=== PATIENT | female | born 1980 | race Caucasian/White ===

== ENCOUNTER 2021-03-25 12:25 | Outpatient (REF) | payer MEDICARE, MEDICAID, SELFPAY ==
--- NOTE | ~2021-03-25 | XR_ITS ---
EXAMINATION: BILATERAL KNEE X-RAY CLINICAL INFORMATION: Arthritis COMPARISON: None TECHNIQUE: 2 views of each knee FINDINGS: Bone alignment is normal. No fracture or dislocation is seen. Joint spaces are normal. There is no joint effusion. There is a small soft tissue calcification superficial to the right patellar tendon. XR/XR knee LT 2V IMPRESSION: No evidence of arthritis.
--- NOTE | ~2021-03-25 | XR_ITS ---
EXAMINATION: BILATERAL KNEE X-RAY CLINICAL INFORMATION: Arthritis COMPARISON: None TECHNIQUE: 2 views of each knee FINDINGS: Bone alignment is normal. No fracture or dislocation is seen. Joint spaces are normal. There is no joint effusion. There is a small soft tissue calcification superficial to the right patellar tendon. XR/XR knee RT 2V IMPRESSION: No evidence of arthritis.
== END 2021-03-25 12:26 | disposition home or self-care (01) ==
LOC: HO.XRAY 12:25
PROVIDERS: PCP Internal Medicine; Visit Provider Psychiatry & Neurology Neurology
DX: M19.90 Unspecified osteoarthritis, unspecified site (principal)
CPT/HCPCS: 73560

== ENCOUNTER 2021-05-07 12:37 | Outpatient (REF) | payer MEDICARE, MEDICAID, SELFPAY ==
[2021-05-07 13:33] LABS: MANUAL DIFF FLAG NO
[2021-05-07 13:50] LABS: Basophils Percent Auto 0.2 % (0-2); Eosinophils Absolute Auto 0.1 X10*3/uL (0.0-0.4); Eosinophils Percent Auto 0.5 % (0-4); Hematocrit 45.4 % (37-47); Hemoglobin 14.8 g/dl (12.0-16.0); Imm Gran Abs Auto 0.05 X10*3/uL (0.00-0.03); Imm Gran Pct Auto 0.5 % (0.0-0.4); Lymphocytes Absolute Auto 2.4 X10*3/uL (1.2-4.9); Lymphocytes Percent Auto 21.5 % (20-40); Mean Corpuscular HGB Conc 32.6 g/dl (31.0-35.0); Mean Corpuscular Hemoglobin 27.2 pg (27.0-33.0); Mean Corpuscular Volume 83.3 fL (80-98); Mean Platelet Volume 10.7 fL (9.4-12.3); Monocytes Absolute Auto 0.9 X10*3/uL (0.1-1.2); Monocytes Percent Auto 8.2 % (2-11); Neutrophils Absolute Auto 7.5 X10*3/uL (2.0-8.3); Neutrophils Percent Auto 69.1 % (45-73); Platelet Count 347 X10*3/uL (160-400); Red Blood Count 5.45 X10*6/uL (4.20-5.50); Red Cell Distribution Width 13.9 % (11.0-16.0); White Blood Count 10.9 X10*3/uL (4.8-10.8)
[2021-05-07 14:04] LABS: Anion Gap 13 (12-20); Blood Urea Nitrogen 9 mg/dL (9-16); Calcium 10.5 mg/dL (8.4-10.2); Carbon Dioxide 27 mmol/L (22-29); Chloride 105 mmol/L (96-108); Estimated Glomerular Filt Rate > 60; Glucose Random 115 mg/dL (60-115); Potassium 4.3 mmol/L (3.3-5.1); Sodium 141 mmol/L (135-145)
[2021-05-07 14:13] LABS: Thyroid Stimulating Hormone 1.12 uIU/mL (0.32-4.0)
[2021-05-07 14:42] LABS: Erythrocyte Sedimentation Rate 23 MM/HR (0-20)
[2021-05-08 13:06] LABS: Lyme Abs Screen <0.90 index
== END 2021-05-07 12:38 | disposition home or self-care (01) ==
LOC: HO.LAB 12:37
PROVIDERS: PCP Internal Medicine; Visit Provider Psychiatry & Neurology Neurology
DX: G25.81 Restless legs syndrome (principal)
CPT/HCPCS: 36415; 80048; 82550; 84443; 85025; 85652; 86617; 86618

== ENCOUNTER → 2021-05-13 11:16 | Outpatient (BNVA) | payer MEDICARE, MEDICAID, SELFPAY | PROVIDERS: PCP Internal Medicine; Referring Provider Internal Medicine; Visit Provider Surgery | DX: K59.09 Other constipation (principal); K21.9 Gastro-esophageal reflux disease without esophagitis | CPT/HCPCS: 46600; 99212 ==

== ENCOUNTER 2021-06-18 09:25 | Emergency (ER) | payer MEDICARE, MEDICAID, SELFPAY ==
--- NOTE | ~2021-06-18 | CT_ITS ---
EXAMINATION: CT ABDOMEN AND PELVIS WITHOUT CONTRAST CLINICAL INFORMATION: No bowel movements for 5 days. Abdominal pain. COMPARISON: None TECHNIQUE: Multidetector volumetric imaging was performed from the superior aspect of the liver through the pubic symphysis. Sagittal and coronal reformatted images were obtained on the technologist's workstation. This CT examination was performed using dose optimization techniques as appropriate, variously including the following: *Automated exposure control *Adjustment of mA and/or kV according to patient size (this includes techniques or standardized protocols for targeted exams where dose is matched to indication/reason for exam; i.e. extremities or head) *Use of iterative reconstruction technique DLP: 1034 mGy-cm FINDINGS: LUNG BASES: The lung bases are clear. There is minimal left lateral pleural thickening. LIVER, GALLBLADDER, AND BILIARY TREE: The liver is normal in size, shape, and diffuse hypoattenuation attenuation. No focal hepatic lesion or biliary ductal dilatation is present. The gallbladder is unremarkable with no evidence of radiopaque gallstones, gallbladder wall thickening, or obvious pericholecystic inflammatory changes. PANCREAS: Unremarkable. SPLEEN: Unremarkable. ADRENAL GLANDS: Unremarkable. KIDNEYS AND URETERS: The kidneys are normal in size, shape, and attenuation. No hydronephrosis, hydroureter, or calculi seen. No perinephric stranding. BLADDER: Unremarkable. GASTROINTESTINAL TRACT: There is scattered stool and diverticuli in colon most prominent in the sigmoid region without distention. The small bowel loops are normal caliber. Appendix normal caliber. ABDOMINAL WALL: There is small lumbar canal hernia containing fat. LYMPH NODES: Normal. VASCULAR: Unremarkable. PELVIC VISCERA: Unremarkable. OSSEOUS STRUCTURES: Unremarkable. CT/CT abdomen pelvis wo con IMPRESSION: Mild constipation with mild scattered colonic diverticulosis without diverticulitis. Mild hepatic steatosis without focal lesion.
[2021-06-18 10:03] VITALS: BP 152/116; PULSE 108; RESP 18; TEMP 37.1; O2SAT 96; BMI 45.1
--- NOTE | 2021-06-18 10:18 | ED_ITS ---
HPI - Abdominal Pain General Chief Complaint: Abdominal Pain Stated Complaint: abd pain Time Seen by Provider: 06/18/21 10:09 Source: patient Mode of arrival: ambulatory Limitations: no limitations History of Present Illness HPI narrative: 40-year-old female came in for evaluation of abdominal pain and constipation. This is a 40-year-old female with chronic constipation issue, patient sees GI for chronic gastric issue, no bowel movement for the past week, patient feels hard stool in the vault, patient also known history of hemorrhoid. Patient had some rectal bleeding. Only past abdominal surgical history was laparoscopic fallopian tube removal wall and endometriosis. Related Data Home Medications Medication Instructions Recorded Confirmed alprazolam 0.5 mg tablet 0.5 - 1 mg PO DAILY 05/13/21 05/13/21 carvedilol 25 mg tablet 25 mg PO BID 05/13/21 05/13/21 chlorthalidone 25 mg tablet 25 mg PO DAILY 05/13/21 05/13/21 codeine 10 mg-guaifenesin 100 mg/5 5 ml PO Q4-6H PRN 05/13/21 05/13/21 mL oral liquid fluticasone propionate 44 2 puff PO BID 05/13/21 05/13/21 mcg/actuation HFA aerosol inhaler (Flovent HFA) tramadol 50 mg tablet 50 mg PO TID PRN 05/13/21 05/13/21 valsartan 160 mg tablet 160 mg PO BID 05/13/21 05/13/21 Previous Rx's Medication Instructions Recorded docusate sodium 100 mg capsule 100 mg PO BID #60 cap 05/13/21 (Colace) Allergies Allergy/AdvReac Type Severity Reaction Status Date / Time bee pollen [BEE STINGS] Allergy Severe ANAPHYLAXIS Unverified 05/10/20 14:50 acetaminophen [From TYLENOL] Allergy Intermediate HIVES Unverified 05/10/20 14:50 divalproex sodium [Depakote] Allergy Unknown unsure Verified 03/26/20 00:00 bee stings Allergy Unknown Uncoded 03/26/20 00:00 Review of Systems Review of Systems All other systems are reviewed and are negative Constitutional: Reports as per HPI and Reports no additional constitutional complaints Eyes: Reports as per HPI and Reports no additional eye complaints Reports system reviewed and no additional complaints, except as documented Cardiovascular: Reports as per HPI and Reports no additional cardiovascular complaints Respiratory: Reports as per HPI and Reports no additional respiratory complaints Gastrointestinal: Reports as per HPI and Reports no additional gastrointestinal complaints Genitourinary: Reports no additional female genitourinary complaints Musculoskeletal: Reports no additional musculoskeletal complaints Skin/Breast: Reports system reviewed and no additional complaints, except as docu Psychiatric: Reports no additional psychiatric complaints Endocrine: Reports no additional endocrine complaints Hematologic/Lymphatic: Reports no additional hematologic/lymphatic complaints Allergic/Immunologic: Reports no additional allergic/immunologic complaints Reports system reviewed and no additional complaints, except as documented and Reports Abnormal speech present Physical Exam Vital Signs: Vital Signs: Last Vital Signs Temp 98.7 F 06/18/21 10:03 Pulse 91 06/18/21 15:52 Resp 16 06/18/21 15:52 BP 170/114 H 06/18/21 15:52 Pulse Ox 97 06/18/21 15:52 Body Mass Index 45.1 Vital signs have been reviewed as appeared to be correct. Blood pressure elevated. Heart rate elevated. Respiration rate normal. Temperature normal. Oxygen saturation normal. Appearance: Alert. Oriented X3. No acute distress. Head: Normal external exam. Normocephalic. Atraumatic. No Horton signs noted. No raccoon eyes noted Eyes: PERRLA. EOMI. Conjunctiva and sclera normal. Eyelids normal. ENT: TM's Normal. Pharynx normal. Uvula midline. Moist mucous membranes. No trismus noted. No drooling noted. No muffled voice noted. Neck: Normal inspection. Neck supple. FROM. No adenopathy. Thyroid Normal. No meningeal signs. No neck mass noted. CVS: Normal heart rate and rhythm. Heart sound normal. No murmurs noted. Pulses normal throughout. Respiratory: No respiratory distress. Painless inspiration. Breath sounds normal. No wheezes/rales/rhonchi noted. Chest nontender. No accessory muscle u danielle noted or decreased air movement noted. Abdomen: Soft and nontender. Bowel sounds normal in all 4 quadrants. No distention noted. No organomegaly noted. No visible injury noted. Rectal exam: Good rectal tone, internal hemorrhoid at 09:00 o'clock, no thrombosis, no active bleeding, hard stool in the vault. Back: No CVA tenderness. Full range of motion noted. Skin: Skin warm and dry. Normal skin color. Normal skin turgor. No rashes/lesions/lacerations noted. Extremities: No lower extremity edema. Extremities exhibit normal range of motion. Extremities nontender. Neuro: Oriented X 3. Cranial nerve exam: II-XII are grossly intact No motor deficit. No sensory deficit. Reflexes normal. Course Course Course Narrative: Assessment and plan. 40-year-old female with chronic constipation, been evaluated at surgery office in the past, physical exam, labs, CT of the abdomen pelvis are consistent with constipation, patient received enemas and milk of magnesia in the ED. Patient is refusing manual disimpaction because the pain. Patient will follow- up with GI next week patient was instructed to drink plenty of fluids and eat more fiber diet. Reevaluation(s) Reevaluation #1: Patient initially came in with abdominal pain, physical exam is consistent with constipation with hard stool in the vault, patient refuse manual disimpaction due to severe pain, patient was given enema and milk of magnesia, patient in room appears comfortable with no acute distress using her phone while she is in the emergency room, patient is requesting more testing. 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 I felt that the workup was done in the emergency room for a simple diagnosis of constipation is sufficient, Patient claimed that the workup was done in the emergency room was suboptimal patient stated that she will file complains that she did not get enough management of her condition. Time: 16:16 [place] - Abdominal Pain Medical Records Attestation: I reviewed the patient's medical records. Lab Data Attestation: I reviewed the patient's lab results. Result diagrams: 06/18/21 12:07 06/18/21 12:07 Labs: Lab Results 06/18/21 06/18/21 06/18/21 Range/Units 12:07 12:07 13:38 WBC 9.1 (4.8-10.8) X10*3/uL RBC 5.03 (4.20-5.50) X10*6/uL Hgb 13.7 (12.0-16.0) g/dl Hct 41.9 (37-47) % MCV 83.3 (80-98) fL MCH 27.2 (27.0-33.0) pg MCHC 32.7 (31.0-35.0) g/dl RDW 13.7 (11.0-16.0) % Plt Count 313 (160-400) X10*3/uL MPV 10.4 (9.4-12.3) fL Immature Gran % (Auto) 0.4 (0.0-0.4) % Neut % (Auto) 56.5 (45-73) % Lymph % (Auto) 32.5 (20-40) % [place] % (Auto) 9.1 (2-11) % Eos % (Auto) 1.2 (0-4) % Baso % (Auto) 0.3 (0-2) % Lymph # (Auto) 3.0 (1.2-4.9) X10*3/uL [place] # (Auto) 0.8 (0.1-1.2) X10*3/uL Eos # (Auto) 0.1 (0.0-0.4) X10*3/uL Baso # (Auto) 0.0 (0.0-0.2) X10*3/uL Abs Immat Gran (auto) 0.04 H (0.00-0.03) X10*3/uL Absolute Neuts (auto) 5.2 (2.0-8.3) X10*3/uL Absolute Nucleated RBC 0.000 (0.0-0.012) X10*3/uL Nucleated RBC % (auto) 0.0 (0.0-0.2) /100WBC Sodium 140 (135-145) mmol/L Potassium 3.8 (3.3-5.1) mmol/L Chloride 103 (96-108) mmol/L Carbon Dioxide 30 H (22-29) mmol/L Anion Gap 11 L (12-20) BUN 12 (9-16) mg/dL Creatinine 0.74 (0.5-1.4) mg/dL Estim Creat Clear Calc 129.7 Estimated GFR > 60 Random Glucose 100 (60-115) mg/dL Calcium 9.4 D (8.4-10.2) mg/dL Total Bilirubin 0.5 (0.0-1.0) mg/dL Direct Bilirubin 0.2 (0.0-0.5) mg/dL AST 18 (5-31) U/L ALT 22 (0-31) U/L Alkaline Phosphatase 58 (39-117) U/L Total Protein 6.6 (6.5-8.0) g/dL Albumin 3.9 (3.5-5.0) g/dL Lipase 17 (8-78) U/L Urine Color RED Urine Appearance CLOUDY Urine pH 7.0 (5.0-8.0) Ur Specific [place] 1.020 (1.005-1.025) Urine Protein 3+ H (NEG-TRACE) MG/DL Urine Glucose (UA) NEG (NEG) MG/DL Urine Ketones 5 (NEG) MG/DL Urine Blood 3+ H (NEG) Urine Nitrite SEE NOTE (NEG) Ur Leukocyte Esterase TRACE H (NEG) Urine RBC TNTC H (0) /HPF Urine WBC 1-4 (0-4) /HPF Ur Squamous Epith Cells 1+ /LPF Urine Bacteria TRACE /LPF Urine Mucus 1+ /LPF Urine Test (NEGATIVE) 06/18/21 Range/Units 13:38 WBC (4.8-10.8) X10*3/uL RBC (4.20-5.50) X10*6/uL Hgb (12.0-16.0) g/dl Hct (37-47) % MCV (80-98) fL MCH (27.0-33.0) pg MCHC (31.0-35.0) g/dl RDW (11.0-16.0) % Plt Count (160-400) X10*3/uL MPV (9.4-12.3) fL Immature Gran % (Auto) (0.0-0.4) % Neut % (Auto) (45-73) % Lymph % (Auto) (20-40) % [place] % (Auto) (2-11) % Eos % (Auto) (0-4) % Baso % (Auto) (0-2) % Lymph # (Auto) (1.2-4.9) X10*3/uL [place] # (Auto) (0.1-1.2) X10*3/uL Eos # (Auto) (0.0-0.4) X10*3/uL Baso # (Auto) (0.0-0.2) X10*3/uL Abs Immat Gran (auto) (0.00-0.03) X10*3/uL Absolute Neuts (auto) (2.0-8.3) X10*3/uL Absolute Nucleated RBC (0.0-0.012) X10*3/uL Nucleated RBC % (auto) (0.0-0.2) /100WBC Sodium (135-145) mmol/L Potassium (3.3-5.1) mmol/L Chloride (96-108) mmol/L Carbon Dioxide (22-29) mmol/L Anion Gap (12-20) BUN (9-16) mg/dL Creatinine (0.5-1.4) mg/dL Estim Creat Clear Calc Estimated GFR Random Glucose (60-115) mg/dL Calcium (8.4-10.2) mg/dL Total Bilirubin (0.0-1.0) mg/dL Direct Bilirubin (0.0-0.5) mg/dL AST (5-31) U/L ALT (0-31) U/L Alkaline Phosphatase (39-117) U/L Total Protein (6.5-8.0) g/dL Albumin (3.5-5.0) g/dL Lipase (8-78) U/L Urine Color Urine Appearance Urine pH (5.0-8.0) Ur Specific [place] (1.005-1.025) Urine Protein (NEG-TRACE) MG/DL Urine Glucose (UA) (NEG) MG/DL Urine Ketones (NEG) MG/DL Urine Blood (NEG) Urine Nitrite (NEG) Ur Leukocyte Esterase (NEG) Urine RBC (0) /HPF Urine WBC (0-4) /HPF Ur Squamous Epith Cells /LPF Urine Bacteria /LPF Urine Mucus /LPF Urine Test NEGATIVE (NEGATIVE) Imaging Data CT scan - abdomen: Radiologist's impression: Mild constipation with mild scattered colonic diverticulosis without diverticulitis. ? Mild hepatic steatosis without focal lesion.? Discharge Plan Discharge Clinical Impression: Chronic constipation, Abdominal pain Patient Disposition: Home, Self-Care Instructions: Constipation (ED), High Fiber Diet (ED) Prescriptions: No Action codeine-guaifenesin 10-100 mg/5 mL liquid 5 ml PO Q4-6H PRNRF: 0 Flovent HFA 44 mcg/actuation HFA aerosol inhaler 2 puff PO BID RF: 0 valsartan 160 mg tablet 160 mg PO BID RF: 0 carvedilol 25 mg tablet 25 mg PO BID RF: 0 chlorthalidone 25 mg tablet 25 mg PO DAILY RF: 0 tramadol 50 mg tablet 50 mg PO TID PRNRF: 0 alprazolam 0.5 mg tablet 0.5 - 1 mg PO DAILY RF: 0 docusate sodium [Colace] 100 mg capsule 100 mg PO BID Qty: 60 RF: 0 Referrals: Fernando William DO [Primary Care Provider] - 2 days PMF Past Medical History Medical History Chronic constipation GERD (gastroesophageal reflux disease) Social History Social History Alcohol intake: unknown Patient Tobacco Use Status: Tobacco use Unknown Use of substances other than those prescribed or required for medical reasons: Unknown Advance Directives: No
[2021-06-18] MEDS: Mineral OiL enema 133 ML ENEMA PR (10:21)
[2021-06-18] MEDS: Milk of Magnesia 30 ML ORAL.SUSP PO (10:21)
[2021-06-18 12:14] LABS: MANUAL DIFF FLAG NO
[2021-06-18 12:18] LABS: Basophils Percent Auto 0.3 % (0-2); Eosinophils Absolute Auto 0.1 X10*3/uL (0.0-0.4); Eosinophils Percent Auto 1.2 % (0-4); Hematocrit 41.9 % (37-47); Hemoglobin 13.7 g/dl (12.0-16.0); Imm Gran Abs Auto 0.04 X10*3/uL (0.00-0.03); Imm Gran Pct Auto 0.4 % (0.0-0.4); Lymphocytes Percent Auto 32.5 % (20-40); Mean Corpuscular HGB Conc 32.7 g/dl (31.0-35.0); Mean Corpuscular Hemoglobin 27.2 pg (27.0-33.0); Mean Corpuscular Volume 83.3 fL (80-98); Mean Platelet Volume 10.4 fL (9.4-12.3); Monocytes Absolute Auto 0.8 X10*3/uL (0.1-1.2); Monocytes Percent Auto 9.1 % (2-11); Neutrophils Absolute Auto 5.2 X10*3/uL (2.0-8.3); Neutrophils Percent Auto 56.5 % (45-73); Platelet Count 313 X10*3/uL (160-400); Red Blood Count 5.03 X10*6/uL (4.20-5.50); Red Cell Distribution Width 13.7 % (11.0-16.0); White Blood Count 9.1 X10*3/uL (4.8-10.8)
[2021-06-18 12:44] LABS: Alanine Aminotransferase 22 U/L (0-31); Albumin Level 3.9 g/dL (3.5-5.0); Alkaline Phosphatase 58 U/L (39-117); Anion Gap 11 (12-20); Aspartate Amino Transferase 18 U/L (5-31); Bilirubin Direct 0.2 mg/dL (0.0-0.5); Bilirubin Total 0.5 mg/dL (0.0-1.0); Blood Urea Nitrogen 12 mg/dL (9-16); Calcium 9.4 mg/dL (8.4-10.2); Carbon Dioxide 30 mmol/L (22-29); Chloride 103 mmol/L (96-108); Creatinine Clr Calc Pharmacy 129.7; Estimated Glomerular Filt Rate > 60; Glucose Random 100 mg/dL (60-115); Lipase 17 U/L (8-78); Potassium 3.8 mmol/L (3.3-5.1); Sodium 140 mmol/L (135-145); Total Protein 6.6 g/dL (6.5-8.0)
[2021-06-18] MEDS: Ibuprofen 600 MG TABLET PO (13:13)
[2021-06-18 13:33] VITALS: BP 155/113; PULSE 112; O2SAT 96
[2021-06-18] MEDS: 0.9 % Sodium Chloride 1,000 ML 999 ML IVCONT (13:45)
[2021-06-18 13:53] LABS: UPreg QC Valid YES; Urine Pregnancy NEGATIVE (NEGATIVE)
[2021-06-18 13:54] LABS: Appearance Urine CLOUDY; Color Urine RED; Glucose Urine UA NEG (NEG); Leukocyte Esterase Urine TRACE (NEG); UACC Culture Trigger YES; Urine Blood 3+ (NEG); Urine Ketones 5 MG/DL (NEG); Urine Protein 3+ MG/DL (NEG-TRACE)
[2021-06-18 14:05] LABS: Bacteria Urine TRACE /LPF; Mucus Urine 1+ /LPF; RBC Urine TNTC /HPF (0); Squamous Epithelial Cell Urine 1+ /LPF
[2021-06-18 15:52] VITALS: BP 170/114; PULSE 91; RESP 16; O2SAT 97
== END 2021-06-18 16:47 | disposition home or self-care (01) ==
PROVIDERS: Emergency Provider Emergency Medicine; PCP Internal Medicine
DX: K59.09 Other constipation (principal); R10.9 Unspecified abdominal pain; I10 Essential (primary) hypertension; E78.5 Hyperlipidemia, unspecified; F17.200 Nicotine dependence, unspecified, uncomplicated
CPT/HCPCS: 36415; 74176; 80048; 80076; 81001; 81003; 81025; 83690; 85025; 87086; 96360; 99285

== ENCOUNTER 2021-06-20 11:44 | Outpatient (REF) | payer MEDICARE, MEDICAID, SELFPAY ==
[2021-06-21 10:10] LABS: H Pylori Breath Test Negative (Negative)
== END 2021-06-20 11:45 | disposition home or self-care (01) ==
LOC: HO.LNP 11:44
PROVIDERS: PCP Internal Medicine; Referring Provider Internal Medicine; Visit Provider Nurse Practitioner
DX: R10.13 Epigastric pain (principal); K21.9 Gastro-esophageal reflux disease without esophagitis; K59.09 Other constipation
CPT/HCPCS: 83013; 99202

== ENCOUNTER → 2021-07-04 15:53 | Outpatient (BNVA) | payer MEDICARE, MEDICAID, SELFPAY | PROVIDERS: PCP Internal Medicine; Referring Provider Internal Medicine; Visit Provider Nurse Practitioner | DX: K64.9 Unspecified hemorrhoids (principal); K59.09 Other constipation; K21.9 Gastro-esophageal reflux disease without esophagitis | CPT/HCPCS: 99212 ==

== ENCOUNTER → 2021-09-24 13:50 | Outpatient (BNVA) | payer MEDICARE, MEDICAID, SELFPAY | PROVIDERS: PCP Internal Medicine; Referring Provider Internal Medicine; Visit Provider Psychiatry & Neurology Neurology | DX: R06.83 Snoring (principal); R06.81 Apnea, not elsewhere classified; G47.00 Insomnia, unspecified; G47.10 Hypersomnia, unspecified | CPT/HCPCS: 99202 ==

== ENCOUNTER → 2021-10-25 20:30 | Outpatient (REF) | payer MEDICARE, MEDICAID, SELFPAY | LOC: HO.SL 20:30 | PROVIDERS: Visit Provider Psychiatry & Neurology Neurology | DX: Z13.89 Encounter for screening for other disorder (principal) ==

== ENCOUNTER → 2022-04-09 08:29 | Outpatient (BNVA) | payer MEDICARE, MEDICAID, SELFPAY | PROVIDERS: PCP Internal Medicine; Visit Provider Nurse Practitioner | DX: K59.09 Other constipation (principal); K21.9 Gastro-esophageal reflux disease without esophagitis; K64.9 Unspecified hemorrhoids; K62.5 Hemorrhage of anus and rectum; R10.13 Epigastric pain; E03.9 Hypothyroidism, unspecified; E66.01 Morbid (severe) obesity due to excess calories; Z68.42 Body mass index [BMI] 45.0-49.9, adult; G47.33 Obstructive sleep apnea (adult) (pediatric) | CPT/HCPCS: 99212 ==

== ENCOUNTER 2022-04-17 12:48 | Outpatient (REF) | payer MEDICARE, MEDICAID, SELFPAY ==
[2022-04-17 13:07] LABS: MANUAL DIFF FLAG NO
[2022-04-17 14:05] LABS: Basophils Absolute Auto 0.1 X10*3/uL (0.0-0.2); Basophils Percent Auto 0.7 % (0-2); Eosinophils Absolute Auto 0.1 X10*3/uL (0.0-0.4); Eosinophils Percent Auto 1.5 % (0-4); Hematocrit 42.5 % (37.0-47.0); Hemoglobin 14.1 g/dl (12.0-16.0); Imm Gran Abs Auto 0.04 X10*3/uL (0.00-0.03); Imm Gran Pct Auto 0.4 % (0.0-0.4); Lymphocytes Absolute Auto 3.5 X10*3/uL (1.2-4.9); Mean Corpuscular HGB Conc 33.2 g/dl (31.0-35.0); Mean Corpuscular Hemoglobin 27.8 pg (27.0-33.0); Mean Corpuscular Volume 83.8 fL (80.0-98.0); Mean Platelet Volume 10.8 fL (9.4-12.3); Monocytes Percent Auto 10.7 % (2-11); Neutrophils Absolute Auto 4.5 x10*3/uL (2.0-8.3); Neutrophils Percent Auto 48.7 % (45-73); Platelet Count 317 X10*3/uL (160-400); Red Blood Count 5.07 X10*6/uL (4.20-5.50); White Blood Count 9.2 X10*3/uL (4.8-10.8)
[2022-04-17 14:48] LABS: Alanine Aminotransferase 15 U/L (0-31); Alkaline Phosphatase 78 U/L (39-117); Anion Gap 15 (12-20); Aspartate Amino Transferase 16 U/L (5-31); Bilirubin Total 0.3 mg/dL (0.0-1.0); Blood Urea Nitrogen 14 mg/dL (9-16); Calcium 9.1 mg/dL (8.4-10.2); Carbon Dioxide 25 mmol/L (22-29); Chloride 103 mmol/L (96-108); Estimated Glomerular Filt Rate > 60; Glucose Random 93 mg/dL (60-115); Potassium 4.2 mmol/L (3.3-5.1); Sodium 139 mmol/L (135-145); Total Protein 7.1 g/dL (6.5-8.0)
[2022-04-17 15:03] LABS: TSH reflex Free T4 43.73 uIU/mL (0.32-4.0)
[2022-04-17 15:35] LABS: Free T4 (Free Thyroxine) 0.58 ng/dL (0.71-1.85)
== END 2022-04-17 12:49 | disposition home or self-care (01) ==
LOC: HO.LAB 12:48
PROVIDERS: PCP Internal Medicine; Visit Provider Nurse Practitioner
DX: R10.13 Epigastric pain (principal); E03.9 Hypothyroidism, unspecified; K62.5 Hemorrhage of anus and rectum
CPT/HCPCS: 36415; 80053; 84439; 84443; 85025; 86003

== ENCOUNTER → 2022-05-28 13:26 | Outpatient (BNVA) | payer MEDICARE, MEDICAID, SELFPAY | PROVIDERS: PCP Internal Medicine; Visit Provider Nurse Practitioner | DX: K59.09 Other constipation (principal); K21.9 Gastro-esophageal reflux disease without esophagitis; E03.9 Hypothyroidism, unspecified; E66.01 Morbid (severe) obesity due to excess calories; Z68.42 Body mass index [BMI] 45.0-49.9, adult | CPT/HCPCS: 99212 ==

== ENCOUNTER 2022-09-15 08:02 | Day surgery (SDC) | payer MEDICARE, MEDICAID, SELFPAY ==
[2022-09-15 09:02] LABS: UPreg QC Valid YES; Urine Pregnancy NEGATIVE (NEGATIVE)
--- NOTE | 2022-09-15 09:32 | MHC.SHP ---
Pre-Procedural Eval Section A Date of Service: 09/15/22 The patient is an INPATIENT: No The History & Physical has been completed within 30 days and I have reviewed it.: No Section B Chief Complaint: Abd pain,hemorr,rectal bleeding,constipation Details of Present Illness: GERD, dyspepsia, constipation, rectal bleeding Relevant Family History (Specify if Yes): No Relevant Social History: Tobacco Use (former smoker) Present Medications: see Short Stay Collaborative assessment Medical History: Significant History (Bipolar 1 disorder Borderline personality disorder Chronic constipation Endometriosis Epigastric pain Fibromyalgia GERD (gastroesophageal reflux disease)) History of Previous Operations: Relevant previous surgery/procedure and date(s) (History of tonsillectomy, history of hemorrhoidectomy) Allergies: Allergies Allergy/AdvReac Type Severity Reaction Status Date / Time bee pollen [BEE STINGS] Allergy Severe ANAPHYLAXIS Verified 09/10/22 12:24 acetaminophen [From TYLENOL] Allergy Intermediate HIVES Verified 09/10/22 12:24 divalproex sodium [Depakote] Allergy Unknown unsure Verified 09/10/22 12:24 Review of Systems Sugical H&P ROS: Negative: Constitution, Cardiovascular and Respiratory and Yes, Specify: Gastrointestinal (GERD, constipation) Exam Surgical H&P Exam: Normal: Heart, Normal: Lungs, Normal: Extremities and Normal: Abdomen Plan Diagnosis/Plan: Unchanged I have reviewed the history and physical and performed a pertinent physical examination on my patient. No changes have occurred unless specified. Time Spent With Patient Time: Total time managing care of this patient today ____ minutes.
--- NOTE | 2022-09-15 11:45 | P.OP_ITS ---
Operative Note Operative Note Date of Service: 09/15/22 Narrative: Pre-op diagnosis: GERD, dyspepsia, constipation, rectal bleeding Post-op diagnosis:?other (Colon polyps, diverticulosis, hemorrhoids) Surgeon: Medardo Dunham MD Anesthesia:?MAC FLEXIBLE TRANSORAL UPPER GASTROINTESTINAL ENDOSCOPY - DISCONTINUED AND COLONOSCOPY TILL CECUM WITH SNARE POLYPECTOMY UPPER ENDOSCOPY Consent: Indications for the procedure and potential complications of bleeding, perforation, reaction to medications and missed diagnosis were discussed with the patient and informed consent was obtained. Instrument: Olympus GIF H 190 mid size upper endoscope Monitoring: Vital signs and clinical assessment, continuous EKG monitoring, Pulse oximetry, Carbon Dioxide monitoring and blood pressure monitoring were done throughout the procedure. Procedure: The patient was placed in the left lateral decubitis position and pre-procedure medications were administered and a bite block was placed. The endoscope was inserted into the mouth and advanced under direct vision to the esophagus. Upper endoscope was removed since patient desaturated. Procedure was aborted due to suspected sleep apnea. Findings: EGD was aborted after patient de-saturated and had a brief period of asystole Intervention: Procedure was aborted COLONOSCOPY PROCEDURE NOTE Consent: Indications for the procedure and potential complications of bleeding, perforation, reaction to medications and missed diagnosis were discussed with the patient and informed consent was obtained. Instrument: Olympus PCF H 190 L variable stiffness pediatric colonoscope Monitoring: Vital signs and clinical assessment, intermittent blood pressure monitoring, continuous EKG monitoring, Pulse oximetry and Carbon Dioxide monitoring were done throughout the procedure. Colon withdrawl time was 24 minutes. Procedure: The patient was placed in the left lateral decubitis position and pre-procedure medications were administered. After a digital rectal examination of the ano-rectum, the video colonoscope was inserted into the rectum and advanced through the colon to the cecum. The colonoscope was slowly withdrawn in a retrograde panoramic fashion and the colon mucosa was carefully examined including a retroflexed view of the rectum. Findings and interventions are described below. Procedure Difficulty: : Without difficulty Findings: Terminal Ileum: Not evaluated Cecum: A 10-12 mm sessile polyp removed by a hot snare Ascending Colon: Normal Transverse Colon: Normal Descending Colon: Moderate diverticulosis Sigmoid Colon: A 10-12 mm sessile polyp removed with a hot snare. A 2 to 2.5 cms sessile polyp at 40 cms. Polyp was removed with hot snare and polypectomy site was marked by Cece ink. Moderate diverticulosis Rectum: Normal Ano-rectum: Moderate internal hemorrhoids Colon preparation: Good Impression and Post Procedure Diagnosis: Endoscopy Findings: EGD was aborted after patient de-saturated and had a brief period of asystole Colonoscopy Findings: Two medium sized and one large polyp removed Moderate diverticulosis seen in the left colon Moderate hemorrhoids on retroflexed exam. Plan: Await pathology results Patient has an appointment on 10/09/22 in the GI Clinic with Medardo Dunham M.D. Anesthesia advised to schedule Colonoscopy with GA - possibly at [facility] [place], [place]. Repeat Colonoscopy interval based on path results - in 2 years if polyps are adenomatous and 10 years if polyps are hyperplastic. Colon polyps and diverticulosis handouts were given in the discharge area
--- NOTE | 2022-09-15 11:45 | PM.OP ---
Brief Operative Note Date of Service: 09/15/22 Pre-op diagnosis: GERD, dyspepsia, constipation, rectal bleeding Post-op diagnosis: other (Colon polyps, diverticulosis, hemorrhoids) Procedure: EGD - PROCEDURE DISCONTINUED DUE TO DESATURATION WITH ASYSTOLE. COLONOSCOPY TO CECUM WITH SNARE POLYPECTOMY Surgeon: Medardo Dunham MD Anesthesia: MAC Was an Machine Specialist used for this Procedure?: No Machine Specialist: Katie Huerta Estimated blood loss (mL): 0 Pathology: other (A. cecal polyp B. sigmoid colon polyp C. sigmoid colon polyp @ 40 cms) Condition: stable Disposition: PACU
[2022-09-15 12:47] VITALS: BP 129/76; PULSE 83; RESP 14; TEMP 36.4; O2SAT 97
[2022-09-15] MEDS: Lactated Ringers 1,000 ML 100 ML IVCONT (12:55)
--- NOTE | 2022-09-15 13:56 | P.CONAN_ITS ---
HPI - Anesthesia Eval Consult details Narrative: 42 F for EGD and colonoscopy recurrent pneumonias , last 2 months ago , Marijuana smoker . [facility] Active Problems Active Problems: All Active Problems (Updated 09/10/22 @ 12:23 by Mayra June RN) High cholesterol (Acute) HTN (hypertension), benign (Acute) COPD mixed type (Acute) Smoker (Acute) Major depressive disorder (Acute) Panic attacks (Acute) Bipolar disorder (Acute) PTSD (post-traumatic stress disorder) (Acute) Chronic pain syndrome (Acute) Fibromyalgia (Acute) Low back pain (Acute) Migraines (Acute) Hemorrhoids (Acute) Snoring (Acute) Witnessed apneic spells (Acute) Insomnia (Acute) Hypersomnia (Acute) Rectal bleeding (Acute) Epigastric pain (Acute) Hypothyroid (Acute) Morbid obesity (Acute) RA (obstructive sleep apnea) (Acute) Fibromyalgia (Acute) Bipolar 1 disorder (Acute) Endometriosis (Acute) Borderline personality disorder (Acute) GERD (gastroesophageal reflux disease) (Acute) Chronic constipation (Acute) Past Medical History Medical History (Updated 09/10/22 @ 12:23 by Mayra June RN) Anxiety Arthritis Asthma Bipolar 1 disorder Borderline personality disorder Chronic constipation Endometriosis Epigastric pain Fibromyalgia GERD (gastroesophageal reflux disease) HTN (hypertension) Sleep apnea Family History Family history of problems with anesthesia: Unobtainable Surgical History Surgical History (Updated 09/10/22 @ 12:22 by Mayra June RN) History of myringotomy History of tonsillectomy Hx of hemorrhoidectomy History of Problems with Anesthesia: No Social History Social History Alcohol intake: unknown Patient Tobacco Use Status: Tobacco use Unknown Meds Allergies Allergy/AdvReac Type Severity Reaction Status Date / Time bee pollen [BEE STINGS] Allergy Severe ANAPHYLAXIS Verified 09/10/22 12:24 acetaminophen [From TYLENOL] Allergy Intermediate HIVES Verified 09/10/22 12:24 divalproex sodium [Depakote] Allergy Unknown unsure Verified 09/10/22 12:24 Home Medications Medication Instructions Recorded Confirmed Last Taken Type alprazolam 0.5 mg tablet 0.5 - 1 mg PO DAILY 05/13/21 09/10/22 Unknown History carvedilol 25 mg tablet 25 mg PO BID 05/13/21 09/10/22 Unknown History chlorthalidone 25 mg tablet 25 mg PO DAILY 05/13/21 09/10/22 Unknown History tramadol 50 mg tablet 50 mg PO TID PRN Pain 05/13/21 09/10/22 Unknown History valsartan 160 mg tablet 160 mg PO BID 05/13/21 09/10/22 Unknown History albuterol sulfate 90 mcg/actuation 0 mcg inhalation 09/24/21 Unknown History aerosol inhaler ibuprofen 800 mg tablet 800 mg PO TID 09/24/21 09/10/22 Unknown History fluticasone propionate 50 spray intranasal 04/09/22 Unknown History mcg/actuation nasal spray,suspension cetirizine 10 mg tablet 10 mg PO DAILY 05/28/22 09/10/22 Unknown History levothyroxine 125 mcg tablet 125 mcg PO DAILY 05/28/22 09/10/22 Unknown History Exam Exam Date and Time: September 15, 2022 1356 Height,Weight and Vital Signs: Last Vital Signs Temp 97.6 F 09/15/22 12:47 Pulse 83 09/15/22 12:47 Resp 14 09/15/22 12:47 BP 129/76 09/15/22 12:47 Pulse Ox 97 09/15/22 12:47 O2 Del Method 09/15/22 12:47 Pertinent Lab Results Pertinent Lab Results: Laboratory Tests 09/15/22 08:10 Urine Test NEGATIVE Airway Mallampati Class: IV TM Dist: >3cm Loose/Missing/Broken Teeth: Yes (multiple Chipped teeth , poor dentition overall ) Heart: S1,S2 Lungs: b/l breath sounds Assessment and Plan Assessment Anesthesia Assessment: Anesthesia Plan Discussed and Chart Reviewed Final Anesthetic Review Family History of Problems with Anesthesia: Unobtainable History of Problems with Anesthesia: No NPO: Yes ASA Class: III Final Preanesthetic Review: Meds/Allgs Chart Reviewed, Consent Obtained/Reviewed and Anes Risks/Benef Reviewed Patient Risk: High Procedure Risk: Intermediate Anesthetic Plan Anesthetic Plan: MAC: Disposition: Standard PACU
[2022-09-15 14:12] VITALS: BMI 51.6
[2022-09-15 15:27] VITALS: BP 142/86; PULSE 95; RESP 20; TEMP 37.2; O2SAT 93
[2022-09-15 15:40] VITALS: BP 115/65; PULSE 93; RESP 16; TEMP 36.6; O2SAT 95
[2022-09-15 16:08] VITALS: RESP 16
[2022-09-15 16:18] VITALS: RESP 16
== END 2022-09-15 16:22 | disposition home or self-care (01) ==
PROVIDERS: Anesthesiology; PCP Internal Medicine; Visit Provider Internal Medicine Gastroenterology
PROC: (CPT 45385; principal; 2022-09-15 09:20)
DX: K62.5 Hemorrhage of anus and rectum (principal); K59.09 Other constipation; D12.0 Benign neoplasm of cecum; K63.5 Polyp of colon; K57.30 Diverticulosis of large intestine without perforation or abscess without bleeding; K64.8 Other hemorrhoids; R10.9 Unspecified abdominal pain; R10.13 Epigastric pain; Z53.09 Procedure and treatment not carried out because of other contraindication; R09.89 Other specified symptoms and signs involving the circulatory and respiratory systems; Y83.8 Other surgical procedures as the cause of abnormal reaction of the patient, or of later complication, without mention of misadventure at the time of the procedure; Y73.0 Diagnostic and monitoring gastroenterology and urology devices associated with adverse incidents; Y92.234 Operating room of hospital as the place of occurrence of the external cause; K21.9 Gastro-esophageal reflux disease without esophagitis; G47.33 Obstructive sleep apnea (adult) (pediatric)
CPT/HCPCS: 45385; 43235; 81025; 88305; J2250; J3010

== ENCOUNTER → 2022-11-20 12:46 | Outpatient (BNVA) | payer MEDICARE, MEDICAID, SELFPAY | PROVIDERS: PCP Internal Medicine; Visit Provider Nurse Practitioner | DX: K21.9 Gastro-esophageal reflux disease without esophagitis (principal); K59.09 Other constipation; E03.9 Hypothyroidism, unspecified; D12.6 Benign neoplasm of colon, unspecified; R10.13 Epigastric pain; E66.01 Morbid (severe) obesity due to excess calories; F60.3 Borderline personality disorder; F31.9 Bipolar disorder, unspecified; Z68.43 Body mass index [BMI] 50.0-59.9, adult | CPT/HCPCS: 99212 ==

== ENCOUNTER 2023-03-09 06:15 | Outpatient (REF) | payer MEDICARE, MEDICAID, SELFPAY ==
[2023-03-09 05:43] LABS: MANUAL DIFF FLAG NO
[2023-03-09 05:53] LABS: Basophils Absolute Auto 0.1 X10*3/uL (0.0-0.2); Basophils Percent Auto 0.5 % (0-2); Eosinophils Absolute Auto 0.3 X10*3/uL (0.0-0.4); Eosinophils Percent Auto 3.1 % (0-4); Hematocrit 37.7 % (37.0-47.0); Hemoglobin 10.9 g/dl (12.0-16.0); Imm Gran Abs Auto 0.07 X10*3/uL (0.00-0.03); Imm Gran Pct Auto 0.7 % (0.0-0.4); Lymphocytes Absolute Auto 3.3 X10*3/uL (1.2-4.9); Lymphocytes Percent Auto 32.6 % (20-40); Mean Corpuscular HGB Conc 28.9 g/dl (31.0-35.0); Mean Corpuscular Hemoglobin 22.3 pg (27.0-33.0); Mean Corpuscular Volume 77.1 fL (80.0-98.0); Mean Platelet Volume 11.4 fL (9.4-12.3); Monocytes Percent Auto 9.6 % (2-11); Neutrophils Absolute Auto 5.5 x10*3/uL (2.0-8.3); Neutrophils Percent Auto 53.5 % (45-73); Platelet Count 299 X10*3/uL (160-400); Red Blood Count 4.89 X10*6/uL (4.20-5.50); White Blood Count 10.2 X10*3/uL (4.8-10.8)
[2023-03-09 06:17] LABS: Anion Gap 13 (12-20); Blood Urea Nitrogen 22 mg/dL (9-16); Calcium 9.6 mg/dL (8.4-10.2); Carbon Dioxide 29 mmol/L (22-29); Chloride 101 mmol/L (96-108); Estimated Glomerular Filt Rate 58; Glucose Random 232 mg/dL (60-115); Potassium 3.4 mmol/L (3.3-5.1); Sodium 140 mmol/L (135-145)
== END 2023-03-09 06:16 | disposition home or self-care (01) ==
LOC: HO.MMNH2L 06:15
PROVIDERS: Visit Provider Family Medicine
DX: I10 Essential (primary) hypertension (principal)
CPT/HCPCS: 36415; 80048; 85025

== ENCOUNTER 2023-05-20 10:04 | Outpatient (AMB) | payer MEDICARE, MEDICAID, SELFPAY ==
[2023-05-20 10:10] VITALS: BP 122/68; PULSE 116; O2SAT 97; BMI 52.7
--- NOTE | 2023-05-20 10:10 | MHC.OFFVIS ---
Intake Vital Signs 05/20/23 10:10 Height 5 ft 4 in Weight 307 lb BMI 52.7 BP 122/68 Blood Pressure Location Lt radial Position Sitting Pulse 116 H Pulse Source Pulse Oximeter Pulse Oximetry (%) 97 Oxygen Delivery Method Room Air Intake Visit Reasons: sleep apnea Intake Note: pt is here for follow up and states she has a lot going on, pt is back at home, Clinical Systems Analyst Required: No Allergies bee pollen [BEE STINGS] Allergy (Severe, Verified 05/20/23 13:34) ANAPHYLAXIS acetaminophen [From TYLENOL] Allergy (Intermediate, Verified 05/20/23 13:34) HIVES divalproex sodium [Depakote] Allergy (Unknown, Verified 05/20/23 13:34) unsure Medication List - Last Reconciled 05/20/23 by Yannick Gomez MD albuterol sulfate 90 mcg/actuation 0 mcg inhalation alprazolam 0.5 - 1 mg PO DAILY blood sugar diagnostic (FreeStyle Lite Strips) As directed budesonide-formoterol 160-4.5 mcg/actuation (Symbicort) 2 puffs inhalation BID carvedilol 25 mg PO BID cetirizine 10 mg PO DAILY chlorthalidone 25 mg PO DAILY cyclobenzaprine 10 mg PO TID famotidine 20 mg PO BEDTIME fluticasone propionate 50 mcg/actuation sprays intranasal hydrocortisone 2.5% (Proctosol HC) 1 appl [place] BID 30 days ibuprofen 800 mg PO TID levothyroxine 250 mcg PO DAILY linaclotide (Linzess) 290 mcg PO QAM 30 days rabeprazole (AcipHex) 20 mg PO BID 30 days tramadol 50 mg PO TID PRN valsartan 160 mg PO BID Do you need a note to return to daycare/school/sports/work: No HPI sleep apnea HPI Details This 42 years old female with morbid obesity, has history of obstructive sleep apnea. She has been non compliant to the use of CPAP. This has been due to her placement in a rehab facility for several weeks after the fall and broken tibia. Now she is back home. Cannot use her previous CPAP because of lack of supplies. Supplies were. Because of her noncompliance. She remains symptomatic and wakes several times during the night with gasping. She remains tired and sleepy during the daytime. Has not been able to lose weight because of her placement in the rehab facility. Patient is interested in having a full polysomnogram study and then go back on CPAP. This patient is also known case of bronchial asthma. She is on Budesonide-albuterol 160-4.52 puffs b.i.d. and uses albuterol p.r.n. Claims that her symptoms are not fully controlled. She has frequent cough and some wheezing at nighttime. Also has mild intermittent nasal congestion controlled with Flonase. [facility] Medical History (Updated 05/20/23 @ 17:02 by Yannick Gomez MD) Non-compliance with treatment Asthma Restrictive lung disease secondary to obesity Sleep apnea Arthritis Anxiety Asthma HTN (hypertension) Fibromyalgia Bipolar 1 disorder Endometriosis Borderline personality disorder Epigastric pain GERD (gastroesophageal reflux disease) Chronic constipation Surgical History Hx of hemorrhoidectomy History of tonsillectomy History of myringotomy Social History Alcohol intake: unknown Patient Tobacco Use Status: Tobacco use Unknown Review of Systems Const All systems reviewed & are unremarkable except as noted in HPI and below Eyes Reports no additional complaints ENT Reports nasal congestion (off and on ), Reports nasal discharge and Reports nasal obstruction Card Denies chest pain, Denies irregular heart rhythm and Denies leg edema Resp Reports as per HPI GI Reports no additional complaints Reports no additional complaints Musc Reports no additional complaints Skin/Breast Reports system reviewed and no additional complaints, except as documented Neuro Reports no additional complaints Psych Reports no additional complaints Endo Reports no additional complaints Ze/Lymph Reports no additional complaints Aller/Immun Reports no additional complaints Physical Exam Vital Signs: Last Vital Signs Pulse 116 H 05/20/23 10:10 BP 122/68 05/20/23 10:10 Pulse Ox 97 05/20/23 10:10 Oxygen Delivery Method Room Air 05/20/23 10:10 BMI result Body Mass Index 52.7 Const Other: This patient is morbidly obese, Does not seem to be in distress. She has a very large and round face , neck is quite obese and short. Oropharynx is narrow and crowded. General: healthy appearing, comfortable, no acute distress, alert and awake Orientation/consciousness: patient oriented x3 HEENT Head: Yes normal to inspection General nose exam: No nasal polyps present and No nasal discharge present Face and sinus: Yes sinuses nontender Mouth: oropharynx normal Throat: Yes posterior oropharynx normal Eyes General: appearance normal, both eyes and all related structures Neck Other: Very obese and short Neck: Yes normal visual inspection, Yes no lymphadenopathy, Yes trachea midline and Yes no JVD Thyroid: Thyroid normal Chest Chest palpation & inspection: normal inspection of the chest, normal palpation of entire chest wall and no tenderness Resp Other: Percussion note is not perceptible due to extreme obesity. Breath sounds are distant, especially over the basilar areas. No wheezes or crepitations are heard Cardio Palpation: normal PMI Rate: regular rate Rhythm: regular rhythm Heart sounds: Gallop heart sound present and Murmur heart sound present Peripheral pulses: Peripheral pulses 2+ throughout GI Palpation (GI): Soft to palpation, Tenderness to palpation present (GI), No hepatosplenomegaly present and Palpable mass present Auscultation: normal bowel sounds Back/Spine/Pelvis Other: Could not be examined Thoracic/Lumbar Spine: thoracic and lumbar spine normal to inspection Skin General skin exam: no rashes or lesions noted Neuro General: patient oriented x3 and no focal motor deficits Cranial nerves: Yes CN's II-XII intact bilaterally Extrem Other: Right leg is in a fiberglass boot. Left leg is very bulky. But no pitting edema General: Yes normal to inspection, Yes no clubbing, cyanosis or edema and Yes no calf tenderness Psych Appearance: grossly normal and well kempt Speech and movement: Normal speech and movement present Assessment & Plan Assessment & Plan (1) Morbid obesity: Comment: This patient is obviously morbidly obese. She would need a long-term weight reduction program, after she graduates from the rehab program. Code(s): E66.01 - Morbid (severe) obesity due to excess calories (2) RA (obstructive sleep apnea): Comment: This patient has moderately severe obstructive sleep apnea as was diagnosed by sleep study in 2019 She did have CPAP device at home with pressure setting of 6-20 cm. She claims that she has nasal pillows or nasal mask. Anyway she has been totally non compliant. When I explained to her that she may lose her machine because of non usage, she states that she will try to use. Even after discharge from the rehab, she is not using her CPAP. Her claim is that she could not use the CPAP because she is not getting supplies. ACCORDING TO , DME SUPPLIER , THE ONLY WAY SHE CAN KEEP HER CPAP IS BY DOING A POLYSOMNOGRAM STUDY IN THE SLEEP LAB AND CONFIRMING THAT SHE HAS SLEEP APNEA. SO I A.M. REQUESTING A SLEEP STUDY IN THE SLEEP LAB, SHE MAY ALSO HAVE CPAP TITRATION TO DETERMINE THE OPTIMAL PRESSURE, AND ALSO TO MAKE SURE THAT HYPOXEMIA IS CORRECTED. Code(s): G47.33 - Obstructive sleep apnea (adult) (pediatric) (3) Bipolar 1 disorder: Comment: PATIENT IS A CASE OF BIPOLAR DISORDER AND THIS MAKES HER PRONE TO BEING NONCOMPLIANT. Code(s): F31.9 - Bipolar disorder, unspecified (4) Asthma: Comment: She gives history of bronchial asthma throughout her adult life. It seems that she has used the short-acting BD inhaler off and own. It presents mainly in the form of bouts of cough and some wheezing. I recommend that she can start using ProAir with a spacing device, 2 puffs Q 4-6 hours p.r.n. if she has any bouts of wheezing. SHE DOES NEED AN UP TO DATE PULMONARY FUNCTION TESTING TO DETERMINE THE EXACT DIAGNOSIS, SO THAT HER MEDICAL REGIMEN CAN BE UPGRADED. Code(s): J45.909 - Unspecified asthma, uncomplicated (5) Restrictive lung disease secondary to obesity: Comment: Because of morbid obesity this patient does have significant restrictive lung disorder, as expected. She would benefit from deep breathing exercises. I suggest that she should start using incentive spirometry device and do deep breathing exercises every 2 hours while awake. Code(s): J98.4 - Other disorders of lung; E66.9 - Obesity, unspecified Orders: Orders PFT pulmonary function test Today E66.9 - Obesity, unspecified, J45.909 - Unspecified asthma, uncomplicated, J98.4 - Other disorders of lung RT PSG in-lab sleep study Today E66.01 - Morbid (severe) obesity due to excess calories, G47.33 - Obstructive sleep apnea (adult) (pediatric), Z91.199 - Patient's noncompliance with other medical treatment and regimen due to unspecified reason Coding Level of Care Code Est Pt Level 4 (30055) Diagnoses Morbid obesity E66.01 RA (obstructive sleep apnea) G47.33 Bipolar 1 disorder F31.9 Asthma J45.909 Restrictive lung disease secondary to obesity J98.4; E66.9
== END 2023-05-20 10:37 | disposition home or self-care (01) ==
PROVIDERS: PCP Internal Medicine; Visit Provider Internal Medicine
DX: E66.01 Morbid (severe) obesity due to excess calories (principal); G47.33 Obstructive sleep apnea (adult) (pediatric); F31.9 Bipolar disorder, unspecified; J45.909 Unspecified asthma, uncomplicated; J98.4 Other disorders of lung; E66.9 Obesity, unspecified
CPT/HCPCS: 99214

== ENCOUNTER → 2023-05-20 10:04 | Outpatient (BNVA) | payer MEDICARE, MEDICAID, SELFPAY | PROVIDERS: PCP Internal Medicine; Visit Provider Internal Medicine | DX: G47.33 Obstructive sleep apnea (adult) (pediatric) (principal); F31.9 Bipolar disorder, unspecified; J45.909 Unspecified asthma, uncomplicated; J98.4 Other disorders of lung; E66.01 Morbid (severe) obesity due to excess calories; Z68.43 Body mass index [BMI] 50.0-59.9, adult | CPT/HCPCS: 99212 ==

== ENCOUNTER 2023-07-03 14:08 | Outpatient (REF) | payer MEDICARE, MEDICAID, SELFPAY ==
--- NOTE | 2023-07-03 14:51 | PFT_ITS ---
Forced vital capacity 83%, FEV1 82%, FEV1/FVC ratio is 81. [id number] 86% and MVV 89%. Post bronchodilator therapy, there is no change. Total lung capacity 78%. Residual volume 80%. Diffusion capacity 110%. CONCLUSION: There is a very mild or borderline degree of restrictive disorder. No obstructive airway disorder. No response to bronchodilator therapy. Clinical correlation recommended. MD TAMIKO Osman/MODL / [id number]
== END 2023-07-03 14:09 | disposition home or self-care (01) ==
LOC: HO.RESP 14:08
PROVIDERS: PCP Internal Medicine; Visit Provider Internal Medicine
DX: J45.909 Unspecified asthma, uncomplicated (principal); J98.4 Other disorders of lung; E66.9 Obesity, unspecified
CPT/HCPCS: 94010; 94727; 94729

== ENCOUNTER → 2023-07-03 14:51 | Outpatient (BNV) | payer MEDICARE, MEDICAID, SELFPAY | PROVIDERS: PCP Internal Medicine; Visit Provider Internal Medicine | DX: J45.909 Unspecified asthma, uncomplicated (principal); J98.4 Other disorders of lung | CPT/HCPCS: 94060; 94727; 94729 ==

== ENCOUNTER 2023-07-27 11:07 | Outpatient (AMB) | payer MEDICARE, MEDICAID, SELFPAY ==
--- NOTE | 2023-07-27 11:19 | MHC.OFFVIS ---
Intake Vital Signs 07/27/23 11:20 Height 5 ft 4 in Weight 307 lb 8.717 oz BMI 52.8 BP 132/74 Blood Pressure Location Lt radial Position Sitting Pulse 117 H Pulse Source Pulse Oximeter Pulse Oximetry (%) 97 Oxygen Delivery Method Room Air Intake Visit Reasons: sleep apnea Intake Note: pt is here for follow up and states she had pft and feels like she cannot get a deep breath in, and sleep study is scheduled for 07/29 Radiological Technician Required: No Allergies bee pollen [BEE STINGS] Allergy (Severe, Verified 07/27/23 11:29) ANAPHYLAXIS acetaminophen [From TYLENOL] Allergy (Intermediate, Verified 07/27/23 11:29) HIVES divalproex sodium [Depakote] Allergy (Unknown, Verified 07/27/23 11:29) unsure Medication List - Last Reconciled 07/27/23 by Yannick Gomez MD albuterol sulfate 90 mcg/actuation 0 mcg inhalation alprazolam 0.5 - 1 mg PO DAILY blood sugar diagnostic (FreeStyle Lite Strips) As directed budesonide-formoterol 160-4.5 mcg/actuation (Symbicort) 2 puffs inhalation BID carvedilol 25 mg PO BID cetirizine 10 mg PO DAILY chlorthalidone 25 mg PO DAILY cyclobenzaprine 10 mg PO TID famotidine 20 mg PO BEDTIME fluticasone propionate 50 mcg/actuation sprays intranasal hydrocortisone 2.5% (Proctosol HC) 1 appl [place] BID 30 days ibuprofen 800 mg PO TID levothyroxine 250 mcg PO DAILY linaclotide (Linzess) 290 mcg PO QAM 30 days rabeprazole (AcipHex) 20 mg PO BID 30 days tramadol 50 mg PO TID PRN valsartan 160 mg PO BID Do you need a note to return to daycare/school/sports/work: No HPI sleep apnea HPI Details 43 YEARS OLD FEMALE, MORBIDLY OBESE, HISTORY OF OBSTRUCTIVE SLEEP APNEA BUT COULD NOT USE THE CPAP. NOW SHE IS SCHEDULED TO HAVE POLYSOMNOGRAM STUDY IN THE SLEEP LAB, HOPEFULLY WITH CPAP TITRATION. SHE HAS LOT OF ANXIETY FIBROMYALGIA AND MULTIPLE COMORBIDITIES. SHE HAS BEEN TREATED WITH SYMBICORT 160-4.52 PUFFS B.I.D. FOR PRESUMED DIAGNOSIS OF ASTHMA/COPD. SHE QUIT SMOKING IN 2018. SHE HAS LOT OF ANXIETY, COMPLAINS THAT SHE CANNOT TAKE DEEPER BREATHS , AND THAT IS GETS SHORT OF BREATH WITH MINIMAL EFFORTS. COUNTS INCLUDE 234 BEDS AT THE [facility] Medical History Non-compliance with treatment Asthma Restrictive lung disease secondary to obesity Sleep apnea Arthritis Anxiety Asthma HTN (hypertension) Fibromyalgia Bipolar 1 disorder Endometriosis Borderline personality disorder Epigastric pain GERD (gastroesophageal reflux disease) Chronic constipation Surgical History Hx of hemorrhoidectomy History of tonsillectomy History of myringotomy Social History Alcohol intake: unknown Comment: cramping improved Patient Tobacco Use Status: Former Tobacco user Years Smoked: 2018 Review of Systems Const All systems reviewed & are unremarkable except as noted in HPI and below Eyes Reports no additional complaints ENT Reports nasal congestion (off and on ), Reports nasal discharge and Reports nasal obstruction Card Denies chest pain, Denies irregular heart rhythm and Denies leg edema Resp Reports as per HPI GI Reports no additional complaints Reports no additional complaints Musc Reports no additional complaints Skin/Breast Reports system reviewed and no additional complaints, except as documented Neuro Reports no additional complaints Psych Reports no additional complaints Endo Reports no additional complaints Ze/Lymph Reports no additional complaints Aller/Immun Reports no additional complaints Physical Exam Vital Signs: Last Vital Signs Pulse 117 H 07/27/23 11:20 BP 132/74 07/27/23 11:20 Pulse Ox 97 07/27/23 11:20 Oxygen Delivery Method Room Air 07/27/23 11:20 BMI result Body Mass Index 52.8 Const Other: This patient is morbidly obese, Does not seem to be in distress. She has a very large and round face , neck is quite obese and short. Oropharynx is narrow and crowded. General: healthy appearing, comfortable, no acute distress, alert and awake Orientation/consciousness: patient oriented x3 HEENT Head: Yes normal to inspection General nose exam: No nasal polyps present and No nasal discharge present Face and sinus: Yes sinuses nontender Mouth: oropharynx normal Throat: Yes posterior oropharynx normal Eyes General: appearance normal, both eyes and all related structures Neck Other: Very obese and short Neck: Yes normal visual inspection, Yes no lymphadenopathy, Yes trachea midline and Yes no JVD Thyroid: Thyroid normal Chest Chest palpation & inspection: normal inspection of the chest, normal palpation of entire chest wall and no tenderness Resp Other: Percussion note is not perceptible due to extreme obesity. Breath sounds are distant, especially over the basilar areas. No wheezes or crepitations are heard Cardio Palpation: normal PMI Rate: regular rate Rhythm: regular rhythm Heart sounds: Gallop heart sound present and Murmur heart sound present Peripheral pulses: Peripheral pulses 2+ throughout GI Palpation (GI): Soft to palpation, Tenderness to palpation present (GI), No hepatosplenomegaly present and Palpable mass present Auscultation: normal bowel sounds Back/Spine/Pelvis Other: Could not be examined Thoracic/Lumbar Spine: thoracic and lumbar spine normal to inspection Skin General skin exam: no rashes or lesions noted Neuro General: patient oriented x3 and no focal motor deficits Cranial nerves: Yes CN's II-XII intact bilaterally Extrem Other: Right leg is in a fiberglass boot. Left leg is very bulky. But no pitting edema General: Yes normal to inspection, Yes no clubbing, cyanosis or edema and Yes no calf tenderness Psych Appearance: grossly normal and well kempt Speech and movement: Normal speech and movement present Results Reviewed Results Reviewed: PULMONARY FUNCTION TEST ON 07/03/2023. SPIROMETRY IS NORMAL AND THERE WAS NO SIGNIFICANT RESPONSE TO BD THERAPY TLC 78,C/W MILD RESTRICTIVE LUNG DISORDER. DLCO WAS NORMAL. Assessment & Plan Assessment & Plan (1) Morbid obesity: Comment: This patient is obviously morbidly obese. She would need a long-term weight reduction program, after she graduates from the rehab program. Code(s): E66.01 - Morbid (severe) obesity due to excess calories Plan: DISCUSSED ABOUT WEIGHT REDUCTION. SHE SHOULD WORK WITH HER PRIMARY CARE PHYSICIAN/ WEIGHT MANAGEMENT PROGRAM. (2) RA (obstructive sleep apnea): Comment: This patient has moderately severe obstructive sleep apnea as was diagnosed by sleep study in 2019 She did have CPAP device at home with pressure setting of 6-20 cm. She claims that she has nasal pillows or nasal mask. Anyway she has been totally non compliant. When I explained to her that she may lose her machine because of non usage, she states that she will try to use. Even after discharge from the rehab, she is not using her CPAP. Her claim is that she could not use the CPAP because she is not getting supplies. ACCORDING TO , DME SUPPLIER , THE ONLY WAY SHE CAN KEEP HER CPAP IS BY DOING A POLYSOMNOGRAM STUDY IN THE SLEEP LAB AND CONFIRMING THAT SHE HAS SLEEP APNEA. SO I A.M. REQUESTING A SLEEP STUDY IN THE SLEEP LAB, SHE MAY ALSO HAVE CPAP TITRATION TO DETERMINE THE OPTIMAL PRESSURE, AND ALSO TO MAKE SURE THAT HYPOXEMIA IS CORRECTED. Code(s): G47.33 - Obstructive sleep apnea (adult) (pediatric) Plan: POLYSOMNOGRAM STUDY IN THE SLEEP LAB HAS BEEN REVIEWED REQUESTED, BUT NOT DONE YET. NOW SCHEDULED FOR PATIENT CLAIMS THAT SHE MAY NOT SLEEP DUE TO HER ANXIETY AND BEING IN A DIFFERENT ENVIRONMENT. I HAVE PRESCRIBED ZOLPIDEM 10 MG X2 TABS TO TAKE IF NEEDED ON THE NIGHT OF SLEEP STUDY. TAKE 1 TABLET HALF AN HOUR BEFORE THE START OF SLEEP STUDY AND IF SHE DOES NOT FALLL ASLEEP IN ABOUT HALF AN HOUR THEN MAY REPEAT THE 2ND HAPPENED. (3) Bipolar 1 disorder: Comment: PATIENT IS A CASE OF BIPOLAR DISORDER AND THIS MAKES HER PRONE TO BEING NONCOMPLIANT. Code(s): F31.9 - Bipolar disorder, unspecified Plan: AWAITING THE POLYSOMNOGRAM STUDY. (4) Restrictive lung disease secondary to obesity: Comment: Because of morbid obesity she does have mild restrictive disorder. She would benefit from deep breathing exercises. I suggest that she should start using incentive spirometry device and do deep breathing exercises every 2 hours while awake. Code(s): J98.4 - Other disorders of lung; E66.9 - Obesity, unspecified Plan: I explained the findings of pulmonary function test. Advised her to do deep breathing exercises every 2 hours regularly, while awake (5) Asthma: Comment: She gives history of bronchial asthma throughout her adult life. It seems that she has used the short-acting BD inhaler off and on. It presents mainly in the form of bouts of cough and some wheezing. I recommend that she can start using ProAir with a spacing device, 2 puffs Q 4-6 hours p.r.n. . Code(s): J45.909 - Unspecified asthma, uncomplicated Plan: She does not need to use Symbicort and I advised her to wean her off this slowly over the next few weeks Coding Level of Care Code Est Pt Level 4 (58855) Diagnoses Morbid obesity E66.01 RA (obstructive sleep apnea) G47.33 Bipolar 1 disorder F31.9 Restrictive lung disease secondary to obesity J98.4; E66.9 Asthma J45.909
[2023-07-27 11:20] VITALS: BP 132/74; PULSE 117; O2SAT 97; BMI 52.8
== END 2023-07-27 11:46 | disposition home or self-care (01) ==
PROVIDERS: PCP Internal Medicine; Visit Provider Internal Medicine
DX: E66.01 Morbid (severe) obesity due to excess calories (principal); G47.33 Obstructive sleep apnea (adult) (pediatric); F31.9 Bipolar disorder, unspecified; J98.4 Other disorders of lung; E66.9 Obesity, unspecified; J45.909 Unspecified asthma, uncomplicated
CPT/HCPCS: 99214

== ENCOUNTER → 2023-07-27 11:07 | Outpatient (BNVA) | payer MEDICARE, MEDICAID, SELFPAY | PROVIDERS: PCP Internal Medicine; Visit Provider Internal Medicine | DX: G47.33 Obstructive sleep apnea (adult) (pediatric) (principal); J45.909 Unspecified asthma, uncomplicated; J98.4 Other disorders of lung; F31.9 Bipolar disorder, unspecified; E66.9 Obesity, unspecified; E66.01 Morbid (severe) obesity due to excess calories; Z68.43 Body mass index [BMI] 50.0-59.9, adult | CPT/HCPCS: 99212 ==

== ENCOUNTER 2023-12-18 12:49 | Outpatient (AMB) | payer OTHER, SELFPAY ==
--- NOTE | 2023-12-18 12:56 | MHC.OFFVIS ---
Vital Signs 12/18/23 13:20 Height 5 ft 4 in Weight 298 lb 2 oz BMI 51.2 BP 160/100 H Blood Pressure Location Lt radial Position Sitting Respiration 18 Pulse 80 Pulse Source Pulse Oximeter Pulse Oximetry (%) 97 Oxygen Delivery Method Room Air Intake Visit Reasons: polyneuropathy Allergies bee pollen [BEE STINGS] Allergy (Severe, Verified 12/18/23 13:21) ANAPHYLAXIS acetaminophen [From TYLENOL] Allergy (Intermediate, Verified 12/18/23 13:21) HIVES divalproex sodium [Depakote] Allergy (Unknown, Verified 12/18/23 13:21) unsure HPI Comments Details: Sandy is a very pleasant 43-year-old female who presents the office today for evaluation management of her chronic all-over pain. Patient was advised that we do not have a chronic opioid program, that we will not be prescribing opioids. She responded asking ?well then why am I here?. Offered to cancel the appointment if patient did not want to proceed but she stated I am here I will finish the visit. Clarified 2 the patient will be offer here, targeted interventional management. She stated that she has undergone cortisone injections in the past and will never do that again. Requested patient to pinpoint an area that she would like to target during today's visit, she stated she has pain ?all over? but for the last 3 days she has been suffering with severe lower back and suprapubic abdominal pain with vaginal bleeding and passing clots. She attributes this to her endometriosis. She was under the care of footwear machinery instructor but states that she has been fired from their office. She has awaiting a new rolling machine operator automatic to assume care. Patient states her primary care provider used to provide her oxycodone 9 tablets every 3 months. This has been discontinued and now she is suffering. She does not know why her PCP stopped prescribing this medication. Pain today is rated as a 10/10, constant. In terms of muscle damage condition is described as aching, spasming, stabbing, sharp, tingling, shooting, tiring, exhausting, shocking, cramping, squeezing, numb and throbbing. Pain is negatively impacting patient's enjoyment of life, general activity, mood, normal work, recreational activities, relationships with people, sleep and walking [facility] Medical History Non-compliance with treatment Asthma Restrictive lung disease secondary to obesity Sleep apnea Arthritis Anxiety Asthma HTN (hypertension) Fibromyalgia Bipolar 1 disorder Endometriosis Borderline personality disorder Epigastric pain GERD (gastroesophageal reflux disease) Chronic constipation Surgical History Hx of hemorrhoidectomy History of tonsillectomy History of myringotomy Social History Alcohol intake: unknown Comment: cramping improved Patient Tobacco Use Status: Former Tobacco user Years Smoked: 2018 Review of Systems Const All systems reviewed & are unremarkable except as noted in HPI and below Physical Exam Vital Signs: Last Vital Signs Pulse 80 12/18/23 13:20 Resp 18 12/18/23 13:20 BP 160/100 H 12/18/23 13:20 Pulse Ox 97 12/18/23 13:20 Oxygen Delivery Method Room Air 12/18/23 13:20 BMI result Body Mass Index 51.2 General: awake, alert, oriented. Answers questions appropriately. Fully engaged in examination. Crying during exam. Skin: warm, dry, intact HEENT: Normocephalic. Hearing intact. Cardiac: External chest normal in appearance. Respiratory: No cough, audible wheezing or stridor. Abdomen: without gross distension. MS: No obvious swelling or deformities. Able to stand on bilateral tiptoes and bilateral heels.? Able to transition from sit to stand unassisted. Ambulates with bilaterally normal heel strike and toe off Neurological: Oriented to person, place, time and situation. Thought process intact. No gait abnormalities appreciated. Psychiatric: Appropriate mood and affect. Good judgment and insight. Assessment & Plan Assessment & Plan (1) Chronic pain syndrome: Code(s): G89.4 - Chronic pain syndrome Category: Medical Plan Patient presented to the office today for evaluation and management of her chronic pain syndrome. Her main complaint today and where she requested to focus was on her endometriosis pain and vaginal bleeding. Patient was advised that she should follow-up with her footwear machinery instructor; if she feels that this warrants emergent evaluation and management she should go to the emergency room. She was advised that we do not have a chronic opioid program at this time, she is inquiring about continuing on oxycodone. She was referred to primary care doctor to further discuss this. Discussed options for interventional management, patient adamantly refuses to proceed with any injections. All questions and concerns were answered, patient referred to the emergency room for evaluation of her 10/10 abdominal pain with vaginal bleeding. Follow-up in the office when she would like to further discuss interventional management options for targeted treatment. Coding Level of Care Code New Pt Level 4 (10895) Diagnoses Chronic pain syndrome G89.4
[2023-12-18 13:20] VITALS: BP 160/100; PULSE 80; RESP 18; O2SAT 97; BMI 51.2
== END 2023-12-18 13:25 | disposition home or self-care (01) ==
PROVIDERS: PCP Internal Medicine; Visit Provider Registered Nurse Emergency
DX: G89.4 Chronic pain syndrome (principal)
CPT/HCPCS: 99203

== ENCOUNTER → 2023-12-18 12:49 | Outpatient (BNVA) | payer OTHER, SELFPAY | PROVIDERS: PCP Internal Medicine; Visit Provider Registered Nurse Emergency | DX: G89.4 Chronic pain syndrome (principal) | CPT/HCPCS: 99202 ==

== ENCOUNTER 2024-05-12 09:54 | Outpatient (AMB) | payer OTHER, SELFPAY ==
[2024-05-12 10:03] VITALS: BP 135/68; PULSE 70; BMI 43.5
--- NOTE | 2024-05-12 10:03 | A.OFFVIS_ITS ---
Vital Signs 05/12/24 10:03 Height 5 ft 4 in Weight 253 lb 8.505 oz BMI 43.5 BP 135/68 Blood Pressure Location Lt brachial Position Sitting Pulse 70 Intake Visit Reasons: Follow up constipation/pt request Intake Note: Patient in office today in follow up of constipation. CC: Patient states yudith she has been very constipated. Per patient she has been taking the Viberzi but it has not been working for her. She also states that she feels very full even when she drinks a little bit of water. Packing Shed Supervisor Required: No Accompanied by: Self / Same As Patient Allergies bee pollen [BEE STINGS] Allergy (Severe, Verified 12/18/23 13:21) ANAPHYLAXIS acetaminophen [From TYLENOL] Allergy (Intermediate, Verified 12/18/23 13:21) HIVES divalproex sodium [Depakote] Allergy (Unknown, Verified 12/18/23 13:21) unsure HPI HPI Follow up constipation/pt request: Details: Assessment & Plan (1) GERD (gastroesophageal reflux disease): Code(s): K21.9 - Gastro-esophageal reflux disease without esophagitis Plan: They did not do the EGD r/t RA and breathing-this is probably related to her morbid obesity. She seems very fearful about this saying that now she is afraid to have a spinal that Neurology is planning to address her migraines. I try to educate her that this is more about how long we want to keep her under sedation safely and it does not mean she cannot undergo another procedure if she needs it. She continues to have bad GERD, we will stop lansoprazole and try to get aciphex and continues qhs famotidine. Because of the above information and the patient's general psychiatric status that seems to include some severe anxiety were going to hold off on reschedule an upper endoscopy and see if we can address her situation medically. The procedure needs to be repeated in 5 years r/t the TA. The colonoscopy was well tolerated; she has obstructive sleep apnea morbid obesity that prevented performing an EGD in the same appointment. The results were explained and the patient is agreeable to the follow-up interval as stated. The bowel pattern has returned to normal. Education was provided to tell any 1st degree relatives about their findings to be sure that they are screened by age 45. Educated that they will be put on a recall list when it is time for their repeat scope but should they move out of state or away from the hospital they will need to remember along with their primary to repeat the procedure in a timely fashion to avoid any adverse complications. She is concerned re:wt gain and wants Ozempic - told her she would need to speak with wt mgmt. In general she seems quite manic today standing pacing and rapid firing questions and statements at me about many of her general medical conditions most of which are not relevant to her GI treatment. ROV 8 weeks to evaluate the changing PPI. (2) Chronic constipation: Code(s): K59.09 - Other constipation (3) Borderline personality disorder: Code(s): F60.3 - Borderline personality disorder (4) Tubular adenoma of colon: Comment: 2022=1 TA repeat in 5 years Code(s): D12.6 - Benign neoplasm of colon, unspecified (5) Bipolar 1 disorder: Code(s): F31.9 - Bipolar disorder, unspecified (6) RA (obstructive sleep apnea): Code(s): G47.33 - Obstructive sleep apnea (adult) (pediatric) (7) Morbid obesity: Code(s): E66.01 - Morbid (severe) obesity due to excess calories (8) Epigastric pain: Code(s): R10.13 - Epigastric pain Medications: New rabeprazole (AcipHex) 20 mg PO BID 30 days 60 tabs 6RF K21.9 - Gastro- esophageal reflux disease without esophagitis Refilled famotidine take one tablet on empty stomach at bedtime 20 mg PO BEDTIME 30 tabs 6RF linaclotide (Linzess) 290 mcg PO QAM 30 days 30 caps 6RF K59.09 - Other constipation Discontinued lansoprazole take first thing in AM a half hour before eating on empty stomach Discontinued Reason: Doctor's Order 30 mg PO DAILY 30 caps 6RF GERD CORRESPONDENCE On 05/11/24 @ 07:30 Krystal Sinha Wrote To Montero yes but it may take 30 days. Unfortunately once PA is submitted, denied and goes into the appeals process it can take up to 30 days. On 05/10/24 @ 15:12 WinstonNovember Wrote To Krystal Sinha SO....are we trying to get LInzess 290 approved now? On 05/03/24 @ 12:15 Gerber Little Wrote To WinstonNovember Spoke to pt. Pt has not had a bowel movement for the last 4 days. Pt reports that, when she was having bowel movements, they were only small and hard pieces. Pt has been making multiple lifestyle changes that have helped with BMs in the past and they have not helped to this point. Advised pt, if they have any older records that indicate trial and failure of trulance or amitiza, to have them sent to the office so we can use this in the appeal process. Pt believes she may have tried one or both of the medications previously. On 05/03/24 @ 10:59 Ibeth Montero Wrote To WinstonNovember (2) OKAY, TRULANCE SENT PLEASE CALL patient and advised her that this is an in surance driven situation and she needs to try and fail it. On 05/02/24 @ 16:07 Gerber Little Wrote To Winston PA denied despite being listed as continuation of therapy. PA denied because trulance and / or amitiza has not been tried and failed. Please advise. On 05/02/24 @ 14:49 Gerber Little Wrote To Krystal Sinha PA requested, submitted via [facility]. TODAY'S VISIT She has been working hard to lose 50 lbs. She goes to swim therapy and is now on Ozempic. She is NOT MOVING HER BOWELS AT ALL!! 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 THis i causing her a great deal of anxiety, and when she tried to self advocate they sent psych to her doors. Her [facility] nurse is also not advocating for her so this is frustrating. The insurance is giving our office a hard time and they are saying they will take 30 days to process our appeal. We are pushing hard for her and this is very harmful to her entire therapeutic situation putting her at risk for SBO and/or mental health setbacks. FOr now she will continue Trulance and we will add both bisacodyl tablets qhs and bisacodyl supps. I will get a abd xr to eval stool burden. ROV 2 weeks. PFSH Medical History Non-compliance with treatment Asthma Restrictive lung disease secondary to obesity Sleep apnea Arthritis Anxiety Asthma HTN (hypertension) Fibromyalgia Bipolar 1 disorder Endometriosis Borderline personality disorder Epigastric pain GERD (gastroesophageal reflux disease) Chronic constipation Surgical History Hx of hemorrhoidectomy History of tonsillectomy History of myringotomy Social History Alcohol intake: unknown Comment: cramping improved Patient Tobacco Use Status: Former Tobacco user Years Smoked: 2018 Review of Systems Const Denies fatigue, Denies fever(s), Denies night sweats, Denies poor appetite and Reports weight loss Eyes Details: glasses Reports requires corrective lenses ENT Reports Normal hearing present, Denies dental pain, Denies dysphagia, Denies hearing loss, Denies mouth pain, Denies odynophagia, Denies throat swelling, Denies tongue swelling and Reports other (Dentition adequate) Card Reports no additional complaints Resp Reports no additional complaints GI Details: Reports abdominal pain, Denies melena, Reports bloating, Denies hematochezia, Reports constipation, Denies GI cramping, Denies dysphagia, Denies excessive flatus, Denies early satiety, Reports heartburn, Denies diarrhea, Reports nausea, Denies odynophagia, Denies vomiting and Denies hematemesis Skin/Breast Denies pruritus, Denies lesions, Denies rash and Denies jaundice Neuro Reports Normal hearing present and Denies Abnormal speech present Psych Reports anxiety, Reports irritability and Reports panic attacks Endo Denies fatigue Aller/Immun Denies throat swelling and Denies tongue swelling Physical Exam Vital Signs: Last Vital Signs Pulse 70 05/12/24 10:03 BP 135/68 05/12/24 10:03 BMI result Body Mass Index 43.5 Const General: cooperative, no acute distress, well developed and well groomed Nutritional Appearance: well nourished and obese Orientation/consciousness: oriented to person, oriented to place and oriented to time Limitations: No language barrier HEENT Head: Yes normocephalic and Yes atraumatic Eyes General: appearance normal, both eyes and all related structures Pupils: Equal, round and reactive pupils present Neck Neck: Yes normal visual inspection and Yes no lymphadenopathy Thyroid: Thyroid normal Resp Effort & Inspection: normal respiratory effort and able to speak in complete sentences Auscultation: clear to auscultation bilaterally Cardio Rate: regular rate Rhythm: regular rhythm Heart sounds: Normal, physiologic split S2 sound present Peripheral pulses: radial pulses present and posterior tibial pulses present GI Inspection: No distended, Yes Abdominal panniculus present and Yes obesity Palpation (GI): Soft to palpation, Tenderness to palpation present (GI) periumbilically, no guarding, not rigid and No hepatosplenomegaly present Percussion: Yes normal to percussion Auscultation: Hypoactive bowel sounds present Rectal Exam - Female: deferred Skin General skin exam: no rashes or lesions noted, turgor normal, skin not dry, no jaundice, No spider nevi and no striae Rashes: no rashes Nails: normal Neuro General: oriented to person, oriented to place and oriented to time Cranial nerves: Yes Equal, round and reactive pupils present and Yes Normal hear ing present Speech: No Abnormal speech present Extrem General: Yes normal to inspection, No clubbing, No cyanosis and No edema Psych Appearance: grossly normal and well kempt Mental Status: mental status grossly normal Speech and movement: Normal speech and movement present Affect: normal affect Attitude: cooperative Thought process: Normal thought process present and not confabulating Thought content: Normal thought content present Insight: Fair insight present (Psych) Judgement: Fair judgement present (Psych) Assessment & Plan Assessment & Plan (1) Chronic constipation: Code(s): K59.09 - Other constipation Category: Medical (2) GERD (gastroesophageal reflux disease): Code(s): K21.9 - Gastro-esophageal reflux disease without esophagitis Category: Medical Plan She has been working hard to lose 50 lbs. She goes to swim therapy and is now on Ozempic. She is NOT MOVING HER BOWELS AT ALL!! 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 This is causing her a great deal of anxiety, and when she tried to self advocate they sent psych to her doors. Her [facility] nurse is also not advocating for her so this is frustrating. The insurance is giving our office a hard time and they are saying they will take 30 days to process our appeal. We are pushing hard for her and this is very harmful to her entire therapeutic situation putting her at risk for SBO and/or mental health setbacks. FOr now she will continue Trulance and we will add both bisacodyl tablets qhs and bisacodyl supps. I will get a abd xr to eval stool burden. ROV 2 weeks. Medications: New bisacodyl (Dulcolax (bisacodyl)) 10 mg (2 x 5 mg) PO BEDTIME 60 tabs 3RF 30 days K59.09 - Other constipation bisacodyl 10 mg WA DAILY PRN 30 ea 3RF constipation K59.09 - Other constipation Coding Level of Care Code Est Pt Level 3 (68270) Diagnoses Chronic constipation K59.09 GERD (gastroesophageal reflux disease) K21.9
== END 2024-05-12 11:17 | disposition home or self-care (01) ==
PROVIDERS: PCP Internal Medicine; Visit Provider Nurse Practitioner
DX: K59.09 Other constipation (principal); K21.9 Gastro-esophageal reflux disease without esophagitis
CPT/HCPCS: 99213

== ENCOUNTER → 2024-05-12 09:54 | Outpatient (BNVA) | payer OTHER, SELFPAY | PROVIDERS: PCP Internal Medicine; Visit Provider Nurse Practitioner | DX: K59.09 Other constipation (principal); K21.9 Gastro-esophageal reflux disease without esophagitis; D12.6 Benign neoplasm of colon, unspecified; G47.33 Obstructive sleep apnea (adult) (pediatric); E66.01 Morbid (severe) obesity due to excess calories; R10.13 Epigastric pain | CPT/HCPCS: 99212 ==

== ENCOUNTER 2024-05-26 08:50 | Outpatient (REF) | payer OTHER, SELFPAY | END 2024-05-26 08:51 | disposition home or self-care (01) | LOC: HO.XRAY 08:50 | PROVIDERS: PCP Internal Medicine; Visit Provider Internal Medicine Gastroenterology | DX: Z13.89 Encounter for screening for other disorder (principal) ==

== ENCOUNTER 2024-06-25 10:48 | Outpatient (REF) | payer OTHER, SELFPAY ==
--- NOTE | ~2024-06-25 | XR_ITS ---
EXAMINATION: XR ABDOMEN KUB CLINICAL INDICATION: Constipation. COMPARISON: CT abdomen/pelvis dated 06/18/2021. TECHNIQUE: AP views of the abdomen. FINDINGS: Mild stool burden, similar when compared to the prior CT. Nonobstructive bowel gas pattern. No abnormal soft tissue calcification. No acute osseous abnormality. XR/XR KUB IMPRESSION: Mild stool burden, similar when compared to the prior CT. Electronically signed by: Raudel Garcia MD 07/19/2024 12:28 PM [facility]
== END 2024-06-25 10:49 | disposition home or self-care (01) ==
LOC: HO.XRAY 10:48
PROVIDERS: PCP Internal Medicine; Visit Provider Internal Medicine Gastroenterology
DX: K59.09 Other constipation (principal)
CPT/HCPCS: 74018

== ENCOUNTER 2024-07-19 09:53 | Emergency (ER) | payer OTHER, SELFPAY ==
--- NOTE | 2024-07-19 | ECG_ITS ---
Test Reason : VOMITING Blood Pressure : / mmHG Vent. Rate : 065 BPM Atrial Rate : 065 BPM P-R Int : 118 ms QRS Dur : 086 ms QT Int : 414 ms P-R-T Axes : -15 047 016 degrees QTc Int : 430 ms Normal sinus rhythm Normal ECG When compared with ECG of 30-JUN-2012 09:32, Nonspecific T wave abnormality now evident in Anterior leads Referred By: Generic ED Physician Electronically Signed By:KARLA DARNELL
--- NOTE | ~2024-07-19 | XR_ITS ---
EXAMINATION: XR ABDOMEN KUB CLINICAL INDICATION: Constipation. COMPARISON: Most recent abdominal radiograph dated 06/25/2024. TECHNIQUE: AP views of the abdomen. FINDINGS: Moderate stool burden, slightly more prominent when compared to the radiographs dated 06/25/2024. Nonobstructive bowel gas pattern. No abnormal soft tissue calcification. No acute osseous abnormality. XR/XR KUB IMPRESSION: Moderate stool burden, slightly more prominent when compared to the radiographs dated 06/25/2024. Electronically signed by: Raudel Garcia MD 07/19/2024 12:26 PM [facility]
[2024-07-19 10:15] VITALS: BP 154/91; PULSE 87; RESP 18; TEMP 37; O2SAT 100; BMI 41.7
--- OUTSIDE RECORDS SUMMARY | 2024-07-19 10:43 | XMS_ITS | Continuity of Care Document ---
Author Organization [facility] Address [address] [place] [id number]- Care Team Providers Care Theatrical Dresser Name Role Phone Nataliia CARLSONFernando Primary Care Physician Encounter [facility] Date(s): 04/05/24 - 05/05/[address] [address]- Attending Physician: Freida Phan Admitting Physician: Freida Phan Referring Physician: Freida Phan Referring Physician: Venice Solano Allergies, Adverse Reactions, Alerts Substance Reaction Severity Status morphine Active Tylenol 1 Hives Severe Active Bee Stings Active 1per patient, she is NOT supposed to have any APAP products Medications Margareth 0.35 mg oral tablet 1 tablet = 0.35 mg, By Mouth, Daily, take 2 tablets twice per day until bleeding stops, then 1 tablet twice per day, # 168 tablet, 2 Refills, Maintenance, 04/13/24 21:54:00 EDT, Tablet, [facility]/pharmacy #[id number], Partial fill upon patient request if the pres... Start Date: 04/13/24 Stop Date: 08/30/25 Status: Ordered carvedilol 25 mg oral tablet 25 mg, 1, tablet, By Mouth, 2 times a day, TAKE 1 TABLET BY MOUTH TWICE A DAY WITH FOOD Start Date: 07/04/19 Status: Ordered chlorthalidone 25 mg oral tablet 25 mg, 1, tablet, By Mouth, Daily, Refills 0, Maintenance, 07/04/19 12:29:25 EST Start Date: 07/04/19 Status: Ordered Freestyle Lite Glucometer Freestyle Lite Glucometer, See Instructions, # 1 each, Refills 0, Tot. Refills 0, Maintenance, Usedto test blood glucose 3x/day. E11.9, 01/29/24 18:57:00 EDT, Supply, 163, cm, 12/28/23 12:54:00 EDT,Height, 143, kg, 12/06/22 23:04:00 EDT, Dry Weight Start Date: 01/29/24 Status: Ordered gabapentin 100 mg oral capsule 100 mg, 1, capsule, By Mouth, 3 times a day, # 90 capsule, Refills 5, Maintenance, 07/04/21 13:02:00 EST, Partial fill upon patient request if the prescription is for a schedule II opioid drug. Start Date: 07/04/21 Status: Ordered ibuprofen 800 mg oral tablet 1, tablet, By Mouth, 3 times a day, # 90 tablet, Refills 1, Tot. Refills 0, Acute, 12/12/19 13:53:00 EDT, Route to Pharmacy Electronically, [id number], 164, cm, 11/03/19 13:54:00 EDT, Height, 122.4, kg, 07/03/19 23:45:00 EST, Dry Weight Start Date: 12/12/19 Status: Ordered levothyroxine 0.2 mg oral tablet 1 tablet, By Mouth, Daily, # 90 tablet, 0 Refills, Maintenance, 11/25/23 1:26:00 EDT, [id number], 163, cm, 07/10/23 13:16:00 EST, Height, 143, kg, 12/06/22 23:04:00 EDT, Dry Weight Start Date: 11/25/23 Status: Ordered losartan 50 mg oral tablet 50 mg, 1, tablet, By Mouth, Daily, # 30 tablet, Refills 0, Maintenance, 07/04/19 15:53:51 EST Start Date: 07/04/19 Status: Ordered MetFORMIN (Eqv-Glucophage XR) 500 mg oral tablet, extended release 1 tablet = 500 mg, By Mouth, Daily, Needs appt for further refills, # 30 tablet, 1 Refills, Maintenance, 10/19/23 13:05:00 EST, [facility]pharmacy #[id number], Partial fill upon patient request if the prescription is for a schedule II opioid drug., 163, cm, 07/10... Start Date: 10/19/23 Status: Ordered norethindrone 5 mg oral tablet 10 mg, 2, tablet, By Mouth, Daily, # 60 tablet, Refills 0, Tot. Refills 0, Maintenance, 07/21/22 13:01:00 EST, Route to Pharmacy Electronically, [facility]/pharmacy #[id number], Partial fill upon patient request if the prescription is for a schedule II opioid drug... Start Date: 07/21/22 Status: Ordered norethindrone 5 mg oral tablet 5 mg, 1, tablet, By Mouth, Daily, # 90 tablet, Refills 4, Tot. Refills 4, Maintenance, 04/05/24 17:02:00 EDT, [id number] Partial fill upon patient request if the prescription is for a schedule II opioid drug.... Start Date: 04/05/24 Status: Ordered Ozempic (1 mg dose) 4 mg/3 mL subcutaneous solution INJECT 1 MG BELOW THE SKIN WEEKLY Start Date: 02/23/24 Status: Ordered traMADol 50 mg oral tablet 1 tablet = 50 mg, By Mouth, Every 4 hours, PRN for pain, # 60 tablet, 0 Refills, Maintenance, 01/08/21 14:46:00 EDT, Tablet, Partial fill upon patient request if the prescription is for a schedule IIopioid drug. Start Date: 01/08/21 Status: Ordered valsartan 160 mg oral tablet TAKE 1 TABLET BY MOUTH TWICE A DAY Start Date: 02/23/24 Status: Ordered Xanax 2 mg oral tablet 1 tablet = 2 mg, By Mouth, 3 times a day, 0 Refills, Maintenance, 08/05/19 11:20:04 EST Start Date: 08/05/19 Status: Ordered Problem List Condition Confirmation Course Effective Dates Status H ealth Status Informant Asthma Confirmed Active Chronic bipolar disorder Confirmed Active Endometriosis Confirmed Active Hypertension Confirmed Active Migraines Confirmed Active Anxiety and depression Confirmed Active Myalgia Confirmed Active Panic attacks Confirmed Active Screen for STD (sexually transmitted disease) Confirmed Active PTSD (post-traumatic stress disorder) Confirmed Active Severe obesity Confirmed Active Hernia, umbilical Confirmed Active Social History Social History Type Response Tobacco Use: 4 or less cigar ettes(less than 1/4 pack)/day in last 30 days. Sex Patient Care team information Care Team Personnel Name: Swathi Steinberg RN Position: [facility] RN Member Role: Primary Care Nurse Name: Joanne Wright RN Position: [facility] SN RN Member Role: Primary Care Nurse Name: Fernando William DO Position: [facility] Physician (General Medicine) Member Role: PCP Address: Address: [address] [place] [id number] Name: Marie Jimenez RN, I Position: [facility] RN Member Role: Primary Care Nurse Care Team Related Persons Name: ROBERTO SUE Address: [address] [address] Name: KATIANA KNOX Address: [place] [address] Name: PREETI COONEY Name: BHARGAV OSBORNE Address: home [address] [place] [id number]
--- OUTSIDE RECORDS SUMMARY | 2024-07-19 10:43 | XMS_ITS | Continuity of Care Document ---
Author Organization [facility] ter Address [address] [place] [address]- Care Team Providers Care Pressure Vessel Inspector Name Role Phone Nataliia Fernando ACRLSON Primary Care Physician [place] [facility] [place] - 01/29/[address] [address] Attending Physician: Freida Phan Admitting Physician: AdmtrFreida Referring Physician: Admtr, ArHéctor Allergies, Adverse Reactions, Alerts Substance Reaction Severity Status morphine Active Tylenol 1 Hives Severe Active Bee Stings Active 1per patient, she is NOT supposed to have any APAP products Medications carvedilol 25 mg oral tablet 25 mg, [...] 12/12/19 13:53:00 EDT, Route to Pharmacy Electronically, [facility] STORE 80415, 164, cm, 11/03/19 13:54:00 EDT, Height, 122.4, kg, 07/03/19 23:45:00 EST, Dry Weight Start Date: 12/12/19 Status: Ordered levothyroxine 0.2 mg oral tablet 1 tablet, By Mouth, Daily, # 90 tablet, 0 Refills, Maintenance, 11/25/23 1:26:00 EDT, [facility] STORE 71103, 163, cm, 07/10/23 13:16:00 EST, Height, 143, [...] tablet, 1 Refills, Maintenance, 10/19/23 13:05:00 EST, [facility]/pharmacy #[id number], Partial fill upon patient request if the prescription is for a schedule II opioid drug., 163, cm, 07/10... Start Date: 10/19/23 Status: Ordered norethindrone 5 mg oral tablet 10 mg, 2, tablet, By Mouth, Daily, # 60 tablet, Refills 0, Tot. Refills 0, Maintenance, 07/21/22 13:01:00 EST, Route to Pharmacy Electronically, [facility]/pharmacy #[id number], Partial fill upon patient request if the prescription is for a schedule II opioid drug... Start Date: 07/21/22 Status: Ordered traMADol 50 mg oral tablet 1 tablet = 50 mg, By Mouth, Every 4 hours, PRN for pain, # 60 tablet, 0 Refills, Maintenance, 01/08/21 14:46:00 EDT, Tablet, Partial fill upon patient request if the prescription is for a schedule IIopioid drug. Start Date: 01/08/21 Status: Ordered Xanax 2 mg oral tablet 1 tablet = 2 mg, By Mouth, 3 times a day, 0 Refills, Maintenance, 08/05/19 11:20:04 EST Start Date: 08/05/19 Status: Ordered Problem List Condition Confirmation Course Effective Dates Status Health St atus Informant Asthma Confirmed Active Chronic bipolar disorder Confirmed Active Hypertension Confirmed Active Migraines Confirmed Active Anxiety and depression Confirmed Active Myalgia Confirmed Active Panic attacks Confirmed Active Screen for STD (sexually transmitted disease) Confirmed Active PTSD (post-traumatic stress disorder) Confirmed Active Severe obesity Confirmed Active Social History Social History Type Response Tobacco Use: 4 or less cigar ettes(less than 1/4 pack)/day in last 30 days. Sex Patient Care team information Care Team Personnel Name: Swathi Steinberg RN Position: [facility] RN Member Role: Primary Care Nurse Name: Joanne Wright RN Position: [facility] SN RN Member Role: Primary Care Nurse Name: Fernando William DO Position: [facility] Physician (General Medicine) Member Role: PCP Address: Address: [address] [place] [address]- Name: Marie Jimenez RN, I Position: [facility] RN Member Role: Primary Care Nurse Care Team Related Persons Name: ROBERTO SUE Address: [address] [address] Name: CORINE BERUMEN Address: [place], [place] Name: KATIANA KNOX Address: [place] [address] Name: PREETI COONEY Name: BHARGAV OSBORNE Address: home [address] [place] [address]
--- OUTSIDE RECORDS SUMMARY | 2024-07-19 10:43 | XMS_ITS | Continuity of Care Document ---
Author Organization [facility] Address [address] [place] [address]- Care Team Providers Care Making Department Preparer Name Role Phone Fernando William DO Primary Care Phys[id number]30/[facility] - 07/10/[address] [address] Attending Physician: Irina Mitchell MD Admitting Physician: Irina Mitchell MD Encounter Type: Pre-OutPatient One Time Allergies, Adverse Reactions, Alerts Substance Criticality Severity Reaction Reaction Severity Status morphine Active Tylenol 1 High criticality Severe Hives Act isela Bee Stings Active 1per patient, she is NOT supposed to have any APAP products Medications Margareth 0.35 mg oral tablet 1 tablet = 0.35 mg, By Mouth, Daily, take 2 tablets twice per day until bleeding stops, then 1 tablet twice per day, # 168 tablet, 2 Refills, Maintenance, 04/13/24 9:54:00 PM EDT, Tablet, [id number], Partial fill upon patient request if the prescription is for a schedule II opioid drug., 163, cm, 04/13/24 19:25:00 EDT, Height, 119.7, kg, 04/13/24 19:16:00 EDT, Dry Weight Start Date: 04/13/24 Stop Date: 08/30/25 Status: Ordered Quantity: 168.0 Unit: tablet Repeat number: 3 carvedilol 25 mg oral tablet 25 mg, 1, tablet, By Mouth, 2 times a day, TAKE 1 TABLET BY MOUTH TWICE A DAY WITH FOOD Start Date: 07/04/19 Status: Ordered Repeat number: 1 chlorthalidone 25 mg oral tablet 25 mg, 1, tablet, By Mouth, Daily, Refills 0, Maintenance, 07/04/19 12:29:25 PM EST Start Date: 07/04/19 Status: Ordered Repeat number: 1 Freestyle Lite Glucometer Freestyle Lite Glucometer, See Instructions, # 1 each, Refills 0, Tot. Refills 0, Maintenance, Usedto test blood glucose 3x/day. E11.9, 01/29/24 6:57:00 PM EDT, Supply, 163, cm, 12/28/23 12:54:00 EDT,Height, 143, kg, 12/06/22 23:04:00 EDT, Dry Weight Start Date: 01/29/24 Status: Ordered Quantity: 1.0 Unit: each Repeat number: 1 Indication: Type 2 diabetes mellitus without complications gabapentin 100 mg oral capsule 100 mg, 1, capsule, By Mouth, 3 times a day, # 90 capsule, Refills 5, Maintenance, 07/04/21 1:02:00PM EST, Partial fill upon patient request if the prescription is for a schedule II opioid drug. Start Date: 07/04/21 Status: Ordered Quantity: 90.0 Unit: capsule Repeat number: 1 ibuprofen 800 mg oral tablet 1, tablet, By Mouth, 3 times a day, # 90 tablet, Refills 1, Tot. Refills 0, Acute, 12/12/19 1:53:00 PM EDT, Route to Pharmacy Electronically, [facility] ST[facility] 65020, 164, cm, 11/03/19 13:54:00 EDT, Height, 122.4, kg, 07/03/19 23:45:00 EST, Dry Weight Start Date: 12/12/19 Status: Ordered Quantity: 90.0 Unit: tablet Repeat number: 1 levothyroxine 0.2 mg oral tablet 1 tablet, By Mouth, Daily, # 90 tablet, 0 Refills, Maintenance, 11/25/23 1:26:00 AM EDT, [facility] STORE 33206, 163, cm, 07/10/23 13:16:00 EST, Height, 143, kg, 12/06/22 23:04:00 EDT, Dry Weight Start Date: 11/25/23 Status: Ordered Quantity: 90.0 Unit: tablet Repeat number: 1 losartan 50 mg oral tablet 50 mg, 1, tablet, By Mouth, Daily, # 30 tablet, Refills 0, Maintenance, 07/04/19 3:53:51 PM EST Start Date: 07/04/19 Status: Ordered Quantity: 30.0 Unit: tablet Repeat number: 1 MetFORMIN (Eqv-Glucophage XR) 500 mg oral tablet, extended release 1 tablet = 500 mg, By Mouth, Daily, Needs appt for further refills, # 30 tablet, 1 Refills, Maintenance, 10/19/23 1:05:00 PM EST, [facility]/pharmacy #[id number], Partial fill upon patient request if the prescription is for a schedule II opioid drug., 163, cm, 07/10/23 13:16:00 EST, Height, 143, kg, 12/06/22 23:04:00 EDT, Dry Weight Start Date: 10/19/23 Status: Ordered Quantity: 30.0 Unit: tablet Repeat number: 2 norethindrone 5 mg oral tablet 10 mg, 2, tablet, By Mouth, Daily, # 60 tablet, Refills 0, Tot. Refills 0, Maintenance, 07/21/22 1:01:00 PM EST, Route to Pharmacy Electronically, [facility]/pharmacy #[id number], Partial fill upon patient request if the prescription is for a schedule II opioid drug., 163, cm, 07/21/22 9:05:00 EST, Height, 115.1, kg, 01/26/22 14:33:00 EDT, Dry Weight Start Date: 07/21/22 Status: Ordered Quantity: 60.0 Unit: tablet Repeat number: 1 norethindrone 5 mg oral tablet 5 mg, 1, tablet, By Mouth, Daily, # 90 tablet, Refills 4, Tot. Refills 4, Maintenance, 04/05/24 5:02:00 PM EDT, Route to Pharmacy Electronically, [facility]/pharmacy #[id number], Partial fill upon patient request if the prescription is for a schedule II opioid drug., 163, cm, 04/05/24 15:56:00 EDT, Height, 143, kg, 12/06/22 23:04:00 EDT, Dry Weight Start Date: 04/05/24 Status: Ordered Quantity: 90.0 Unit: tablet Repeat number: 5 Ozempic (1 mg dose) 4 mg/3 mL subcutaneous solution INJECT 1 MG BELOW THE SKIN WEEKLY Start Date: 02/23/24 Status: Ordered Repeat number: 1 traMADol 50 mg oral tablet 1 tablet = 50 mg, By Mouth, Every 4 hours, PRN for pain, # 60 tablet, 0 Refills, Maintenance, 01/08/21 2:46:00 PM EDT, Tablet, Partial fill upon patient request if the prescription is for a schedule II opioid drug. Start Date: 01/08/21 Status: Ordered Quantity: 60.0 Unit: tablet Repeat number: 1 valsartan 160 mg oral tablet TAKE 1 TABLET BY MOUTH TWICE A DAY Start Date: 02/23/24 Status: Ordered Repeat number: 1 Xanax 2 mg oral tablet 1 tablet = 2 mg, By Mouth, 3 times a day, 0 Refills, Maintenance, 08/05/19 11:20:04 AM EST Start Date: 08/05/19 Status: Ordered Repeat number: 1 Problem List Condition Confirmation Course Effective Dates [...] 1/4 pack)/day in last 30 days. Sex Sex Representation Female (finding) Patient Care team information Care Team Personnel Name: Swathi Steinberg RN Position: S RN Member Role: Primary Care Nurse Name: Joanne Wright RN Position: [facility] RN Member Role: Primary Care Nurse Name: Fernando William DO Position: S Physician (General Medicine) Member Role: PCP Address: [address] [place], [place] [address] Telecom: Name: Marie Jimenez RN, I Position: S RN Member Role: Primary Care Nurse Care Team Related Persons Name: ROBERTO SUE Name: KATIANA KNOX Name: PREETI COONEY Name: BHARGAV OSBORNE Insurance Providers Guarantor name: [facility] Information #: 1 Payer: [facility] [employer]/ONE CARE Member Number: [id number] Policy Number: NA Group Number: [facility] Plan Information #: 2 Payer: [facility] [employer]/[employer] C[employer] Member Number: [id number] Policy Number: NA Group Number: NA
--- OUTSIDE RECORDS SUMMARY | 2024-07-19 10:43 | XMS_ITS | Continuity of Care Document ---
Author Organization [facility] Address [address] [place] [address]- Care Team Providers Care Barrel Rifler Broach Name Role Phone Nataliia CARLSONFernando Dolores Primary Care Physician [place] [facility] [place]24 - 05/26/24 [facility] [address] [place] [address]- Attending Physician: Nicole Galvin MD Admitting Physician: Glenis VACA, Nicole Referring Physician: Rashaun Pacheco MD Allergies, Adverse Reactions, Alerts Substance Reaction Severity [...] 2 Refills, Maintenance, 04/13/24 21:54:00 EDT, Tablet, [id number], Partial fill upon patient request if the [...] 12/12/19 13:53:00 EDT, Route to Pharmacy Electronically, [facility] STORE 63252, 164, cm, 11/03/19 13:54:00 EDT, Height, 122.4, kg, 07/03/19 23:45:00 EST, Dry Weight Start Date: 12/12/19 Status: Ordered levothyroxine 0.2 mg oral tablet 1 tablet, By Mouth, Daily, # 90 tablet, 0 Refills, Maintenance, 11/25/23 1:26:00 EDT, [facility], 163, cm, 07/10/23 13:16:00 EST, Height, 143, [...] tablet, 1 Refills, Maintenance, 10/19/23 13:05:00 EST, [facility]/pharmacy #[id number], Partial fill upon patient request if the prescription is for a schedule II opioid drug., 163, cm, 07/10... Start Date: 10/19/23 Status: Ordered norethindrone 5 mg oral tablet 10 mg, 2, tablet, By Mouth, Daily, # 60 tablet, Refills 0, Tot. Refills 0, Maintenance, 07/21/22 13:01:00 EST, Route to Pharmacy Electronically, [facility]/pharmacy #[id number], Partial fill upon patient request if the prescription is for a schedule II opioid drug... Start Date: 07/21/22 Status: Ordered norethindrone 5 mg oral tablet 5 mg, 1, tablet, By Mouth, Daily, # 90 tablet, Refills 4, Tot. Refills 4, Maintenance, 04/05/24 17:02:00 EDT, Route to Pharmacy Electronically, [facility]/pharmacy #[id number], Partial fill upon patient request [...] Condition Confirmation Course Effective Dates Status H ealt Status Informant Asthma Confirmed Active Chronic bipolar [...] Team Personnel Name: Swathi Steinberg RN Position: [facility] RN Member Role: Primary Care Nurse Name: Joanne Wright RN Position: [facility] RN Member Role: Primary Care Nurse Name: Fernando William DO Position: [facility] Physician (General Medicine) Member Role: PCP Address: Address: [address] [place] [id number] Name: Marie Jimenez RN, I Position: [facility] RN Member Role: Primary Care Nurse Care Team Related Persons Name: VIKRAM ROBERTO Address: [address] [address] Name: KATIANA KNOX Address: [place] [address] Name: PREETI COONEY Name: BHARGAV OSBORNE Address: home [address] [place] [address]
--- OUTSIDE RECORDS SUMMARY | 2024-07-19 10:43 | XMS_ITS | Continuity of Care Document ---
Author Organization [facility] Address [address] [place] [address]- Care Team Providers Care Quantitative Software Engineer Name Role Phone Nataliia CARLSONFernando Primary Care Physician Encounter [facility] [place] Date(s): 04/08/24 - 05/08/[address] [address]- Allergies, Adverse Reactions, Alerts Substance Reaction Severity [...] Refills, Maintenance, 04/13/24 21:54:00 EDT, Tablet, [id number], Partial fill upon patient request if the [...] 12/12/19 13:53:00 EDT, Route to Pharmacy Electronically, [facility] 39098, 164, cm, 11/03/19 13:54:00 EDT, Height, 122.4, kg, 07/03/19 23:45:00 EST, Dry Weight Start Date: 12/12/19 Status: Ordered levothyroxine 0.2 mg oral tablet 1 tablet, By Mouth, Daily, # 90 tablet, 0 Refills, Maintenance, 11/25/23 1:26:00 EDT, [facility], 163, cm, 07/10/23 13:16:00 EST, Height, 143, [...] tablet, 1 Refills, Maintenance, 10/19/23 13:05:00 EST, [facility]/pharmacy #[id number], Partial fill upon patient request if the prescription is for a schedule II opioid drug., 163, cm, 07/10... Start Date: 10/19/23 Status: Ordered norethindrone 5 mg oral tablet 10 mg, 2, tablet, By Mouth, Daily, # 60 tablet, Refills 0, Tot. Refills 0, Maintenance, 07/21/22 13:01:00 EST, Route to Pharmacy Electronically, [facility]/pharmacy #[id number], Partial fill upon patient request if the prescription is for a schedule II opioid drug... Start Date: 07/21/22 Status: Ordered norethindrone 5 mg oral tablet 5 mg, 1, tablet, By Mouth, Daily, # 90 tablet, Refills 4, Tot. Refills 4, Maintenance, 04/05/24 17:02:00 EDT, Route to Pharmacy Electronically, [facility]/pharmacy #[id number], Partial fill upon patient request if [...] Care Nurse Name: Joanne Wright RN Position: [facility] RN Member Role: Primary Care Nurse Name: Fernando William DO Position: [facility] Physician (General Medicine) Member Role: PCP Address: Address: [address] [place] [address] [place], [place] [address] Name: Marie Jimenez RN, I Position: [facility] RN Member Role: Primary Care Nurse Care Team Related Persons Name: ROBERTO SUE Address: [address] [address] Name: KATIANA KNOX Address: [place] [address] Name: PREETI COONEY Name: BHARGAV OSBORNE Address: home [address] [place] [address]
--- OUTSIDE RECORDS SUMMARY | 2024-07-19 10:43 | XMS_ITS | Continuity of Care Document ---
Author Organization [facility] Jenna nathen Address [address] [place] [address] [address] [place] [address]- Care Team Providers Care Transmitter Engineer In Charge Name Role Phone Nataliia Fernando CARLSON Primary Care Physician [place] [facility] [place]/23 [facility] [address] [place], [place] [address] Allergies, Adverse Reactions, Alerts Substance Reaction Severity [...] 12:29:25 EST Start Date: 07/04/19 Status: Ordered gabapentin 100 mg oral capsule [...] 12/12/19 13:53:00 EDT, Route to Pharmacy Electronically, [facility] 81026, 164, cm, 11/03/19 13:54:00 EDT, Height, 122.4, kg, 07/03/19 23:45:00 EST, Dry Weight Start Date: 12/12/19 Status: Ordered levothyroxine 0.2 mg oral tablet 1 tablet = 200 mcg, By Mouth, Daily, # 30 tablet, 11 Refills, Maintenance, 09/19/22 10:53:00 EST, Tablet, [facility]/pharmacy #[id number], Partial fill upon patient request if the prescription is for a schedule II opioid drug., 163, cm, 07/21/22 9:05:00 EST, Heigh... Start Date: 09/19/22 Status: Ordered losartan 50 mg oral tablet 50 mg, 1, tablet, By Mouth, Daily, # 30 tablet, Refills 0, Maintenance, 07/04/19 15:53:51 EST Start Date: 07/04/19 Status: Ordered norethindrone 5 mg oral tablet 10 mg, 2, tablet, By Mouth, Daily, # 60 tablet, Refills 0, Tot. Refills 0, Maintenance, 07/21/22 13:01:00 EST, Route to Pharmacy Electronically, [facility]/pharmacy #[id number], Partial fill upon patient request if [...] Team Personnel Name: Swathi Steinberg RN Position: [facility] RN Member Role: Primary Care Nurse Name: Joanne Wright RN Position: [facility] RN Member Role: Primary Care Nurse Name: Fernando William DO Position: [facility] Physician (General Medicine) Member Role: PCP Address: Address: [address] [place] [address] Name: Marie Jimenez RN, I Position: [facility] RN Member Role: Primary Care Nurse Care Team Related Persons Name: ROBERTO SUE Address: [address] [address] Name: CORINE BERUMEN Address: [place], [place] Name: KATIANA KNOX Address: [place] [address] Name: PREETI COONEY Name: BHARGAV OSBORNE Address: home [address] [place] [id number]
[2024-07-19 10:44] LABS: MANUAL DIFF FLAG NO
--- OUTSIDE RECORDS SUMMARY | 2024-07-19 10:44 | XMS_ITS | Continuity of Care Document ---
Author Organization [facility] Address [address] [place] [address]- Care Team Providers Care Clearing House Clerk Name Role Phone Leobardo William DOdomingoasad Bernal Primary Care Physician ( [phone] Encounter [facility] [place] Date(s): 03/29/23 - 04/28/23 [facility] [address] [place] [address] Allergies, Adverse Reactions, Alerts Substance Reaction [...] 12/12/19 13:53:00 EDT, Route to Pharmacy Electronically, [facility] 06364, 164, cm, 11/03/19 13:54:00 EDT, Height, 122.4, kg, 07/03/19 23:45:00 EST, Dry Weight Start Date: 4/20/20 Status: Ordered levothyroxine 0.2 mg oral tablet 1 tablet = 200 mcg, By Mouth, Daily, # 30 tablet, 11 Refills, Maintenance, 09/19/22 10:53:00 EST, Tablet, [facility]/pharmacy #[id number], Partial fill upon patient request if [...] 07/21/22 13:01:00 EST, Route to Pharmacy Electronically, [facility]/pharmacy #[id number], Partial fill upon patient request if [...] Nurse Name: Joanne Wright RN Position: [facility] RN Member Role: Primary Care Nurse Name: Fernando William DO Position: [facility] Physician (General Medicine) Member Role: PCP Address: Address: [address] [place] [id number] Name: Marie Jimenez RN, I Position: [facility] RN Member Role: Primary Care Nurse Care Team Related Persons Name: ROBERTO SUE Address: [address] [address] Name: CORINE BERUMEN Address: [place], [place] Name: KATIANA KNOX Address: [place] [address] Name: PREETI COONEY Name: BHARGAV OSBORNE Address: home [address] [place] [address]
--- OUTSIDE RECORDS SUMMARY | 2024-07-19 10:44 | XMS_ITS | Continuity of Care Document ---
Author Organization [facility] Jenna nathen Address [address] [place] [address] [address] [place] [address]- Care Team Providers Care Senior Materials Analyst Name Role Phone Nataliia CARLSONFernando Primary Care Physician Encounter [facility] [place] Date(s[place] 03/19/23 - 03/26/23 [facility] [address] [place], [place] [address] Attending Physician: Ramona Quintero Allergies, Adverse Reactions, Alerts Substance Reaction Severity [...] 12/12/19 13:53:00 EDT, Route to Pharmacy Electronically, [email or web address] ST[facility] 66182, 164, cm, 11/03/19 13:54:00 EDT, Height, 122.4, kg, 07/03/19 23:45:00 EST, Dry Weight Start Date: 12/12/19 Status: Ordered levothyroxine 0.2 mg oral tablet 1 tablet = 200 mcg, By Mouth, Daily, # 30 tablet, 11 Refills, Maintenance, 09/19/22 10:53:00 EST, Tablet, [facility]/pharmacy #[id number], Partial fill upon patient [...] 07/21/22 13:01:00 EST, Route to Pharmacy Electronically, [facility]/pharmacy [...] disorder) Confirmed Active Severe obesity Confirmed Active Vital Signs Most recent to oldest [Reference Range]: 1 Height 163 cm (03/19/23 3:04 PM) Weight 143 kg (03/19/23 3:04 PM) Body Mass Index [18.5-24.99 kg/m2] 53.82 kg/m2 *>HHI* (03/19/23 3:04 PM) Social History Social History Type Response Tobacco Use: 4 or less cigar ettes(less than 1/4 pack)/day in last 30 days. Sex Patient Care team information Care Team Personnel Name: Swathi Steinberg RN Position: S RN Member Role: Primary Care Nurse Name: oJanne Wright RN Position: S RN Member Role: Primary Care Nurse Name: Fernando William DO Position: [facility] Physician (General Medicine) Member Role: PCP Address: Address: [address] [place] [id number] Name: Marie Jimenez RN, I Position: [facility] RN Member Role: Primary Care Nurse Care Team Related Persons Name: ROBERTO SUE Address: [address] [address] Name: CORINE BERUMEN Address: [place], [place] Name: KATIANA KNOX Address: [place] [address] Name: PREETI COONEY Name: BHARGAV OSBORNE Address: home [address] [place] [address]
--- OUTSIDE RECORDS SUMMARY | 2024-07-19 10:44 | XMS_ITS | Continuity of Care Document ---
Author Organization [facility] Address [address] [place] [address]- Care Team Providers Care Logistics Supervisor Name Role Phone Nataliia Fernando CARLSON Primary Care Physician Encounter [facility] [place] Date(s): 10/20/23 - 11/19/23 [facility] [address] [place] [id number] Referring Physician: Venice Solano Allergies, Adverse Reactions, [...] 12/12/19 13:53:00 EDT, Route to Pharmacy Electronically, [facility] STORE 71226, 164, cm, 11/03/19 13:54:00 EDT, Height, 122.4, kg, 07/03/19 23:45:00 EST, Dry Weight Start Date: 12/12/19 Status: Ordered levothyroxine 0.2 mg oral tablet 1 tablet, By Mouth, Daily, # 90 tablet, 0 Refills, Maintenance, 10/19/23 14:54:00 EST, [facility], 163, cm, 07/10/23 13:16:00 EST, Height, 143, kg, 12/06/22 23:04:00 EDT, Dry Weight Start Date: 10/19/23 Status: Ordered losartan 50 mg oral tablet 50 mg, 1, tablet, By Mouth, Daily, # 30 tablet, Refills 0, Maintenance, 07/04/19 15:53:51 EST Start Date: 07/04/19 Status: Ordered MetFORMIN (Eqv-Glucophage XR) 500 mg oral tablet, extended release 1 tablet = 500 mg, By Mouth, Daily, Needs appt for further refills, # 30 tablet, 1 Refills, Maintenance, 10/19/23 13:05:00 EST, [facility]/pharmacy #[id number], Partial fill upon patient request if the prescription is for a schedule II opioid drug., 163, cm, 07/10... Start Date: 10/19/23 Status: Ordered norethindrone 5 mg oral tablet 10 mg, 2, tablet, By Mouth, Daily, # 60 tablet, Refills 0, Tot. Refills 0, Maintenance, 07/21/22 13:01:00 EST, Route to Pharmacy Electronically, [facility]/pharmacy #[id number], Partial fill upon patient request [...] Team Personnel Name: Swathi Steinberg RN Position: [facility] RN Member Role: Primary Care Nurse Name: Joanne Wright RN Position: [facility] SN RN Member Role: Primary Care Nurse Name: Fernando William DO Position: [facility] Physician (General Medicine) Member Role: PCP Address: Address: [address] [place] [id number] Name: Marie Jimenez RN, I Position: [facility] RN Member Role: Primary Care Nurse Care Team Related Persons Name: ROBERTO SUE Address: home [address] [place] [address] Name: CORINE BERUMEN Address: [place], [place] Name: KATIANA KNOX Address: [place] [address] Name: PREETI COONEY Name: BHARGAV OSBORNE Address: home [address] [place] [address]
--- OUTSIDE RECORDS SUMMARY | 2024-07-19 10:44 | XMS_ITS | Continuity of Care Document ---
Author Organization [facility] Jenna nathen Address [address] [place] [address] [address] [place] [address]- Care Team Providers Care Flatwork Catcher Name Role Phone Nataliia Fernando CARLSON Primary Care Physician Encounter [facility] [place] Date(s): 04/03/23 - 05/03/23 [facility] [address] [place] [address] Drive [address] [place], [place] [address] Attending Physician: Freida Phan Admitting Physician: AdmtrFreida Referring Physician: AdmtrFreida Allergies, Adverse Reactions, Alerts Substance Reaction Severity [...] 12/12/19 13:53:00 EDT, Route to Pharmacy Electronically, [facility] 81994, 164, cm, 11/03/19 13:54:00 EDT, Height, 122.4, kg, 07/03/19 23:45:00 EST, Dry Weight Start Date: 12/12/19 Status: Ordered levothyroxine 0.2 mg oral tablet 1 tablet = 200 mcg, By Mouth, Daily, # 30 tablet, 11 Refills, Maintenance, 09/19/22 10:53:00 EST, Tablet, [facility]/pharmacy #[id number], Partial fill upon [...] 07/21/22 13:01:00 EST, Route to Pharmacy Electronically, [facility]/pharmacy #[id number], Partial fill upon [...] Team Personnel Name: Swathi Steinberg RN Position: [facility] RN Member Role: Primary Care Nurse Name: Joanne Wright RN Position: S RN Member Role: Primary Care Nurse Name: Fernando William DO Position: [facility] Physician (General Medicine) Member Role: PCP Address: Address: [address] [place] [id number] Name: Marie Jimenez RN, I Position: [facility] RN Member Role: Primary Care Nurse Care Team Related Persons Name: ROBERTO SUE Address: home [address] [place] [address] Name: CORINE BERUMEN Address: [place], [place] Name: KATIANA KNOX Address: [place] [address] Name: PREETI COONEY Name: BHARGAV OSBORNE Address: home [address] [place] [address]
--- OUTSIDE RECORDS SUMMARY | 2024-07-19 10:44 | XMS_ITS | Continuity of Care Document ---
Author Organization [facility] Address [address] [place] [address]- Care Team Providers Care Clinical Research Director Name Role Phone Leobardo William DOdomingoasad Bernal Primary Care Physician Encounter [facility] [place] Date(s): 05/14/23 - 06/13/23 [facility] [address] [place] [id number] Referring Physician: Venice Solano Allergies, Adverse Reactions, [...] 12/12/19 13:53:00 EDT, Route to Pharmacy Electronically, [facility] STORE 77487, 164, cm, 11/03/19 13:54:00 EDT, Height, 122.4, kg, 07/03/19 23:45:00 EST, Dry Weight Start Date: 12/12/19 Status: Ordered levothyroxine 0.2 mg oral tablet 1 tablet = 200 mcg, By Mouth, Daily, # 30 tablet, 11 Refills, Maintenance, 09/19/22 10:53:00 EST, Tablet, [facility]/pharmacy #[id number], Partial fill upon patient request [...] 07/21/22 13:01:00 EST, Route to Pharmacy Electronically, [facility]/pharmacy #[id number], Partial fill upon patient request [...] Team Personnel Name: Swathi Steinberg RN Position: [facility] RN Member Role: Primary Care Nurse Name: Joanne Wright RN Position: [facility] RN Member Role: Primary Care Nurse Name: Fernando William DO Position: [facility] Physician (General Medicine) Member Role: PCP Address: Address: [address] [place] [phone] Name: Marie Jimenez RN, I Position: [facility] RN Member Role: Primary Care Nurse Care Team Related Persons Name: ROBERTO SUE Address: [address] [address] Name: CORINE BERUMEN Address: [place], [place] Name: KATIANA KNOX Address: [place] [address] Name: PREETI COONEY Name: BHARGAV OSBORNE Address: [address] [address]
--- OUTSIDE RECORDS SUMMARY | 2024-07-19 10:44 | XMS_ITS | Continuity of Care Document ---
Author Organization [facility] Address [address] [place] [address]- Care Team Providers Care Clinical Biochemical Geneticist Name Role Phone Nataliia CARLSON Fernando Dolores Primary Care Physician Encounter [facility] [place] Date(s): 05/30/24 - 06/29/[address] [address] Allergies, Adverse Reactions, Alerts Substance Reaction [...] Refills, Maintenance, 04/13/24 21:54:00 EDT, Tablet, [id number], Partial fill upon patient request if the [...] 12/12/19 13:53:00 EDT, Route to Pharmacy Electronically, [facility] STORE 58114, 164, cm, 11/03/19 13:54:00 EDT, Height, 122.4, kg, 07/03/19 23:45:00 EST, Dry Weight Start Date: 12/12/19 Status: Ordered levothyroxine 0.2 mg oral tablet 1 tablet, By Mouth, Daily, # 90 tablet, 0 Refills, Maintenance, 11/25/23 1:26:00 EDT, [facility], 163, cm, 07/10/23 13:16:00 EST, Height, 143, [...] tablet, 1 Refills, Maintenance, 10/19/23 13:05:00 EST, [facility]/pharmacy #[id number], Partial fill upon patient request if the prescription is for a schedule II opioid drug., 163, cm, 07/10... Start Date: 10/19/23 Status: Ordered norethindrone 5 mg oral tablet 10 mg, 2, tablet, By Mouth, Daily, # 60 tablet, Refills 0, Tot. Refills 0, Maintenance, 07/21/22 13:01:00 EST, Route to Pharmacy Electronically, [facility]/pharmacy #[id number], Partial fill upon patient request if the prescription is for a schedule II opioid drug... Start Date: 07/21/22 Status: Ordered norethindrone 5 mg oral tablet 5 mg, 1, tablet, By Mouth, Daily, # 90 tablet, Refills 4, Tot. Refills 4, Maintenance, 04/05/24 17:02:00 EDT, Route to Pharmacy Electronically, [facility]/pharmacy #[id number], Partial fill upon patient [...] Team Personnel Name: Swathi Steinberg RN Position: [facility] RN Member Role: Primary Care Nurse Name: Joanne Wright RN Position: [facility] RN Member Role: Primary Care Nurse Name: Fernando William DO Position: [facility] Physician (General Medicine) Member Role: PCP Address: Address: [address] [place] [id number] Name: Marie Jimenez RN, I Position: [facility] RN Member Role: Primary Care Nurse Care Team Related Persons Name: ROBERTO SUE Address: [address] [address] Name: KATIANA KNOX Address: [place] [address] Name: PREETI COONEY Name: BHARGAV OSBORNE Address: home [address] [place] [address]
--- OUTSIDE RECORDS SUMMARY | 2024-07-19 10:44 | XMS_ITS | Continuity of Care Document ---
Author Organization [facility] Address [address] [place] [address]- Care Team Providers Care Heavy Equipment Diesel Mechanic Name Role Phone Nataliia Fernando CARLSON Primary Care Physician ( [phone] Encounter [facility] [place] Date(s): 11/24/23 - 12/24/23 [facility] [address] [place] [id number] Referring Physician: Venice Solano Allergies, Adverse [...] 12/12/19 13:53:00 EDT, Route to Pharmacy Electronically, [facility] ST[facility] 69343, 164, cm, 11/03/19 13:54:00 EDT, Height, 122.4, kg, 07/03/19 23:45:00 EST, Dry Weight Start Date: 12/12/19 Status: Ordered levothyroxine 0.2 mg oral tablet 1 tablet, By Mouth, Daily, # 90 tablet, 0 Refills, Maintenance, 11/25/23 1:26:00 EDT, [facility], 163, cm, 07/10/23 13:16:00 EST, Height, 143, [...] tablet, 1 Refills, Maintenance, 10/19/23 13:05:00 EST, [facility]/pharmacy #[id number], Partial fill upon patient [...] Care Nurse Name: Fernando William DO Position: [facility] Physician (General Medicine) Member Role: PCP Address: Address: [address] [place] [id number] Name: Marie Jimenez RN, I Position: [facility] RN Member Role: Primary Care Nurse Care Team Related Persons Name: ROBERTO SUE Address: home [address] [place] [address] Name: CORINE BERUMEN Address: [place], [place] Name: KATIANA KNOX Address: [place] [address] Name: PREETI COONEY Name: BHARGAV OSBORNE Address: home [address] [place] [address]
--- OUTSIDE RECORDS SUMMARY | 2024-07-19 10:44 | XMS_ITS | Continuity of Care Document ---
Author Organization [facility] Address [address] [place] [address]- Care Team Providers Care Tractor Drill Operator Name Role Phone Fernando William DO Primary Care Physician Encounter [facility] [place] [facility] [id number] Date(s): 11/06/23 - 03/05/24 [facility] [address] [place] [address]- Attending Physician: Bala Liu MD Admitting Physician: Bala Liu MD Referring Physician: Venice Solano Allergies, Adverse Reactions, [...] 12/12/19 13:53:00 EDT, Route to Pharmacy Electronically, [facility] STORE 42970, 164, cm, 11/03/19 13:54:00 EDT, Height, 122.4, kg, 07/03/19 23:45:00 EST, Dry Weight Start Date: 12/12/19 Status: Ordered levothyroxine 0.2 mg oral tablet 1 tablet, By Mouth, Daily, # 90 tablet, 0 Refills, Maintenance, 11/25/23 1:26:00 EDT, [facility] STORE 85281, 163, cm, 07/10/23 13:16:00 EST, Height, 143, [...] tablet, 1 Refills, Maintenance, 10/19/23 13:05:00 EST, [facility]/pharmacy #[id number], Partial fill upon patient request if the prescription is for a schedule II opioid drug., 163, cm, 07/10... Start Date: 10/19/23 Status: Ordered norethindrone 5 mg oral tablet 10 mg, 2, tablet, By Mouth, Daily, # 60 tablet, Refills 0, Tot. Refills 0, Maintenance, 07/21/22 13:01:00 EST, Route to Pharmacy Electronically, [facility]/pharmacy #[id number], Partial fill upon patient request if the prescription is for a schedule II opioid drug... Start Date: 07/21/22 Status: Ordered Ozempic (1 mg dose) 4 [...] Wright RN Position: [facility] SN RN Member Role: Primary Care Nurse Name: Fernando William DO Position: [facility] Physician (General Medicine) Member Role: PCP Address: Address: [address] [place] [address] [place] [address]- Name: Marie Jimenez RN, I Position: [facility] RN Member Role: Primary Care Nurse Care Team Related Persons Name: ROBERTO SUE Address: home [address] [place] [address] Name: KATIANA KNOX Address: [place] [address] Name: PREETI COONEY Name: BHARGAV OSBORNE Address: home [address] [place] [address]
--- OUTSIDE RECORDS SUMMARY | 2024-07-19 10:44 | XMS_ITS | Continuity of Care Document ---
Author Organization [facility] ter Address [address] [place] [address]- Care Team Providers Care Customer Program Specialist Name Role Phone Nataliia CARLSONFernando Primary Care Physician Encounter [facility] [place] Date(s): 04/13/24 - 04/14/[address] [address]- Discharge Disposition: A-D/C Walkout Attending Physician: Not on Staff, Attending MD Admitting Physician: Not on Staff, Admitting MD Referring Physician: Not on Staff, Referring MD Allergies, Adverse Reactions, Alerts Substance Reaction [...] Refills, Maintenance, 04/13/24 21:54:00 EDT, Tablet, [id number], Partial fill upon patient request if the [...] 13:53:00 EDT, Route to Pharmacy Electronically, [facility] STORE 10254, 164, cm, 11/03/19 13:54:00 EDT, Height, 122.4, kg, 07/03/19 23:45:00 EST, Dry Weight Start Date: 12/12/19 Status: Ordered levothyroxine 0.2 mg oral tablet 1 tablet, By Mouth, Daily, # 90 tablet, 0 Refills, Maintenance, 11/25/23 1:26:00 EDT, [facility], 163, cm, 07/10/23 13:16:00 EST, Height, 143, [...] 1 Refills, Maintenance, 10/19/23 13:05:00 EST, [facility]/pharmacy #[id number], Partial fill upon patient request if the prescription is for a schedule II opioid drug., 163, cm, 07/10... Start Date: 10/19/23 Status: Ordered norethindrone 5 mg oral tablet 10 mg, 2, tablet, By Mouth, Daily, # 60 tablet, Refills 0, Tot. Refills 0, Maintenance, 07/21/22 13:01:00 EST, Route to Pharmacy Electronically, [facility]/pharmacy #[id number], Partial fill upon patient request if the prescription is for a schedule II opioid drug... Start Date: 07/21/22 Status: Ordered norethindrone 5 mg oral tablet 5 mg, 1, tablet, By Mouth, Daily, # 90 tablet, Refills 4, Tot. Refills 4, Maintenance, 04/05/24 17:02:00 EDT, Route to Pharmacy Electronically, [facility]/pharmacy #[id number], Partial fill upon patient [...] obesity Confirmed Active Hernia, umbilical Confirmed Active Vital Signs Most recent to oldest [Reference Range]: 1 2 Height 163 cm (04/13/24 10:57 PM) 163 cm (04/13/24 10:53 PM) Weight 122 kg (04/13/24 10:57 PM) 122 kg (04/13/24 10:53 PM) Oxygen Saturation [94-100 %] 98 % (04/13/24 10:53 PM) Pulse Rate [55-90 bpm] 76 bpm (04/13/24 10:53 PM) Body Mass Index [18.5-24.99 kg/m2] 45.92 kg/m2 *>HHI* (04/13/24 10:53 PM) Blood Pressure [90-138/55-84 mm Hg] 112/ 69mm Hg (04/13/24 10:53 PM) Respiratory Rate [16-30 br/min] 17 br/mi n (04/13/24 10:53 PM) Temperature [96.8-100.4 DegF] 98.0 DegF (04/13/24 10:53 PM) Mode of Delivery (Oxygen) Room air (04/13/24 10:53 PM) Blood pressure sites Arm, left (04/13/24 10:53 PM) Temperature Route Oral (04/13/24 10:53 PM) Dry Weight 122 kg (04/13/24 10:57 PM) 122 kg (04/13/24 10:53 PM) Weight Obtained Via Standing scale (04/13/24 10:53 PM) Dry Weight Obtained Via Standing scale (04/13/24 10:53 PM) Social History Social History Type Response Tobacco Use: 4 or less cigar ettes(less than 1/4 pack)/day in last 30 days. Sex Patient Care team information Care Team Personnel Name: Swathi Steinberg RN Position: S RN Member Role: Primary Care Nurse Name: Joanne Wright RN Position: [facility] SN RN Member Role: Primary Care Nurse Name: Fernando William DO Position: [facility] Physician (General Medicine) Member Role: PCP Address: Address: [address] [place] [id number] Name: Marie Jimenez RN, I Position: S RN Member Role: Primary Care Nurse Care Team Related Persons Name: ROBERTO SUE Address: home [address] [place] [id number] Name: AKTIANA KNOX Address: [place] [address] Name: PREETI COONEY Name: BHARGAV OSBORNE Address: home [address] [place] [address]
--- OUTSIDE RECORDS SUMMARY | 2024-07-19 10:44 | XMS_ITS | Continuity of Care Document ---
Author Organization [facility] Jenna nathen Address [address] [place] [address] [address] [place] [address]- Care Team Providers Care Rn Long Term Care Name Role Phone Nataliia CARLSON Fernando Dolores Primary Care Physician Encounter [facility] [place] Date(s): 03/19/23 - 05/03/23 [facility] [address] [place], [place] [address] Attending Physician: Johnathon Jasmine MD Allergies, Adverse Reactions, Alerts Substance Reaction [...] 12/12/19 13:53:00 EDT, Route to Pharmacy Electronically, [facility] ST[facility] 85254, 164, cm, 11/03/19 13:54:00 EDT, Height, 122.4, kg, 07/03/19 23:45:00 EST, Dry Weight Start Date: 12/12/19 Status: Ordered levothyroxine 0.2 mg oral tablet 1 tablet = 200 mcg, By Mouth, Daily, # 30 tablet, 11 Refills, Maintenance, 09/19/22 10:53:00 EST, Tablet, [facility]/pharmacy #[id number], Partial fill upon patient [...] 07/21/22 13:01:00 EST, Route to Pharmacy Electronically, [facility]/pharmacy #[id number], Partial fill upon patient [...] Team Personnel Name: Swathi Steinberg RN Position: [facility] RN Member Role: Primary Care Nurse Name: Joanne Wright RN Position: [facility] RN Member Role: Primary Care Nurse Name: Fernando William DO Position: [facility] Physician (General Medicine) Member Role: PCP Address: Address: [address] [place] [address] Name: Marie Jimenez RN, I Position: [facility] RN Member Role: Primary Care Nurse Care Team Related Persons Name: ROBERTO SUE Address: [address] [address] Name: CORINE BERUMEN Address: [place], [place] Name: KATIANA KNOX Address: [place] [address] Name: PREETI COONEY Name: BHARGAV OSBORNE Address: home [address] [place] [address]
--- OUTSIDE RECORDS SUMMARY | 2024-07-19 10:44 | XMS_ITS | Continuity of Care Document ---
Author Organization [facility] Address [address] [place] [address]- Care Team Providers Care Metal Sprayer Production Name Role Phone Nataliia CARLSONFernando Primary Care Physician ( [phone] Encounter [facility] Date(s): 04/26/24 - 05/26/24 [facility] [address] [place] [address]- Attending Physician: Freida Phan Admitting Physician: Freida Phan Referring Physician: AdmtrFreida Allergies, Adverse Reactions, Alerts [...] Refills, Maintenance, 04/13/24 21:54:00 EDT, Tablet, [id number], Partial fill upon patient request if the [...] E11.9, 01/29/24 18:57:00 EDT, Supply, 163, cm, 05/06/24 12:54:00 EDT,Height, 143, kg, 12/06/22 23:04:00 EDT, [...] 12/12/19 13:53:00 EDT, Route to Pharmacy Electronically, [facility] STORE 71768, 164, cm, 11/03/19 13:54:00 EDT, Height, 122.4, kg, 07/03/19 23:45:00 EST, Dry Weight Start Date: 12/12/19 Status: Ordered levothyroxine 0.2 mg oral tablet 1 tablet, By Mouth, Daily, # 90 tablet, 0 Refills, Maintenance, 11/25/23 1:26:00 EDT, [facility] STORE 61062, 163, cm, 07/10/23 13:16:00 EST, Height, 143, [...] tablet, 1 Refills, Maintenance, 10/19/23 13:05:00 EST, [facility]/pharmacy #[id number], Partial fill upon patient request if the prescription is for a schedule II opioid drug., 163, cm, 07/10... Start Date: 10/19/23 Status: Ordered norethindrone 5 mg oral tablet 10 mg, 2, tablet, By Mouth, Daily, # 60 tablet, Refills 0, Tot. Refills 0, Maintenance, 07/21/22 13:01:00 EST, Route to Pharmacy Electronically, [facility]/pharmacy #[id number], Partial fill upon patient request if the prescription is for a schedule II opioid drug... Start Date: 07/21/22 Status: Ordered norethindrone 5 mg oral tablet 5 mg, 1, tablet, By Mouth, Daily, # 90 tablet, Refills 4, Tot. Refills 4, Maintenance, 04/05/24 17:02:00 EDT, Route to Pharmacy Electronically, [facility]/pharmacy #[id number], Partial fill upon patient request if [...] Care Nurse Name: Joanne Wright RN Position: [facility] RN Member Role: Primary Care Nurse Name: Fernando William DO Position: [facility] Physician (General Medicine) Member Role: PCP Address: Address: [address] [place] [address] [place], [place] [address] Name: Marie Jimenez RN, I Position: [facility] RN Member Role: Primary Care Nurse Care Team Related Persons Name: ROBERTO SUE Address: [address] [address] Name: KATIANA KNOX Address: [place] [address] Name: PREETI COONEY Name: BHARGAV OSBORNE Address: home [address] [place] [address]
--- OUTSIDE RECORDS SUMMARY | 2024-07-19 10:45 | XMS_ITS | Continuity of Care Document ---
Author Organization [facility] Address [address] [place] [address]- Care Team Providers Care Dental Technician Name Role Phone Nataliia Fernando CARLSON Primary Care Physician Encounter [facility] [place] Date(s): 02/23/24 - 03/24/24 [facility] [address] [place] [address]- Attending Physician: Freida Phan Admitting Physician: Freida Phan Referring Physician: Freida Phan Allergies, Adverse Reactions, Alerts Substance Reaction Severity [...] 12/12/19 13:53:00 EDT, Route to Pharmacy Electronically, [facility] ST[facility] 86198, 164, cm, 11/03/19 13:54:00 EDT, Height, 122.4, kg, 07/03/19 23:45:00 EST, Dry Weight Start Date: 12/12/19 Status: Ordered levothyroxine 0.2 mg oral tablet 1 tablet, By Mouth, Daily, # 90 tablet, 0 Refills, Maintenance, 11/25/23 1:26:00 EDT, [facility] 77829, 163, cm, 07/10/23 13:16:00 EST, Height, 143, [...] tablet, 1 Refills, Maintenance, 10/19/23 13:05:00 EST, [facility]/pharmacy #[id number], Partial fill upon patient request if the prescription is for a schedule II opioid drug., 163, cm, 07/10... Start Date: 10/19/23 Status: Ordered norethindrone 5 mg oral tablet 10 mg, 2, tablet, By Mouth, Daily, # 60 tablet, Refills 0, Tot. Refills 0, Maintenance, 07/21/22 13:01:00 EST, Route to Pharmacy Electronically, [facility]/pharmacy #[id number], Partial fill upon patient request [...] Team Personnel Name: Swathi Steinberg RN Position: [facility] RN Member Role: Primary Care Nurse Name: Joanne Wright RN Position: [facility] SN RN Member Role: Primary Care Nurse Name: Fernando William DO Position: [facility] Physician (General Medicine) Member Role: PCP Address: Address: [address] [place] [address] [place] [address]- Name: Marie Jimenez RN, I Position: [facility] RN Member Role: Primary Care Nurse Care Team Related Persons Name: ROBERTO SUE Address: home [address] [place] [address] Name: KATIANA KNOX Address: [place] [address] Name: PREETI COONEY Name: BHARGAV OSBORNE Address: home [address] [place] [address]
--- OUTSIDE RECORDS SUMMARY | 2024-07-19 10:45 | XMS_ITS | Continuity of Care Document ---
Author Organization [facility] Address [address] [place] [address]- Care Team Providers Care Nuclear Spectroscopist Name Role Phone NataliiaFernando ramos DO Primary Care Physician ( [phone] [place] [facility] [place] Date(s): 11/10/23 - 12/10/[address] [facility] [address] [place] [address] Referring Physician: Meera Venegas Allergies, Adverse Reactions, Alerts Substance Reaction Severity [...] 12/12/19 13:53:00 EDT, Route to Pharmacy Electronically, [facility] 68979, 164, cm, 11/03/19 13:54:00 EDT, Height, 122.4, kg, 07/03/19 23:45:00 EST, Dry Weight Start Date: 4/20/20 Status: Ordered levothyroxine 0.2 mg oral tablet 1 tablet, By Mouth, Daily, # 90 tablet, 0 Refills, Maintenance, 11/25/23 1:26:00 EDT, [facility] STORE 70931, 163, cm, 07/10/23 13:16:00 EST, Height, 143, [...] tablet, 1 Refills, Maintenance, 10/19/23 13:05:00 EST, [facility]/pharmacy #[id number], Partial fill upon patient request if the prescription is for a schedule II opioid drug., 163, cm, 07/10... Start Date: 10/19/23 Status: Ordered norethindrone 5 mg oral tablet 10 mg, 2, tablet, By Mouth, Daily, # 60 tablet, Refills 0, Tot. Refills 0, Maintenance, 07/21/22 13:01:00 EST, Route to Pharmacy Electronically, [facility]/pharmacy #[id number], Partial fill upon patient request if [...] Medicine) Member Role: PCP Address: Address: [address] [place] [id number] Name: Marie Jimenez RN, I Position: [facility] RN Member Role: Primary Care Nurse Care Team Related Persons Name: ROBERTO SUE Address: home [address] [place] [address] Name: CORINE BERUMEN Address: [place], [place] Name: KATIANA KNOX Address: [place] [address] Name: PREETI COONEY Name: BHARGAV OSBORNE Address: home [address] [place] [address]
--- OUTSIDE RECORDS SUMMARY | 2024-07-19 10:45 | XMS_ITS | Continuity of Care Document ---
Author Organization [facility] Address [address] [place] [address]- Care Team Providers Care Branch Logistics Supervisor Name Role Phone Nataliia CARLSONFernando Primary Care Physician [place] [facility] [place](s): 02/02/24 - 03/03/24 [facility] [address] [place] [id number] Allergies, Adverse Reactions, Alerts Substance Reaction Severity [...] 12/12/19 13:53:00 EDT, Route to Pharmacy Electronically, [facility] STORE 65346, 164, cm, 11/03/19 13:54:00 EDT, Height, 122.4, kg, 07/03/19 23:45:00 EST, Dry Weight Start Date: 12/12/19 Status: Ordered levothyroxine 0.2 mg oral tablet 1 tablet, By Mouth, Daily, # 90 tablet, 0 Refills, Maintenance, 11/25/23 1:26:00 EDT, [facility] STORE 16031, 163, cm, 07/10/23 13:16:00 EST, Height, 143, [...] tablet, 1 Refills, Maintenance, 10/19/23 13:05:00 EST, [facility]/pharmacy #[id number], Partial fill upon patient request if the prescription is for a schedule II opioid drug., 163, cm, 07/10... Start Date: 10/19/23 Status: Ordered norethindrone 5 mg oral tablet 10 mg, 2, tablet, By Mouth, Daily, # 60 tablet, Refills 0, Tot. Refills 0, Maintenance, 07/21/22 13:01:00 EST, Route to Pharmacy Electronically, [facility]/pharmacy #[id number], Partial fill upon patient [...] (General Medicine) Member Role: PCP Address: Address: [address] [place] [address]- Name: Marie Jimenez RN, I Position: [facility] RN Member Role: Primary Care Nurse Care Team Related Persons Name: ROBERTO SUE Address: home [address] [place] [address] Name: KATIANA KNOX Address: [place] [address] Name: PREETI COONEY Name: BHARGAV OSBORNE Address: home [address] [place] [phone]
--- OUTSIDE RECORDS SUMMARY | 2024-07-19 10:45 | XMS_ITS | Continuity of Care Document ---
Author Organization [facility] Address [address] [place] [address]- Care Team Providers Care Vocal Teacher Name Role Phone Fernando William DO Primary Care Physician Encounter [facility] [place] Date(s): 12/28/23 - 01/29/[address] [address] Attending Physician: Graciela Merchant MD Admitting Physician: Graciela Merchant MD Referring Physician: Fernando William DO Allergies, Adverse Reactions, Alerts Substance Reaction Severity [...] 12/12/19 13:53:00 EDT, Route to Pharmacy Electronically, [facility] STORE 83477, 164, cm, 11/03/19 13:54:00 EDT, Height, 122.4, kg, 07/03/19 23:45:00 EST, Dry Weight Start Date: 12/12/19 Status: Ordered levothyroxine 0.2 mg oral tablet 1 tablet, By Mouth, Daily, # 90 tablet, 0 Refills, Maintenance, 11/25/23 1:26:00 EDT, [facility] STORE 52831, 163, cm, 07/10/23 13:16:00 EST, Height, 143, [...] tablet, 1 Refills, Maintenance, 10/19/23 13:05:00 EST, [facility]/pharmacy #[id number], Partial fill upon patient request if the prescription is for a schedule II opioid drug., 163, cm, 07/10... Start Date: 10/19/23 Status: Ordered norethindrone 5 mg oral tablet 10 mg, 2, tablet, By Mouth, Daily, # 60 tablet, Refills 0, Tot. Refills 0, Maintenance, 07/21/22 13:01:00 EST, Route to Pharmacy Electronically, [facility]/pharmacy #[id number], Partial fill upon patient request if the prescription is for a schedule II opioid drug... Start Date: 07/21/22 Status: Ordered traMADol 50 mg oral tablet 1 tablet = 50 mg, By Mouth, Every 4 hours, PRN for pain, # 60 tablet, 0 Refills, Maintenance, 05/18/21 14:46:00 EDT, Tablet, Partial fill upon patient [...] Team Personnel Name: Swathi Steinberg RN Position: [facility] RN Member Role: Primary Care Nurse Name: Joanne Wright RN Position: [facility] SN RN Member Role: Primary Care Nurse Name: Fernando William DO Position: [facility] Physician (General Medicine) Member Role: PCP Address: Address: [address] [place] [address] [place] [address]- Name: Marie Jimenez RN, I Position: [facility] RN Member Role: Primary Care Nurse Care Team Related Persons Name: ROBERTO SUE Address: home [address] [place] [address] Name: CORINE BERUMEN Address: [place], [place] Name: KATIANA KNOX Address: [place] [address] Name: PREETI COONEY Name: BHARGAV OSBORNE Address: home [address] [place] [address]
--- OUTSIDE RECORDS SUMMARY | 2024-07-19 10:45 | XMS_ITS | Continuity of Care Document ---
Author Organization [facility] Address [address] [place] [address]- Care Team Providers Care Wrinkle Chaser Name Role Phone Nataliia CARLSONFernando Dolores Primary Care Physician Encounter [facility] [place] Date(s): 09/18/23 - 10/18/23 [facility] [address] [place] [address]- Referring Physician: Venice Solano Allergies, Adverse Reactions, [...] 12/12/19 13:53:00 EDT, Route to Pharmacy Electronically, [facility] 33518, 164, cm, 11/03/19 13:54:00 EDT, Height, 122.4, kg, 07/03/19 23:45:00 EST, Dry Weight Start Date: 12/12/19 Status: Ordered levothyroxine 0.2 mg oral tablet 1 tablet = 200 mcg, By Mouth, Daily, # 30 tablet, 11 Refills, Maintenance, 09/19/22 10:53:00 EST, Tablet, [id number], Partial fill upon patient request [...] tablet = 500 mg, By Mouth, Daily, # 30 tablet, 6 Refills, Maintenance, 07/14/23 6:19:00 EST, [facility]/pharmacy #[id number], Partial fill upon patient request if the prescription is for a schedule II opioid drug., 163, cm, 07/10/23 13:16:00 EST, Height, 143, kg... Start Date: 07/14/23 Status: Ordered norethindrone 5 mg oral tablet 10 mg, 2, tablet, By Mouth, Daily, # 60 tablet, Refills 0, Tot. Refills 0, Maintenance, 07/21/22 13:01:00 EST, Route to Pharmacy Electronically, [facility]/pharmacy #[id number], Partial fill upon patient request if [...] Team Personnel Name: Swathi Steinberg RN Position: [facility] RN Member Role: Primary Care Nurse Name: Joanne Wright RN Position: [facility] SN RN Member Role: Primary Care Nurse Name: Fernando William DO Position: [facility] Physician (General Medicine) Member Role: PCP Address: Address: [address] [place] [id number] Name: Marie Jimenez RN, I Position: [facility] RN Member Role: Primary Care Nurse Care Team Related Persons Name: ROBERTO SUE Address: home [address] [place] [address] Name: CORINE BERUMEN Address: [place], [place] Name: KATIANA KNOX Address: [place] [address] Name: PREETI COONEY Name: BHARGAV OSBORNE Address: home [address] [place] [address]
--- OUTSIDE RECORDS SUMMARY | 2024-07-19 10:45 | XMS_ITS | Continuity of Care Document ---
Author Organization [facility] Address [address] [place] [address]- Care Team Providers Care Power Brake Rebuilder Name Role Phone Nataliia CARLSON Fernando Dolores Primary Care Physician Encounter [facility] Date(s): 03/16/23 - 04/15/23 [facility] [address] [place] [address]- Attending Physician: Ramona Quintero Allergies, Adverse Reactions, [...] 12/12/19 13:53:00 EDT, Route to Pharmacy Electronically, [facility] 67588, 164, cm, 11/03/19 13:54:00 EDT, Height, 122.4, kg, 07/03/19 23:45:00 EST, Dry Weight Start Date: 12/12/19 Status: Ordered levothyroxine 0.2 mg oral tablet 1 tablet = 200 mcg, By Mouth, Daily, # 30 tablet, 11 Refills, Maintenance, 09/19/22 10:53:00 EST, Tablet, [facility]/pharmacy #[id number], Partial fill upon patient request if [...] 07/21/22 13:01:00 EST, Route to Pharmacy Electronically, [facility]/pharmacy #[id number], Partial fill upon patient request if [...] Team Personnel Name: Swathi Steinberg RN Position: [facility] RN Member Role: Primary Care Nurse Name: Joanne Wright RN Position: S RN Member Role: Primary Care Nurse Name: Fernando William DO Position: [facility] Physician (General Medicine) Member Role: PCP Address: Address: [address] [place] [id number] Name: Marie Jimenez RN, I Position: [facility] RN Member Role: Primary Care Nurse Care Team Related Persons Name: ROBERTO SUE Address: [address] [address] Name: CORINE BERUMEN Address: [place], [place] Name: KATIANA KNOX Address: [place] [address] Name: PREETI COONEY Name: BHARGAV OSBORNE Address: [address] [address]
--- OUTSIDE RECORDS SUMMARY | 2024-07-19 10:45 | XMS_ITS | Continuity of Care Document ---
Author Organization [facility] Address [address] [place] [address] [address] [place] [address]- Care Team Providers Care Porcelain Enamel Installer Name Role Phone Nataliia Fernando CARLSON Primary Care Physician [place] [facility] [place](s): 01/20/23 - 02/19/23 [facility] [address] [place] [address]- Allergies, Adverse Reactions, Alerts Substance Reaction Severity [...] 12/12/19 13:53:00 EDT, Route to Pharmacy Electronically, [facility] 74620, 164, cm, 11/03/19 13:54:00 EDT, Height, 122.4, kg, 07/03/19 23:45:00 EST, Dry Weight Start Date: 12/12/19 Status: Ordered levothyroxine 0.2 mg oral tablet 1 tablet = 200 mcg, By Mouth, Daily, # 30 tablet, 11 Refills, Maintenance, 09/19/22 10:53:00 EST, Tablet, [facility]/pharmacy #[id number], Partial fill [...] Care Nurse Name: Joanne Wright RN Position: [facility] RN Member Role: Primary Care Nurse Name: Fernando William DO Position: [facility] Physician (General Medicine) Member Role: PCP Address: Address: [address] [place] [id number] Name: Marie Jimenez RN, I Position: [facility] RN Member Role: Primary Care Nurse Care Team Related Persons Name: ROBERTO SUE Address: [address] [address] Name: CORINE BERUMEN Address: [place], [place] Name: KATIANA KNOX Address: [place] [address] Name: PREETI COONEY Name: BHARGAV OSBORNE Address: home [address] [place] [address]
--- OUTSIDE RECORDS SUMMARY | 2024-07-19 10:46 | XMS_ITS | Continuity of Care Document ---
Author Organization [facility] Address [address] [place] [address]- Care Team Providers Care Marketing Director Assisted Living Name Role Phone Nataliia CARLSON Sawyerasad Bernal Primary Care Physician Encounter [facility] [place] [facility] [id number] Date(s): 03/08/24 - 04/07/[address] [address] Allergies, Adverse Reactions, Alerts Substance Reaction [...] 12/12/19 13:53:00 EDT, Route to Pharmacy Electronically, [facility] STORE 63113, 164, cm, 11/03/19 13:54:00 EDT, Height, 122.4, kg, 07/03/19 23:45:00 EST, Dry Weight Start Date: 12/12/19 Status: Ordered levothyroxine 0.2 mg oral tablet 1 tablet, By Mouth, Daily, # 90 tablet, 0 Refills, Maintenance, 11/25/23 1:26:00 EDT, [facility] STORE 28128, 163, cm, 07/10/23 13:16:00 EST, Height, 143, [...] tablet, 1 Refills, Maintenance, 10/19/23 13:05:00 EST, [facility]/pharmacy #[id number], Partial fill upon patient request if the prescription is for a schedule II opioid drug., 163, cm, 07/10... Start Date: 10/19/23 Status: Ordered norethindrone 5 mg oral tablet 10 mg, 2, tablet, By Mouth, Daily, # 60 tablet, Refills 0, Tot. Refills 0, Maintenance, 07/21/22 13:01:00 EST, Route to Pharmacy Electronically, [facility]/pharmacy #[id number], Partial fill upon patient request if the prescription is for a schedule II opioid drug... Start Date: 07/21/22 Status: Ordered norethindrone 5 mg oral tablet 5 mg, 1, tablet, By Mouth, Daily, # 90 tablet, Refills 4, Tot. Refills 4, Maintenance, 04/05/24 17:02:00 EDT, Route to Pharmacy Electronically, [facility]/pharmacy #[id number], Partial fill upon patient [...] Team Personnel Name: Swathi Steinberg RN Position: [facility] RN Member Role: Primary Care Nurse Name: Joanne Wright RN Position: [facility] RN Member Role: Primary Care Nurse Name: Fernando William DO Position: [facility] Physician (General Medicine) Member Role: PCP Address: Address: [address] [place] [address] [place] [address]- Name: Marie Jimenez RN, I Position: [facility] RN Member Role: Primary Care Nurse Care Team Related Persons Name: ROBERTO SUE Address: [address] [address] Name: KATIANA KNOX Address: [place] [address] Name: PREETI COONEY Name: BHARGAV OSBORNE Address: [address] [address]
--- OUTSIDE RECORDS SUMMARY | 2024-07-19 10:46 | XMS_ITS | Continuity of Care Document ---
Author Organization [facility] Address [address] [place] [address]- Care Team Providers Care Body Presser Name Role Phone Nataliia Fernando CARLSON Primary Care Physician [place] [facility] [place](s): 07/13/23 - 08/12/23 [facility] [address] [place] [id number] Allergies, Adverse Reactions, Alerts Substance Reaction Severity Status morphine Active Bee Stings Active Tylenol 1 Hives Severe Active 1per patient, she is NOT supposed [...] 12/12/19 13:53:00 EDT, Route to Pharmacy Electronically, [facility] STORE 03417, 164, cm, 11/03/19 13:54:00 EDT, Height, 122.4, [...] tablet, 6 Refills, Maintenance, 07/14/23 6:19:00 EST, [facility]/pharmacy #[id number], Partial fill upon [...] Team Personnel Name: Swathi Steinberg RN Position: [facility] RN Member Role: Primary Care Nurse Name: Joanne Wright RN Position: [facility] SN RN Member Role: Primary Care Nurse Name: Fernando William DO Position: [facility] Physician (General Medicine) Member Role: PCP Address: Address: [address] [place] [id number] Name: Marie Jimenez RN, I Position: [facility] RN Member Role: Primary Care Nurse Care Team Related Persons Name: ROBERTO SUE Address: home [address] [place] [address] Name: CORINE BERUMEN Address: [place], [place] Name: KATIANA KNOX Address: [place] [address] Name: PREETI COONEY Name: BHARGAV OSBORNE Address: home [address] [place] [address]
--- OUTSIDE RECORDS SUMMARY | 2024-07-19 10:47 | XMS_ITS | Continuity of Care Document ---
Author Organization [facility] Address [address] [place] [address]- Care Team Providers Care Dry Wall Nailer Name Role Phone Leobardo William DOdomingoasad Bernal Primary Care Physician [place] [facility] [place](s): 05/12/24 - 06/11/24 [facility] [address] [place] [phone] Allergies, Adverse Reactions, Alerts Substance Reaction [...] Refills, Maintenance, 04/13/24 21:54:00 EDT, Tablet, [id number], Partial fill upon patient request if the [...] 12/12/19 13:53:00 EDT, Route to Pharmacy Electronically, [facility] 35678, 164, cm, 11/03/19 13:54:00 EDT, Height, 122.4, kg, 07/03/19 23:45:00 EST, Dry Weight Start Date: 12/12/19 Status: Ordered levothyroxine 0.2 mg oral tablet 1 tablet, By Mouth, Daily, # 90 tablet, 0 Refills, Maintenance, 11/25/23 1:26:00 EDT, [facility], 163, cm, 07/10/23 13:16:00 EST, Height, 143, [...] 07/21/22 13:01:00 EST, Route to Pharmacy Electronically, [facility]/pharmacy #[id number], Partial fill upon patient request if the prescription is for a schedule II opioid drug... Start Date: 07/21/22 Status: Ordered norethindrone 5 mg oral tablet 5 mg, 1, tablet, By Mouth, Daily, # 90 tablet, Refills 4, Tot. Refills 4, Maintenance, 04/05/24 17:02:00 EDT, Route to Pharmacy Electronically, [facility]/pharmacy #[id number], Partial fill upon patient request [...] Team Personnel Name: Swathi Steinberg RN Position: [facility] RN Member Role: Primary Care Nurse Name: Joanne Wright RN Position: [facility] RN Member Role: Primary Care Nurse Name: Fernando William DO Position: [facility] Physician (General Medicine) Member Role: PCP Address: Address: [address] [place] [phone] Name: Marie Jimenez RN, I Position: S RN Member Role: Primary Care Nurse Care Team Related Persons Name: ROBERTO SUE Address: [address] [address] Name: KATIANA KNOX Address: [place] [address] Name: PREETI COONEY Name: BHARGAV OSBORNE Address: home [address] [place] [address]
--- OUTSIDE RECORDS SUMMARY | 2024-07-19 10:47 | XMS_ITS | Continuity of Care Document ---
Author Organization [facility] Address [address] [place] [address]- Care Team Providers Care Cafeteria Clerk Name Role Phone Nataliia Fernando CARLSON Primary Care Physician Encounter [facility] Date(s): 02/29/24 - 03/30/[address] [address] Attending Physician: Freida Phan Admitting Physician: Freida Phan Referring Physician: trFreida Referring Physician: Venice Solano Allergies, Adverse Reactions, [...] 12/12/19 13:53:00 EDT, Route to Pharmacy Electronically, [facility], 164, cm, 11/03/19 13:54:00 EDT, Height, 122.4, kg, 07/03/19 23:45:00 EST, Dry Weight Start Date: 12/12/19 Status: Ordered levothyroxine 0.2 mg oral tablet 1 tablet, By Mouth, Daily, # 90 tablet, 0 Refills, Maintenance, 11/25/23 1:26:00 EDT, [facility] STORE 05500, 163, cm, 07/10/23 13:16:00 EST, Height, 143, [...] tablet, 1 Refills, Maintenance, 10/19/23 13:05:00 EST, [facility]/pharmacy #[id number], Partial fill upon patient request if the prescription is for a schedule II opioid drug., 163, cm, 07/10... Start Date: 10/19/23 Status: Ordered norethindrone 5 mg oral tablet 10 mg, 2, tablet, By Mouth, Daily, # 60 tablet, Refills 0, Tot. Refills 0, Maintenance, 07/21/22 13:01:00 EST, Route to Pharmacy Electronically, [id number], Partial fill upon patient request [...] Team Personnel Name: Swathi Steinberg RN Position: [facility] RN Member Role: Primary Care Nurse Name: Joanne Wright RN Position: [facility] RN Member Role: Primary Care Nurse Name: Fernando William DO Position: [facility] Physician (General Medicine) Member Role: PCP Address: Address: [address] [place] [address] [place] [address]- Name: Marie Jimenez RN, I Position: [facility] RN Member Role: Primary Care Nurse Care Team Related Persons Name: ROBERTO SUE Address: home [address] [place] [address] Name: KATIANA KNOX Address: [place] [address] Name: PREETI COONEY Name: BHARGAV OSBORNE Address: home [address] [place] [phone]
--- OUTSIDE RECORDS SUMMARY | 2024-07-19 10:47 | XMS_ITS | Continuity of Care Document ---
Author Organization [facility] Address [address] [place] [address]- Care Team Providers Care Denture Model Maker Name Role Phone Nataliia CARLSON Fernando Dolores Primary Care Physician Encounter [facility] Date(s): 02/02/23 - 04/15/23 [facility] [address] [place] [address]- Attending Physician: Ramona Quintero Allergies, Adverse Reactions, [...] 12/12/19 13:53:00 EDT, Route to Pharmacy Electronically, [id number], 164, cm, 11/03/19 13:54:00 EDT, Height, 122.4, kg, 07/03/19 23:45:00 EST, Dry Weight Start Date: 12/12/19 Status: Ordered levothyroxine 0.2 mg oral tablet 1 tablet = 200 mcg, By Mouth, Daily, # 30 tablet, 11 Refills, Maintenance, 09/19/22 10:53:00 EST, Tablet, [facility]/pharmacy #[id number], Partial fill upon patient request if [...] EST, Route to Pharmacy Electronically, [facility]/pharmacy #[id number], Partial fill upon patient request if [...] Team Personnel Name: Swathi Steinberg RN Position: [facility] RN Member Role: Primary Care Nurse Name: Joanne Wright RN Position: S RN Member Role: Primary Care Nurse Name: Fernando William DO Position: [facility] Physician (General Medicine) Member Role: PCP Address: Address: [address] [place] [address] Name: Marie Jimenez RN, I Position: [facility] RN Member Role: Primary Care Nurse Care Team Related Persons Name: ROBERTO SUE Address: [address] [address] Name: CORINE BERUMEN Address: [place], [place] Name: KATIANA KNOX Address: [place] [address] Name: PREETI COONEY Name: BHARGAV OSBORNE Address: [address] [address]
[2024-07-19 10:48] LABS: Basophils Percent Auto 0.3 % (0-2); Eosinophils Absolute Auto 0.1 X10*3/uL (0.0-0.4); Eosinophils Percent Auto 0.7 % (0-4); Hematocrit 33.1 % (37.0-47.0); Hemoglobin 11.1 g/dl (12.0-16.0); Imm Gran Abs Auto 0.07 X10*3/uL (0.00-0.03); Imm Gran Pct Auto 0.5 % (0.0-0.4); Lymphocytes Absolute Auto 2.5 X10*3/uL (1.2-4.9); Lymphocytes Percent Auto 18.1 % (20-40); Mean Corpuscular HGB Conc 33.5 g/dl (31.0-35.0); Mean Corpuscular Hemoglobin 26.2 pg (27.0-33.0); Mean Corpuscular Volume 78.1 fL (80.0-98.0); Mean Platelet Volume 10.6 fL (9.4-12.3); Neutrophils Absolute Auto 10.1 x10*3/uL (2.0-8.3); Neutrophils Percent Auto 73.4 % (45-73); Platelet Count 328 X10*3/uL (160-400); Red Blood Count 4.24 X10*6/uL (4.20-5.50); White Blood Count 13.8 X10*3/uL (4.8-10.8)
[2024-07-19 11:11] LABS: Alanine Aminotransferase 15 U/L (0-31); Albumin Level 3.8 g/dL (3.5-5.0); Anion Gap 12 (12-20); Aspartate Amino Transferase 14 U/L (5-31); Bilirubin Total 0.3 mg/dL (0.0-1.0); Blood Urea Nitrogen 12 mg/dL (9-16); Calcium 9.2 mg/dL (8.4-10.2); Carbon Dioxide 25 mmol/L (22-29); Chloride 102 mmol/L (96-108); Creatinine Clr Calc Pharmacy 122.3; Estimated Glomerular Filt Rate > 60; Glucose Random 135 mg/dL (60-115); Lipase 14 U/L (8-78); Magnesium 2.1 mg/dL (1.6-2.6); Potassium 3.2 mmol/L (3.3-5.1); Sodium 136 mmol/L (135-145); Total Protein 6.6 g/dL (6.5-8.0)
[2024-07-19 11:34] LABS: Alkaline Phosphatase 59 U/L (39-117)
[2024-07-19 15:22] VITALS: BP 147/87; PULSE 70; RESP 18; TEMP 36.9; O2SAT 98
[2024-07-19 16:16] LABS: Appearance Urine Clear; Color Urine Yellow; Glucose Urine UA Negative (Negative); Leukocyte Esterase Urine Trace (Negative); Nitrite Urine Negative (Negative); Specific Gravity - Urine 1.025 (1.005-1.025); UMIC TRIGGER UACC YES; Urine Blood Large (3+) (Negative); Urine Ketones 40 mg/dL (Negative); Urine Protein 30 (1+) mg/dL (Neg-Trace)
[2024-07-19 16:18] LABS: Bacteria Urine None Seen (None Seen); Hyaline Casts Urine 0-2 /LPF (0-2); RBC Urine >20 /HPF (0-2); WBC Urine 0-5 /HPF (0-5)
--- NOTE | 2024-07-19 16:43 | ED.ABDPAIN ---
HPI - Abdominal Pain General Chief Complaint: Abdominal Pain Stated Complaint: Constipation Time Seen by Provider: 07/19/24 16:22 Source: patient Mode of arrival: ambulatory Limitations: no limitations History of Present Illness ED Provider: beth REID narrative: Patient with history of IBS used to be on Linzess unable to get least once for last 2 months since then been constipated been to multiple hospitals last ER visit was 4 days ago at [facility] tried multiple stool softener without much relief no nausea no vomiting no abdominal distention Related Data Home Medications ?Medication ?Instructions ?Recorded ?Confirmed alprazolam 0.5 mg tablet 0.5 - 1 mg PO DAILY 05/13/21 07/27/23 carvedilol 25 mg tablet 25 mg PO BID 05/13/21 07/27/23 chlorthalidone 25 mg tablet 25 mg PO DAILY 05/13/21 07/27/23 tramadol 50 mg tablet 50 mg PO TID PRN Pain 05/13/21 07/27/23 valsartan 160 mg tablet 160 mg PO BID 05/13/21 07/27/23 albuterol sulfate 90 mcg/actuation 0 mcg inhalation 09/24/21 07/27/23 aerosol inhaler ibuprofen 800 mg tablet 800 mg PO TID 09/24/21 07/27/23 fluticasone propionate 50 spray intranasal 04/09/22 07/27/23 mcg/actuation nasal spray,suspension cetirizine 10 mg tablet 10 mg PO DAILY 05/28/22 07/27/23 blood sugar diagnostic (FreeStyle #10 ea 11/20/22 07/27/23 Lite Strips) cyclobenzaprine 10 mg tablet 10 mg PO TID 11/20/22 07/27/23 levothyroxine 200 mcg tablet 250 mcg PO DAILY 11/20/22 07/27/23 budesonide-formoterol HFA 160 2 puff inhalation BID 05/20/23 07/27/23 mcg-4.5 mcg/actuation aerosol inhaler (Symbicort) docusate sodium 100 mg capsule 100 mg PO BID 05/12/24 glycerin (adult) supp AL 05/12/24 semaglutide 2 mg/dose (8 mg/3 mL) mg subcut 05/12/24 subcutaneous pen injector (Ozempic) Previous Rx's ?Medication ?Instructions ?Recorded famotidine 20 mg tablet 20 mg PO BEDTIME #30 tabs 11/20/22 rabeprazole 20 mg tablet,delayed 20 mg PO BID 30 days #60 tabs 11/20/22 release (AcipHex) zolpidem 10 mg tablet 10 mg PO BEDTIME PRN sleep/ for 07/27/23 sleep study #2 tabs hydrocortisone 2.5 % topical cream 1 appl AL BID hemorrhoids 30 days 10/20/23 with perineal applicator #30 grams (Proctosol HC) linaclotide 290 mcg capsule 290 mcg PO QAM 30 days #30 caps 05/02/24 (Linzess) plecanatide 3 mg tablet (Trulance) 3 mg PO DAILY #30 tabs 05/03/24 bisacodyl 10 mg rectal suppository 10 mg AL DAILY PRN constipation 05/12/24 #30 ea bisacodyl 5 mg tablet,delayed 10 mg (2 x 5 mg) PO BEDTIME 30 05/12/24 release (Dulcolax (bisacodyl)) days #60 tabs lubiprostone 24 mcg capsule 24 mcg PO BID 30 days #60 caps 06/29/24 (Amitiza) polyethylene glycol 3350 17 17 g PO DAILY #510 grams 07/19/24 gram/dose oral powder (Miralax) sennosides 8.6 mg tablet (Senna 17.2 mg (2 x 8.6 mg) PO BEDTIME 07/19/24 Laxative) PRN constipation #20 tabs Allergies Allergy/AdvReac Type Severity Reaction Status Date / Time bee pollen [BEE STINGS] Allergy Severe ANAPHYLAXIS Verified 07/19/24 10:17 acetaminophen [From TYLENOL] Allergy Intermediate HIVES Verified 07/19/24 10:17 divalproex sodium [Depakote] Allergy Unknown unsure Verified 07/19/24 10:17 Review of Systems Review of Systems Yes all other systems are reviewed and are negative PMFSH Past Medical History Medical History Non-compliance with treatment Asthma Restrictive lung disease secondary to obesity Sleep apnea Arthritis Anxiety Asthma HTN (hypertension) Fibromyalgia Bipolar 1 disorder Endometriosis Borderline personality disorder Epigastric pain GERD (gastroesophageal reflux disease) Chronic constipation Surgical History Hx of hemorrhoidectomy History of tonsillectomy History of myringotomy Social History Social History Alcohol intake: unknown Comment: cramping improved Patient Tobacco Use Status: Former Tobacco user Years Smoked: 2018 Smoked in Last 30 Days: No Use of substances other than those prescribed or required for medical reasons: Yes 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 Oriented X3. No acute distress. Obese Eyes: No pallor or icterus ENT: Pharynx normal. Oral Mucosa moist Neck: Normal inspection. Neck supple. CVS: Normal heart rate and rhythm. Pulses normal. Respiratory: No respiratory distress. Equal air entry bilateral, no wheezing/rales/rhonchi Abdomen: Soft and nontender. Bowel sounds are present, no mass palpable, no CVA tenderness rectal: Soft stool brown in color Skin: Skin warm and dry. Normal skin color. Normal skin turgor. Extremities: No lower extremity edema. No calf tenderness Neuro: Oriented X 3. Medical Decision Making Medical Decision Making MDM Narrative: Patient has had a good bowel movement after soapsuds enema now started coughing and forcefully vomited 1 time feel that she is dehydrated very anxious asking for IV fluids After IV hydration patient is feeling much better discharge patient home on senna and MiraLax Lab Data [facility] Lab Attestation statement: I reviewed the patient's lab results. 07/19/24 10:38 07/19/24 10:38 Labs: Lab Results 07/19/24 07/19/24 Range/Units 10:38 16:09 WBC 13.8 H (4.8-10.8) X10*3/uL RBC 4.24 (4.20-5.50) X10*6/uL Hgb 11.1 L (12.0-16.0) g/dl Hct 33.1 L (37.0-47.0) % MCV 78.1 L (80.0-98.0) fL MCH 26.2 L (27.0-33.0) pg MCHC 33.5 (31.0-35.0) g/dl RDW 16.0 (11.0-16.0) % Plt Count 328 (160-400) X10*3/uL MPV 10.6 (9.4-12.3) fL Immature Gran % (Auto) 0.5 H (0.0-0.4) % Neut % (Auto) 73.4 H (45-73) % Lymph % (Auto) 18.1 L (20-40) % [place] % (Auto) 7.0 (2-11) % Eos % (Auto) 0.7 (0-4) % Baso % (Auto) 0.3 (0-2) % Lymph # (Auto) 2.5 (1.2-4.9) X10*3/uL [place] # (Auto) 1.0 (0.1-1.2) X10*3/uL Eos # (Auto) 0.1 (0.0-0.4) X10*3/uL Baso # (Auto) 0.0 (0.0-0.2) X10*3/uL Abs Immat Gran (auto) 0.07 H (0.00-0.03) X10*3/uL Absolute Neuts (auto) 10.1 H (2.0-8.3) x10*3/uL Absolute Nucleated RBC 0.000 (0.0-0.012) X10*3/uL Nucleated RBC % (auto) 0.0 (0.0-0.2) /100WBC Sodium 136 (135-145) mmol/L Potassium 3.2 L (3.3-5.1) mmol/L Chloride 102 (96-108) mmol/L Carbon Dioxide 25 (22-29) mmol/L Anion Gap 12 (12-20) BUN 12 (9-16) mg/dL Creatinine 0.72 (0.5-1.4) mg/dL Estim Creat Clear Calc 122.3 Estimated GFR > 60 Random Glucose 135 H (60-115) mg/dL Calcium 9.2 (8.4-10.2) mg/dL Magnesium 2.1 (1.6-2.6) mg/dL Total Bilirubin 0.3 (0.0-1.0) mg/dL AST 14 (5-31) U/L ALT 15 (0-31) U/L Alkaline Phosphatase 59 (39-117) U/L Total Protein 6.6 (6.5-8.0) g/dL Albumin 3.8 (3.5-5.0) g/dL Lipase 14 (8-78) U/L Urine Color Yellow Urine Appearance Clear Urine pH 7.0 (5.0-9.0) Ur Specific Mchenry 1.025 (1.005-1.025) Urine Protein 30 (1+) H (Neg-Trace) mg/dL Urine Glucose (UA) Negative (Negative) mg/dL Urine Ketones 40 (Negative) mg/dL Urine Blood Large (3+) H (Negative) Urine Nitrite Negative (Negative) Ur Leukocyte Esterase Trace H (Negative) Urine RBC >20 H (0-2) /HPF Urine WBC 0-5 (0-5) /HPF Ur Squamous Epith Cells 3-5 (0-2) /HPF Urine Bacteria None Seen (None Seen) Hyaline Casts 0-2 (0-2) /LPF Independent Interpretation I performed an independent interpretation of an: Plain X-Ray Radiology Impression Discussion of test interpretation with radiology: I have reviewed the radiologist's reading. Medications Administered Discontinued Medications Generic Name Dose Route Start Last Admin Trade Name Garciaq PRN Reason Stop Dose Admin Bisacodyl 10 mg 07/19/24 16:40 07/19/24 17:14 Bisacodyl 5 Mg Tablet.Dr PO 07/19/24 16:41 10 mg ONCE ONE Administration Sodium Chloride 1,000 mls @ 999 mls/hr 07/19/24 19:06 07/19/24 20:15 Ns IV 07/19/24 20:06 Infused .Q1H1M ONE Infusion Magnesium Hydroxide 30 ml 07/19/24 16:41 07/19/24 17:14 Milk Of Magnesia 30 Ml Oral.Susp PO 07/19/24 16:42 30 ml ONCE ONE Administration Ondansetron HCl 4 mg 07/19/24 18:31 07/19/24 18:39 Ondansetron Odt 4 Mg Tab.Rapdis TRANSLINGU 07/19/24 18:32 4 mg ONCE ONE Administration Ondansetron HCl 4 mg 07/19/24 19:05 07/19/24 19:11 Ondansetron Hcl 4 Mg/2 Ml Vial IVPUSH 07/19/24 19:06 4 mg ONCE ONE Administration Discharge Plan Discharge Clinical Impression: Chronic constipation Patient Disposition: Home, Self-Care Instructions: Constipation (ED) Additional Instructions: Drink MiraLax daily Take Senna also daily Follow up with your PCP/support group manager Prescriptions: New polyethylene glycol 3350 [Miralax] 17 gram/dose powder 17 g PO DAILY Qty: 510 0RF sennosides [Senna Laxative] 8.6 mg tablet 17.2 mg PO BEDTIME PRN (Reason: constipation) Qty: 20 0RF No Action hydrocortisone [Proctosol HC] 2.5 % cream with perineal applicator 1 appl AL BID 30 Days Qty: 30 3RF Linzess 290 mcg capsule 290 mcg PO QAM 30 Days Qty: 30 6RF Trulance 3 mg tablet 3 mg PO DAILY Qty: 30 3RF lubiprostone [Amitiza] 24 mcg capsule 24 mcg PO BID 30 Days Qty: 60 6RF valsartan 160 mg tablet 160 mg PO BID carvedilol 25 mg tablet 25 mg PO BID chlorthalidone 25 mg tablet 25 mg PO DAILY tramadol 50 mg tablet 50 mg PO TID PRN (Reason: Pain) alprazolam 0.5 mg tablet 0.5 - 1 mg PO DAILY fluticasone propionate 50 mcg/actuation spray,suspension intranasal cetirizine 10 mg tablet 10 mg PO DAILY albuterol sulfate 90 mcg/actuation HFA aerosol inhaler 0 mcg inhalation ibuprofen 800 mg tablet 800 mg PO TID levothyroxine 200 mcg tablet 250 mcg PO DAILY cyclobenzaprine 10 mg tablet 10 mg PO TID (DME) FreeStyle Lite Strips Strip See Rx Instructions .ROUTE DAILY Qty: 10 Rx Instructions: As directed rabeprazole [AcipHex] 20 mg tablet,delayed release (DR/EC) 20 mg PO BID 30 Days Qty: 60 6RF famotidine 20 mg tablet 20 mg PO BEDTIME Qty: 30 6RF Rx Instructions: take one tablet on empty stomach at bedtime zolpidem 10 mg tablet 10 mg PO BEDTIME PRN (Reason: sleep/ for sleep study ) Qty: 2 0RF budesonide-formoterol [Symbicort] 160-4.5 mcg/actuation HFA aerosol inhaler 2 puff inhalation BID docusate sodium 100 mg capsule 100 mg PO BID glycerin (adult) Suppository AL Ozempic 2 mg/dose (8 mg/3 mL) pen injector subcut bisacodyl [Dulcolax (bisacodyl)] 5 mg tablet,delayed release (DR/EC) 10 mg PO BEDTIME 30 Days Qty: 60 3RF bisacodyl 10 mg suppository 10 mg AL DAILY PRN (Reason: constipation) Qty: 30 3RF Interventions: ED Discharge Assessment Last Done: 07/19/24 20:36 Discharge Date/Time: 07/19/24 20:45 Print Language: Salvadorean
[2024-07-19] MEDS: Milk of Magnesia 30 ML ORAL.SUSP PO (17:14)
[2024-07-19] MEDS: bisacodyL 5 MG TABLET.DR 10 MG PO (17:14)
--- NOTE | 2024-07-19 17:49 | PC.NURSE ---
Soap suds enema administered Pt tolerated treatment well. Entire enema bag taken and Pt is now holding solution in. Bedside commode available for when Pt feels the need for a BM.
--- NOTE | 2024-07-19 18:08 | PC.NURSE ---
Pt on bedside commode. Report (+) movement of her bowels and is feeling nauseous. Large amount of loose stool noted to commode. Pt is dry heaving frequently. 20g placed to RAC
[2024-07-19] MEDS: Ondansetron ODT 4 MG TAB.RAPDIS TRANSLINGU (18:39)
[2024-07-19] MEDS: ondansetron HCL 4 MG/2 ML VIAL IVPUSH (19:11)
[2024-07-19] MEDS: 0.9 % Sodium Chloride 1,000 ML 999 ML IV (19:12)
[2024-07-19 20:28] VITALS: BP 129/71; PULSE 76; RESP 16; O2SAT 98
[2024-07-19 20:36] VITALS: BP 129/71; PULSE 66; RESP 18; TEMP 36.9; O2SAT 95
== END 2024-07-19 20:45 | disposition home or self-care (01) ==
PROVIDERS: Emergency Provider Internal Medicine; PCP Internal Medicine
DX: R10.9 Unspecified abdominal pain (principal); K59.00 Constipation, unspecified; R11.2 Nausea with vomiting, unspecified; Z87.891 Personal history of nicotine dependence; Z79.899 Other long term (current) drug therapy
CPT/HCPCS: 36415; 74018; 80053; 81001; 83690; 83735; 85025; 93005; 96361; 96374; 99284; 99285; J2405

== ENCOUNTER → 2024-07-19 10:23 | Outpatient (BNV) | payer OTHER, SELFPAY | PROVIDERS: Emergency Provider Internal Medicine; PCP Internal Medicine; Visit Provider Internal Medicine | DX: R11.10 Vomiting, unspecified (principal) | CPT/HCPCS: 93010 ==

== ENCOUNTER 2024-07-29 14:15 | Outpatient (AMB) | payer OTHER, SELFPAY ==
[2024-07-29 14:18] VITALS: BP 108/74; PULSE 82; O2SAT 99; BMI 41.5
--- NOTE | 2024-07-29 14:18 | A.OFFVIS_ITS ---
Vital Signs 07/29/24 14:18 Height 5 ft 4 in Weight 241 lb 10.026 oz BMI 41.5 BP 108/74 Blood Pressure Location Rt brachial Position Sitting Pulse 82 Pulse Source Pulse Oximeter Pulse Oximetry (%) 99 Oxygen Delivery Method Room Air Intake Visit Reasons: follow up ER/constipation, November's PT Intake Note: ESTABLISHED PATIENT Sandy presents in office today for a scheduled ER FUV. Pt typically sees AB Meds reviewed? Y Allergies reviewed? Y No recent surgeries? None. Pt seen via our ED. Any significant concerns or new changes? Pt started ozempic within 6 mos. Pt had linzess to begin with and had no issues with their bowels. Pt no longer has acce ss to the linzess and has been trying to take ozempic every 10 days to see if there would be any improvement, no changes noted to this point. Pharmacy verified? [facility] Mainframe Programmer Analyst Required: No Allergies bee pollen [BEE STINGS] Allergy (Severe, Verified 08/04/24 13:14) ANAPHYLAXIS acetaminophen [From TYLENOL] Allergy (Intermediate, Verified 08/04/24 13:14) HIVES divalproex sodium [Depakote] Allergy (Unknown, Verified 08/04/24 13:14) unsure HPI HPI follow up ER/constipation, November's PT: Details: LAST VISIT 05/12/2024 WITH MYRA WHITLOCK Plan She has been working hard to lose 50 lbs. She goes to swim therapy and is now on Ozempic. She is NOT MOVING HER BOWELS AT ALL!! 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 This is causing her a great deal of anxiety, and when she tried to self advocate they sent psych to her doors. Her [facility] nurse is also not advocating for her so this is frustrating. The insurance is giving our office a hard time and they are saying they will take 30 days to process our appeal. We are pushing hard for her and this is very harmful to her entire therapeutic situation putting her at risk for SBO and/or mental health setbacks. FOr now she will continue Trulance and we will add both bisacodyl tablets qhs and bisacodyl supps. I will get a abd xr to eval stool burden. ROV 2 weeks. Medications: New bisacodyl (Dulcolax (bisacodyl)) 10 mg (2 x 5 mg) PO BEDTIME 60 tabs 3RF 30 days K59.09 - Other constipation bisacodyl 10 mg NC DAILY PRN 30 ea 3RF constipation K59.09 - Other constipation TODAY'S VISIT Patient is here today for requested visit. Her GI provider is out and patient requested to be seen after ED visit. Patient continues to have trouble with refilling her Linzess. She reports that she is struggling with bowel movements. Reports abdominal pain and cramping. Patient reports that she has been trying [id number] supplements without much of improvement. Insurance will need 60 day overlap before authorizing the Linzess. Patient is reporting epigastric pain and reflux with almost anything that she eats. Patient reports that reflux sometimes worse at night time. Patient reports dyspepsia without dysphagia or odynophagia. Currently she is not taking any PPI or H2 dane. Patient denies eating late at night. She is continuing on Ozempic every 10 days or so trying to spread out as her symptoms of constipation most likely are related to taking Ozempic. Patient denies any nausea or vomiting. Denies melena, hematochezia, unintentional weight loss or ribbon like stools. [facility] Medical History (Updated 08/22/24 @ 08:51 by Claribel Rivera, DIRECTOR OF CONVENTION SERVICES-) Hemorrhoids with complication Non-compliance with treatment Asthma Restrictive lung disease secondary to obesity Sleep apnea Arthritis Anxiety Asthma HTN (hypertension) Fibromyalgia Bipolar 1 disorder Endometriosis Borderline personality disorder Epigastric pain GERD (gastroesophageal reflux disease) Chronic constipation Surgical History Hx of hemorrhoidectomy History of tonsillectomy History of myringotomy Social History Alcohol intake: unknown Comment: cramping improved Patient Tobacco Use Status: Former Tobacco user Years Smoked: 2018 Substance Use Type: Marijuana Review of Systems Const Denies weight gain and Denies weight loss ENT Reports no additional complaints, Denies dysphagia and Denies odynophagia Card Reports no additional complaints Resp Reports no additional complaints GI Reports abdominal pain, Denies belching, Denies melena, Reports bloating, Denies change in bowel habits, Reports constipation, Denies dysphagia, Denies excessive flatus, Denies dyspepsia, Reports heartburn, Denies diarrhea, Denies loose stools, Denies nausea, Denies odynophagia and Denies vomiting Reports no additional complaints Musc Reports no additional complaints Neuro Reports no additional complaints Psych Reports no additional complaints Endo Reports no additional complaints Physical Exam Vital Signs: Last Vital Signs Pulse 82 07/29/24 14:18 BP 108/74 07/29/24 14:18 Pulse Ox 99 07/29/24 14:18 Oxygen Delivery Method Room Air 07/29/24 14:18 BMI result Body Mass Index 41.5 Const General: healthy appearing and no acute distress Nutritional Appearance: obese Orientation/consciousness: patient oriented x3 Resp Effort & Inspection: normal respiratory effort, able to speak in complete sente nces, no tracheal deviation and symmetric chest movement Auscultation: clear to auscultation bilaterally Cardio Rate: regular rate GI Inspection: Yes normal to inspection, No distended and Yes obesity Palpation (GI): Soft to palpation, not firm, nontender and No hepatosplenomegaly present Auscultation: normal bowel sounds General: Yes no CVA tenderness Back/Spine/Pelvis Back: no CVA tenderness Skin General skin exam: elasticity normal, turgor normal and dry skin Neuro General: patient oriented x3 Psych Appearance: grossly normal Mental Status: mental status grossly normal Assessment & Plan Assessment & Plan (1) Chronic constipation: Code(s): K59.09 - Other constipation Category: Medical (2) GERD (gastroesophageal reflux disease): Code(s): K21.9 - Gastro-esophageal reflux disease without esophagitis Category: Medical Qualifiers: Esophagitis presence: esophagitis presence not specified Qualified Code(s): K21.9 - Gastro-esophageal reflux disease without esophagitis (3) Hemorrhoids: Code(s): K64.9 - Unspecified hemorrhoids Category: Medical Qualifiers: Hemorrhoid type: unspecified Qualified Code(s): K64.9 - Unspecified hemorrhoids Plan Patient will continue taking Dulcolax. Script for magnesium citrate given to patient., Anusol script sent to pharmacy. Patient reports worsening reflux. Avoid dietary triggers and late night snacking. Upper GI with barium swallow ordered. Patient will start Nexium in the morning. Patient will follow-up in 3 months, sooner on as needed basis. She is agreeable to this plan and verbalizes understanding of instructions. She was given the opportunity to ask questions and all questions answered. Thank you for allowing me to participate in her care Orders: Orders [place] upper GI w Ba Swallow 07/29/24 K21.9 - Gastro-esophageal reflux disease without esophagitis Referrals MANAGER ARCHITECTURE Referral N80.9 - Endometriosis, unspecified Medications: New magnesium citrate (Citrate of Magnesia oral) 150 mL PO DAILY PRN 296 mL 5RF constipation K59.00 - Constipation, unspecified linaclotide (Linzess) 290 mcg PO QAM 30 caps 4RF K59.00 - Constipation, unsp ecified esomeprazole magnesium (Nexium) 40 mg PO DAILY 30 caps 5RF K21.9 - Gastro- esophageal reflux disease without esophagitis hydrocortisone 2.5% (Anusol-HC) use as directed 1 appl NC BID-QID PRN 30 grams 3RF hemorrhoids K64.9 - Unspecified hemorrhoids Coding Level of Care Code Est Pt Level 4 (38272) Complex EM visit Add On G2211 Diagnoses Chronic constipation K59.09 Gastroesophageal reflux disease, unspecified whether esophagitis present K21.9 Esophagitis presence: esophagitis presence not specified Hemorrhoids, unspecified hemorrhoid type K64.9 Hemorrhoid type: unspecified Time Spent (min) 40 Comment 25 minutes spent with patient and additional 15 minutes spent reviewing her records
--- OUTSIDE RECORDS SUMMARY | 2024-08-03 10:18 | XMS_ITS | Clinical Summary ---
Author Organization Unknown Care Team Providers Care Building Materials Sales Attendant Name Role Phone OSKAR WILDER, ROXANA Unavailable Moon UMANA RN, JAMES Unavailable Unavailable Payers Payer Name Policy Type Policy Number Effective Date Expira tion Date [facility] [place] [id number] MEDICAID [facility] [id number] MEDICARE - [facility] - [place] [id number] Problems Condition Name Condition Details Condition Category Status Onset Date Resolution Date Last Treatment Date Treating Clinician Comments BIPOLAR DISORDER, UNSPECIFIED Active 01-20 00:00: 00 HYPERLIPIDEM IA, UNSPECIFIED Active 01-19 00:00: 00 FIBROMYALGIA Active 01-19 00:00: 00 TYPE 2 DIABETES MELLITUS WITH HYPERGLYCEMI A Active 01-19 00:00: 00 MILD PERSISTENT ASTHMA WITH (ACUTE) EXACERBATION Active 01-19 00:00: 00 ENDOMETRIOSI S OF THE UTERUS, UNSPECIFIED Active 01-19 00:00: 00 SEDATIVE, HYPNOTIC OR ANXIOLYTIC DEPENDENCE, UNCOMPLICATE D Active 01-19 00:00: 00 CHRONIC PAIN SYNDROME Active 01-19 00:00: 00 CHRONIC OBSTRUCTIVE PULMONARY DISEASE, UNSPECIFIED Active 01-19 00:00: 00 POLYNEUROPAT HY, UNSPECIFIED Active 01-19 00:00: 00 HYPERTENSIVE HEART DISEASE WITHOUT HEART FAILURE Active 01-19 00:00: 00 OPIOID DEPENDENCE, UNCOMPLICATE D Active 01-19 00:00: 00 POST-TRAUMAT IC STRESS DISORDER, UNSPECIFIED Active 01-26 00:00: 00 Allergies, Adverse Reactions, Alerts Allergy Name Allergy Type Status Severity Reaction(s) Onset Date Inactive Date Treating Clinician Comments MORPHINE Propensity to adverse reactions Active 01-24 14:43: 26 ACETAMINOPHE N Propensity to adverse reactions Active 01-24 14:45: 32 BEE STING BEE Propensity to adverse reactions Active 01-24 14:43: 41 Medications Ordered Medication Name Filled Medication Name Start Date Stop Date Current Medication? Ordering Clinician Indication Dosage Frequency Signature (SIG) Comments Components levothyroxi ne 200 mcg tablet 12-22 00:00: 00 Yes [id number] Per instruc tions EVERY DAY Per instructio ns EVERY DAY (route: oral) Med Classific ation: Endocrine gabapentin 600 mg tablet 12-29 00:00: 00 Yes [id number] Per instruc tions 3 TIMES A DAY Per instructio ns 3 TIMES A DAY (route: oral) Med Classific ation: Central Nervous System Agents tramadol 50 mg tablet 01-15 00:00: 00 Yes [id number] Per instruc tions NEEDED TWICE A DAY Per instructio ns NEEDED TWICE A DAY (route: oral) Med Classific ation: Analgesic , Anti-infl ammatory or Antipyret ic ibuprofen 800 mg tablet 01-15 00:00: 00 Yes [id number] Per instruc tions EVERY 8 HOURS NEEDED Per instructio ns EVERY 8 HOURS NEEDED (route: oral) Med Classific ation: Analgesic , Anti-infl ammatory or Antipyret ic alprazolam 0.5 mg tablet 01-16 00:00: 00 Yes [id number] Per instruc tions THREE TIMES A DAY NEEDED Per instructio ns THREE TIMES A DAY NEEDED (route: oral) Med Classific ation: Central Nervous System Agents Ibsrela 50 mg tablet 2023-08 00:00: 00 Yes [id number] 1 tablet 2 TIMES DAILY 1 tablet 2 TIMES DAILY (route: oral) Med Classific ation: Gastroint estinal Therapy Agents Immunizations Ordered Immunization Name Filled Immunization Name Date Status Comments Refusal Reason REFUSED FLU, PPV 2024-01-25 00:00:00 Vital Signs Vital Name Observation Time Observation Value Commen ts Temperature 2024-08-01 09:06:00.000 97.8 [degF] Pulse 2024-08-01 09:06:00.000 84 /min Respirations 2024-08-01 09:06:00.000 16 /min Systolic Blood Pressure 2024-08-01 09:06:00.000 116 mm [Hg] Diastolic Blood Pressure 2024-08-01 09:06:00.000 76 mm [Hg] Plan of Treatment Planned Activity Planned Date Details Comments Future Scheduled Test SKILLED NU RSE TO EVALUATE PATIENT, IDENTIFY PRIMARY AND CO-MORBID CONDITIONS CODED PER CODING GUIDELINES, AND DEVELOP PATIENT SPECIFIC PLAN OF CARE THAT INCLUDES PATIENT GOAL FOR HOME HEALTH. [code = SKILLED NURSE TO EVALUATE PATIENT, IDENTIFY PRIMARY AND CO-MORBID CONDITIONS CODED PER CODING GUIDELINES, AND DEVELOP PATIENT SPECIFIC PLAN OF CARE THAT INCLUDES PATIENT GOAL FOR HOME HEALTH.] Future Scheduled Test SKILLED NU RSE WILL MAINTAIN SITUATIONAL AWARENESS FOR SAFETY AND WILL NOTIFY CLINICAL DISPATCHER SERVICE OR WORK AND PHYSICIAN/PROVIDER WITH ANY CHANGE IN CONDITION. [code = SKILLED NURSE WILL MAINTAIN SITUATIONAL AWARENESS FOR SAFETY AND WILL NOTIFY CLINICAL DISPATCHER SERVICE OR WORK AND PHYSICIAN/PROVIDER WITH ANY CHANGE IN CONDITION.] Future Scheduled Test SKILLED NU RSE TO ASSESS PATIENTS PSYCHOSOCIAL STATUS TO IDENTIFY POTENTIAL ISSUES THAT MAY COMPLICATE THE PROVISION OF THE PLAN OF CARE INCLUDING THE PATIENTS ABILITY TO ACCESS COMMUNITY RESOURCES AND PSYCHOSOCIAL SUPPORT SERVICES. [code = SKILLED NURSE TO ASSESS PATIENTS PSYCHOSOCIAL STATUS TO IDENTIFY POTENTIAL ISSUES THAT MAY COMPLICATE THE PROVISION OF THE PLAN OF CARE INCLUDING THE PATIENTS ABILITY TO ACCESS COMMUNITY RESOURCES AND PSYCHOSOCIAL SUPPORT SERVICES.] Future Scheduled Test SKILLED NU RSE FOR O/A OF CLIENT'S CURRENT DEGREE OF HOPELESSNESS AND PROVIDE THERAPEUTIC INTERVENTIONS AND TEACHING DESIGNED TO ENHANCE THE CLIENT'S WELL BEING. [code = SKILLED NURSE FOR O/A OF CLIENT'S CURRENT DEGREE OF HOPELESSNESS AND PROVIDE THERAPEUTIC INTERVENTIONS AND TEACHING DESIGNED TO ENHANCE THE CLIENT'S WELL BEING.] Future Scheduled Test SKILLED NU RSE FOR O/A AND SKILLED TEACHING OF COPING SKILLS TO MANAGE ANXIETY AND MAINTAIN SAFETY. [code = SKILLED NURSE FOR O/A AND SKILLED TEACHING OF COPING SKILLS TO MANAGE ANXIETY AND MAINTAIN SAFETY.] Future Scheduled Test SKILLED NU RSE FOR O/A AND SKILLED TEACHING RELATED TO MANAGEMENT OF DEPRESSIVE SYMPTOMS AND/OR DEPRESSION. SN TO REPORT SIGNIFICANT CHANGE IN DEPRESSIVE SYMPTOMS TO CLINICAL PROVIDER FOR EARLY INTERVENTION. [code = SKILLED NURSE FOR O/A AND SKILLED TEACHING RELATED TO MANAGEMENT OF DEPRESSIVE SYMPTOMS AND/OR DEPRESSION. SN TO REPORT SIGNIFICANT CHANGE IN DEPRESSIVE SYMPTOMS TO CLINICAL PROVIDER FOR EARLY INTERVENTION.] Future Scheduled Test SKILLED NU RSE TO PERFORM HOME SAFETY AND FALL ASSESSMENT AND PROVIDE INSTRUCTION TO IMPLEMENT HOME SAFETY AND FALL PREVENTION STRATEGIES. [code = SKILLED NURSE TO PERFORM HOME SAFETY AND FALL ASSESSMENT AND PROVIDE INSTRUCTION TO IMPLEMENT HOME SAFETY AND FALL PREVENTION STRATEGIES.] Future Scheduled Test SKILLED NU RSE FOR OBSERVATION AND ASSESSMENT OF PATIENTS PAIN LEVEL AND EFFECTIVENESS OF PAIN MANAGEMENT REGIMEN. SKILLED NURSE TO INSTRUCT PATIENT/CAREGIVER REGARDING PHARMACOLOGIC AND NON-PHARMACOLOGIC PAIN CONTROL MEASURES. SKILLED NURSE TO REPORT TO PHYSICIAN IF PAIN IS UNCONTROLLED WITH CURRENT PAIN MANAGEMENT REGIMEN. [code = SKILLED NURSE FOR OBSERVATION AND ASSESSMENT OF PATIENTS PAIN LEVEL AND EFFECTIVENESS OF PAIN MANAGEMENT REGIMEN. SKILLED NURSE TO INSTRUCT PATIENT/CAREGIVER REGARDING PHARMACOLOGIC AND NON-PHARMACOLOGIC PAIN CONTROL MEASURES. SKILLED NURSE TO REPORT TO PHYSICIAN IF PAIN IS UNCONTROLLED WITH CURRENT PAIN MANAGEMENT REGIMEN.] Future Scheduled Test SKILLED NU RSE TO O/A OF PATIENTS MENTAL/BEHAVIORAL STATUS, ASSESS VITAL SIGNS WEEKLY ALLOW 2 PRNS FOR MEDICATION MANAGEMENT. [code = SKILLED NURSE TO O/A OF PATIENTS MENTAL/BEHAVIORAL STATUS, ASSESS VITAL SIGNS WEEKLY ALLOW 2 PRNS FOR MEDICATION MANAGEMENT.] Future Scheduled Test SKILLED NU RSE TO ADMINISTER MEDICATIONS WEEKLY AND PRE-POUR MEDICATIONS WEEKLY PER MEDICATION LIST. [code = SKILLED NURSE TO ADMINISTER MEDICATIONS WEEKLY AND PRE-POUR MEDICATIONS WEEKLY PER MEDICATION LIST.] Future Scheduled Test SKILLED NU RSE FOR O/A OF GENERAL HEALTH STATUS OF PAIN, CARDIAC, RESPIRATORY, GASTROINTESTINAL, GENITOURINARY, SKIN, NEUROLOGIC, ENDOCRINE SYSTEMS TO IDENTIFY CHANGES ASSOCIATED WITH EXACERBATION FOR EARLY INTERVENTION OF COMPLICATIONS WEEKLY [code = SKILLED NURSE FOR O/A OF GENERAL HEALTH STATUS OF PAIN, CARDIAC, RESPIRATORY, GASTROINTESTINAL, GENITOURINARY, SKIN, NEUROLOGIC, ENDOCRINE SYSTEMS TO IDENTIFY CHANGES ASSOCIATED WITH EXACERBATION FOR EARLY INTERVENTION OF COMPLICATIONS WEEKLY ] Future Scheduled Test SKILLED NU RSE TO PRE-POUR MEDICATION PER MEDICATION LIST WEEKLY [code = SKILLED NURSE TO PRE-POUR MEDICATION PER MEDICATION LIST WEEKLY ] Future Scheduled Test SKILLED NU RSE MAY PICKUP AND TRANSPORT MEDICATIONS [code = SKILLED NURSE MAY PICKUP AND TRANSPORT MEDICATIONS] Future Scheduled Test SKILLED NU RSE FOR O/A, TEACHING RELATED TO CHRONIC CONSTIPATION FOR EARLY IDENTIFICATION OF EXACERBATION OF DISEASE PROCESS. [code = SKILLED NURSE FOR O/A, TEACHING RELATED TO CHRONIC CONSTIPATION FOR EARLY IDENTIFICATION OF EXACERBATION OF DISEASE PROCESS.] Goal 2024-03-21 Patient Goal - DONT WANT TO BE IN PAIN Goal 2024-05-20 Patient Goal - DONT WANT TO BE IN PAIN Goal 2024-07-20 Patient Goal - DONT WANT TO BE IN PAIN Goal Patient Goal - DONT WANT TO BE IN PAIN Goal Provider Goal - A PLAN OF CARE WILL BE ESTABLISHED THAT MEETS PATIENT'S [facility] NEEDS AND INCLUDES PATIENT GOAL FOR HOME HEALTH. Goal Provider Goal - PATIENT WILL REMAIN SAFE IN THE COMMUNITY AND WILL BE FREE OF DANGER TO SELF AND OTHERS THROUGHOUT THE CERTIFICATION PERIOD. Goal Provider Goal - PSYCHOSOCIAL NEEDS WILL BE IDENTIFIED AND PLAN IMPLEMENTED TO MINIMIZE RISK THROUGHOUT CERTIFICATION PERIOD. Goal Provider Goal - PATIENT WILL VERBALIZE OWN ASSOCIATION OF FEELINGS OF HOPELESSNESS, AND 3 THERAPEUTIC TECHNIQUES TO DECREASE THESE FEELINGS BY THE END OF THIS CERTIFICATION. Goal Provider Goal - PATIENT WILL BE ABLE TO PERFORM DAILY FUNCTIONS AND HAVE OPTIMAL IMPROVEMENT IN LEVEL OF ANXIETY THROUGHOUT CERTIFICATION PERIOD. Goal Provider Goal - PATIENT WILL REMAIN SAFE WITHOUT DECOMPENSATION IN DEPRESSIVE CONDITION, WHILE MAINTAINING OPTIMAL LEVEL OF MENTAL HEALTH AND WELL BEING THROUGHOUT CERTIFICATION PERIOD. Goal Provider Goal - PATIENT/CAREGIVER WILL VERBALIZE/DEMONSTRATE EFFECTIVE HOME SAFETY AND FALL PREVENTION STRATEGIES THROUGHOUT CERTIFICATION PERIOD. Goal Provider Goal - PATIENT/CAREGIVER WILL DEMONSTRATE UNDERSTANDING OF PHARMACOLOGIC AND NONPHARMACOLOGIC PAIN CONTROL MEASURES AND PATIENT WILL HAVE IMPROVEMENT IN PAIN INTERFERING WITH ACTIVITY EVIDENCED BY PAIN CONTROLLED AT LEVEL OF 3 OUT OF 10 OR LESS BY END OF CERTIFICATION PERIOD. Goal Provider Goal - ALTERED MENTAL/BEHAVIORAL STATUS WILL BE IDENTIFIED PROMPTLY AND INTERVENTION INITIATED QUICKLY TO MINIMIZE ASSOCIATED RISKS THROUGHOUT CERTIFICATION PERIOD. Goal Provider Goal - PATIENT WILL COMPLY WITH MEDICATION WHEN SKILLED NURSE ADMINISTERS AND PRE-POURS MEDICATION THROUGHOUT CERTIFICATION PERIOD. Goal Provider Goal - CHANGE IN GENERAL HEALTH STATUS WILL BE IDENTIFIED AND REPORTED TO PHYSICIAN FOR PROMPT INTERVENTION TO MINIMIZE ASSOCIATED RISKS THROUGHOUT CERTIFICATION PERIOD. Goal Provider Goal - PATIENT WILL COMPLY WITH MEDICATION WHEN SKILLED NURSE PRE-POURS MEDICATION THROUGHOUT CERTIFICATION PERIOD. Goal Provider Goal - SKILLED NURSE PICKED UP AND TRANSPORTED MEDICATIONS FOR SAFETY. Goal Provider Goal - EXACERBATIONS OF CONSTPATION GASTROINTESTINAL DISEASE WILL BE PROMPTLY IDENTIFIED AND INTERVENTIONS IMPLEMENTED TO MINIMIZE RISKS TO PATIENT BY END OF EPISODE. Encounters Start Date/Time End Date/Time Encounter Type Admission Type Attending [facility] Care Facility Care Department Encounter ID Discharge Date Discharge Status Discharge Condition Discharge Reason Percent Goals Met 2024-01-25 00:00:00 2024-09-20 00:00:00 Outpatient RECERTIFIC JAMES WEBB [facility] [id number] 24.14
== END 2024-07-29 15:20 | disposition home or self-care (01) ==
PROVIDERS: PCP Internal Medicine; Visit Provider Nurse Practitioner Family
DX: K59.09 Other constipation (principal); K21.9 Gastro-esophageal reflux disease without esophagitis; K64.9 Unspecified hemorrhoids
CPT/HCPCS: 99214; G2211

== ENCOUNTER → 2024-07-29 14:15 | Outpatient (BNVA) | payer OTHER, SELFPAY | PROVIDERS: PCP Internal Medicine; Visit Provider Nurse Practitioner Family | DX: K59.09 Other constipation (principal); K21.9 Gastro-esophageal reflux disease without esophagitis; K64.9 Unspecified hemorrhoids | CPT/HCPCS: 99212 ==

== ENCOUNTER 2024-08-04 13:01 | Outpatient (AMB) | payer OTHER, SELFPAY ==
--- OUTSIDE RECORDS SUMMARY | 2024-08-04 13:04 | XMS_ITS | Clinical Summary ---
Author Organization Unknown Care Team Providers Care Solar Thermal Installer Name Role Phone OSKAR WILDER, ROXANA Unavailable Unavailanila UMANA RN, JAMES Unavailable Unavailable Payers Payer Name Policy Type Policy Number Effective Date Expira tion Date [facility] [place] [id number] MEDICAID [facility] [id number] MEDICARE - [facility]/[place] - [place] [id number] Problems Condition Name Condition Details Condition Category [...] 200 mcg tablet 12-22 00:00: 00 Yes [id number] Per instruc tions EVERY DAY Per instructio ns EVERY DAY (route: oral) Med Classific ation: Endocrine gabapentin 600 mg tablet 12-29 00:00: 00 Yes [id number] Per instruc tions 3 TIMES A DAY Per instructio ns 3 TIMES A DAY (route: oral) Med Classific ation: Central Nervous System Agents tramadol 50 mg tablet 01-15 00:00: 00 Yes [id number] Per instruc tions NEEDED TWICE A DAY Per instructio ns NEEDED TWICE A DAY (route: oral) Med Classific ation: Analgesic , Anti-infl ammatory or Antipyret ic ibuprofen 800 mg tablet 01-15 00:00: 00 Yes [id number] Per instruc tions EVERY 8 HOURS NEEDED Per instructio ns EVERY 8 HOURS NEEDED (route: oral) Med Classific ation: Analgesic , Anti-infl ammatory or Antipyret ic alprazolam 0.5 mg tablet 01-16 00:00: 00 Yes [id number] Per instruc tions THREE TIMES A DAY NEEDED Per instructio ns THREE TIMES A DAY NEEDED (route: oral) Med Classific ation: Central Nervous System Agents Ibsrela 50 mg tablet 2023-08 00:00: 00 Yes [id number] 1 tablet 2 TIMES DAILY 1 tablet [...] AWARENESS FOR SAFETY AND WILL NOTIFY CLINICAL RECYCLING SPECIALIST AND PHYSICIAN/PROVIDER WITH ANY CHANGE IN CONDITION. [code = SKILLED NURSE WILL MAINTAIN SITUATIONAL AWARENESS FOR SAFETY AND WILL NOTIFY CLINICAL RECYCLING SPECIALIST AND PHYSICIAN/PROVIDER WITH ANY CHANGE IN CONDITION.] [...] CARE WILL BE ESTABLISHED THAT MEETS PATIENT'S [facility] NEEDS AND INCLUDES PATIENT GOAL FOR HOME [...] End Date/Time Encounter Type Admission Type Attending [facility] Care Department Encounter ID Discharge Date Discharge Status Discharge Condition Discharge Reason Percent Goals Met 2024-01-25 00:00:00 2024-09-20 00:00:00 Outpatient RECERTIFIC JAMES WEBB [facility] [id number] 24.14
--- OUTSIDE RECORDS SUMMARY | 2024-08-04 13:04 | XMS_ITS | Clinical Summary ---
Author Organization Unknown Care Team Providers Care Saddle And Side Wire Stitcher Name Role Phone OSKAR WILDER, ROXANA Unavailable Unavailanila UMANA RN, JAMES Unavailable Unavailable Payers Payer Name Policy Type Policy Number Effective Date Expira tion Date [facility] [place] [id number] MEDICAID [facility] [id number] MEDICARE - [facility]/[place] [id number] Problems Condition Name Condition Details Condition Category [...] 200 mcg tablet 12-22 00:00: 00 Yes [id number] Per instruc tions EVERY DAY Per instructio ns EVERY DAY (route: oral) Med Classific ation: Endocrine gabapentin 600 mg tablet 12-29 00:00: 00 Yes [id number] Per instruc tions 3 TIMES A DAY Per instructio ns 3 TIMES A DAY (route: oral) Med Classific ation: Central Nervous System Agents tramadol 50 mg tablet 01-15 00:00: 00 Yes [id number] Per instruc tions NEEDED TWICE A DAY Per instructio ns NEEDED TWICE A DAY (route: oral) Med Classific ation: Analgesic , Anti-infl ammatory or Antipyret ic ibuprofen 800 mg tablet 01-15 00:00: 00 Yes [id number] Per instruc tions EVERY 8 HOURS NEEDED Per instructio ns EVERY 8 HOURS NEEDED (route: oral) Med Classific ation: Analgesic , Anti-infl ammatory or Antipyret ic alprazolam 0.5 mg tablet 01-16 00:00: 00 Yes [id number] Per instruc tions THREE TIMES A DAY NEEDED Per instructio ns THREE TIMES A DAY NEEDED (route: oral) Med Classific ation: Central Nervous System Agents Ibsrela 50 mg tablet 2023-08 00:00: 00 Yes [id number] 1 tablet 2 TIMES DAILY 1 tablet [...] AWARENESS FOR SAFETY AND WILL NOTIFY CLINICAL PHOSPHORIC ACID OPERATOR AND PHYSICIAN/PROVIDER WITH ANY CHANGE IN CONDITION. [code = SKILLED NURSE WILL MAINTAIN SITUATIONAL AWARENESS FOR SAFETY AND WILL NOTIFY CLINICAL PHOSPHORIC ACID OPERATOR AND PHYSICIAN/PROVIDER WITH ANY CHANGE IN CONDITION.] [...] CARE WILL BE ESTABLISHED THAT MEETS PATIENT'S LONG TERM NEEDS AND INCLUDES PATIENT GOAL FOR HOME [...] End Date/Time Encounter Type Admission Type Attending [facility] Care Facility Care Department Encounter ID Discharge Date Discharge Status Discharge Condition Discharge Reason Percent Goals Met 2024-01-25 00:00:00 2024-09-20 00:00:00 Outpatient RECERTIFIC JAMES WEBB [facility] [id number] 24.14
--- NOTE | 2024-08-04 13:07 | MHC.OFFVIS ---
Intake Visit Reasons: hemorroids Intake Note: Patient scheduled today's appointment for external hemorrhoids. Patient c/o: bleeding. Feels overwhelmed. Hx of previous treatments for hemorrhoids. Linzess is in process for insurance approval due to insurance change. C/o constipation. Taking Dulcolax, senna, suppository. 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 Required: No Accompanied by: Self / Same As Patient Allergies bee pollen [BEE STINGS] Allergy (Severe, Verified 08/04/24 13:14) ANAPHYLAXIS acetaminophen [From TYLENOL] Allergy (Intermediate, Verified 08/04/24 13:14) HIVES divalproex sodium [Depakote] Allergy (Unknown, Verified 08/04/24 13:14) unsure Medication List - Last Reconciled 08/04/24 by Romel Mcpherson MD albuterol sulfate 90 mcg/actuation 0 mcg inhalation albuterol sulfate mg inhalation alprazolam 0.5 - 1 mg PO DAILY bisacodyl (Dulcolax (bisacodyl)) 10 mg (2 x 5 mg) PO BEDTIME 30 days bisacodyl 10 mg DC DAILY PRN blood sugar diagnostic (FreeStyle Lite Strips) As directed budesonide-formoterol 160-4.5 mcg/actuation (Symbicort) 2 puffs inhalation BID carvedilol 25 mg PO BID cetirizine 10 mg PO DAILY chlorthalidone 25 mg PO DAILY cyclobenzaprine 10 mg PO TID docusate sodium 100 mg PO BID esomeprazole magnesium (Nexium) 40 mg PO DAILY famotidine 20 mg PO BEDTIME fluticasone propionate 50 mcg/actuation sprays intranasal glycerin (adult) supp DC hydrocortisone 2.5% (Anusol-HC) 1 appl DC BID-QID PRN hydrocortisone 2.5% (Proctosol HC) 1 appl DC BID 30 days ibuprofen 800 mg PO TID levothyroxine 175 mcg PO DAILY linaclotide (Linzess) 290 mcg PO QAM magnesium citrate (Citrate of Magnesia oral) 150 mL PO DAILY PRN omeprazole 20 mg PO DAILY polyethylene glycol 3350 (Miralax) 17 grams PO DAILY semaglutide (Ozempic) mg subcut sennosides (Senna Laxative) 17.2 mg (2 x 8.6 mg) PO BEDTIME PRN sucralfate mL PO tenapanor (Ibsrela) 50 mg PO BID tramadol 50 mg PO TID PRN valsartan 160 mg PO BID zolpidem 10 mg PO BEDTIME PRN HPI HPI hemorroids: Details: 44-year-old female referred for hemorrhoid issues. She had seen me before for her hemorrhoids. She has a long history of constipation. She and had undergone hemorrhoidectomy in 2013. She says that she had been doing well she had been chronically constipated. She therefore had been started on Linzess by the tearoom host/hostess which she says had helped her for so many years. However, she had switched to [facility] from [facility] last April 2024 and she says she had been unable to get her Linzess anymore. She had been started last week on Ibsrela for chronic constipation She is very anxious and frustrated because of this which. She says that Linzess had been working very well for her for so many years. Because of the switch, she has had severe anxiety attacks as her hemorrhoids act up whenever she is constipated. She is extremely bothered by change in her medications. She says that her hemorrhoids often times swell up and become very painful whenever she has constipation. She denies seeing blood per rectum. [facility], [facility] Medical History (Updated 08/04/24 @ 13:46 by Romel Mcpherson MD) Hemorrhoids with complication Non-compliance with treatment Asthma Restrictive lung disease secondary to obesity Sleep apnea Arthritis Anxiety Asthma HTN (hypertension) Fibromyalgia Bipolar 1 disorder Endometriosis Borderline personality disorder Epigastric pain GERD (gastroesophageal reflux disease) Chronic constipation Surgical History Hx of hemorrhoidectomy History of tonsillectomy History of myringotomy Social History Alcohol intake: unknown Comment: cramping improved Patient Tobacco Use Status: Former Tobacco user Years Smoked: 2018 Substance Use Type: Marijuana Review of Systems Const Denies chills and Denies fever(s) Card Denies chest pain, Denies dyspnea and Denies dyspnea on exertion Resp Denies cough, Denies dyspnea and Denies dyspnea on exertion GI Denies hematochezia, Denies change in bowel habits and Reports constipation Denies hematuria Musc Denies back pain and Denies limited range of motion Neuro Denies focal weakness and Denies convulsions Psych Reports anxiety, Denies depression and Reports mood swings Physical Exam Const Other: Very anxious, periodically in tears General: comfortable Orientation/consciousness: patient oriented x3 Neck Neck: Yes no lymphadenopathy Resp Auscultation: clear to auscultation bilaterally Cardio Rhythm: regular rhythm GI Other: Rectal exam shows external hemorrhoids on both the left and right side Palpation (GI): Soft to palpation, nontender and no guarding Neuro General: patient oriented x3 Office Procedures Anoscopy She was in venessa-knife position. The anoscope was gently inserted. A full examination of the anal canal was done. She had very prominent internal external hemorrhoidal columns on both the left and right side. There were no other lesions seen. There was no fissure. There were no lesions in the anal canal. There was no induration. There was no bleeding. [id number] Assessment & Plan Assessment & Plan (1) Hemorrhoids with complication: Code(s): K64.8 - Other hemorrhoids Category: Medical Plan: She says that the hemorrhoids now have been acting up since Linzess was discontinued by her insurance company in April. She describes pain and swelling periodically with constipation. She is extremely anxious about this switch her medications. I told her that she should give Ibsrela a chance to work for chronic constipation. This has just been started last week. I told her that we can proceed with hemorrhoid surgery but her main problem is chronic constipation. She says that she says not want hemorrhoid surgery says she knows that this is very painful postop. She is familiar with this procedure from 2013. I had a long discussion with her about the importance of controlling her constipation. I told her that she should really give hernia medication for IBS constipation a chance to work. She seems to be very fixated on continuing on Linzess. I advised her to continue to have a close follow up with her tearoom host/hostess. Coding Level of Care Code Est Pt Level 3 (21648) Diagnoses Hemorrhoids with complication K64.8 CPT Codes Details - CPT: 19787-[id number] ([id number])
== END 2024-08-04 13:42 | disposition home or self-care (01) ==
PROVIDERS: PCP Internal Medicine; Visit Provider Surgery
DX: K64.8 Other hemorrhoids (principal)
CPT/HCPCS: 46600; 99213

== ENCOUNTER → 2024-08-04 13:01 | Outpatient (BNVA) | payer OTHER, SELFPAY | PROVIDERS: PCP Internal Medicine; Visit Provider Surgery | DX: K64.8 Other hemorrhoids (principal) | CPT/HCPCS: 46600; 99212 ==

== ENCOUNTER 2024-10-24 08:58 | Outpatient (REF) | payer OTHER, SELFPAY ==
--- NOTE | ~2024-10-24 | FL_ITS ---
EXAMINATION: XR GI SERIES CLINICAL INFORMATION: Gastroesophageal reflux disease without esophagitis. COMPARISON: None available. TECHNIQUE: Routine upper GI/barium swallow exam was performed. FINDINGS: Following oral administration of thick barium and effervescent granules is normal propagation bolus from the oral cavity through the pharynx, esophagus and the stomach without any obstruction, narrowing or stricture. On placing upright and with administration of thick barium there is distention of stomach and visualization of the duodenum however images were not documented. No gastroesophageal reflux or hiatal hernia seen. Patient burped all the air. FLUOROSCOPY TIME: 2.05 minutes DOSE AREA PRODUCT: 1595 uGy-m2 (microgray-meter squared) FL/FL upper GI w Ba Swallow IMPRESSION: Unremarkable appear GI air contrast study. Electronically signed by: Cl Lorenzana MD 10/24/2024 10:58 AM CARIN
--- OUTSIDE RECORDS SUMMARY | 2024-10-24 09:35 | XMS_ITS | Continuity of Care Document ---
Author Organization [place] - [employer] [facility], [place] [facility] Address [address] [place] [id number] Care Team Providers Care Head Trimmer Name Role Phone HIM CCA OTHER APURVA SÁNCHEZBROOKE Primary Care Provider Assessment No assessment recorded. Plan of Treatment Reminders Order Date Submit Date Provider Last Modified By Organization Details Last Modified Time Details Appointments None recorded. Lab None recorded. Referral None recorded. Procedures None recorded. Surgeries None recorded. Imaging None recorded. Medication Orders prednisone 20 mg tablet 2024 025 [id number] [address] [facility] [place], [address], 21:36:17 Patient TargetsNo targets recorded. Patient InstructionsNo instructions recorded. Reason for Referral None Reported. Medical Equipment None Reported. Allergies Allergen ID Allergen Name Allergen Category Reaction Reaction Severity Criticality Documentation Date Start Date Code Code System Note Provider Name and Address Organization Details Recorded Time 20906 acetamino phen medicatio n Not available Not available Not available 09/28/2024 161 RxNorm Not Available [facility] - production 21:08:42 85704 morphine medicatio n Not available Not available Not available 09/28/2024 7052 RxNorm Not Available [facility] - production 21:08:42 Medications Name Sig Start Date Stop Date Status Note LastModified by Organization Details LastModified Time cyclobenzapr ine 10 mg tablet TAKE 1 TABLET BY MOUTH EVERY 8 HOURS NEEDED NEEDED FOR MUSCLE SPASM active Not Available Not Available No t Available medroxyproge sterone 10 mg tablet TAKE 1 TAB EVERY 6 HOURS UNTIL THE BLEEDING STOPS.THEN TAKE 1 TAB DAILY UNTIL SEEN BY GYNECOLOGIS T active Not Available Not Available No t Available levothyroxin e 175 mcg tablet TAKE 1 TABLET BY MOUTH EVERY DAY active Not Available Not Available No t Available carvedilol 25 mg tablet TAKE 1 TABLET BY MOUTH TWICE A DAY active Not Available Not Available No t Available prednisone 10 mg tablet TAKE 4 TABS DAILY FOR 4 DAYS, THEN 2 TABS DAILY FOR 4 DAYS, THEN 1 TAB DAILY FOR 4 DAYS active Not Available Not Available N ot Available albuterol sulfate 2.5 mg/3 mL (0.083 %) solution for nebulization INHALE 1 VIAL VIA NEBULIZER FOUR TIMES A DAY NEEDED FOR ASTHMA active Not Available Not Available No t Available azithromycin 250 mg tablet TAKE 2 TABLETS BY MOUTH TODAY, THEN TAKE 1 TABLET DAILY FOR 4 DAYS DIRECTED active Not Available Not Available No t Available ibuprofen 800 mg tablet TAKE 1 TABLET BY MOUTH EVERY 8 HOURS NEEDED active Not Available Not Available No t Available senna 8.6 mg tablet TAKE 2 TABLETS BY MOUTH AT BEDTIME NEEDED FOR CONSTIPATIO N active Not Available Not Available No t Available sucralfate 100 mg/mL oral suspension TAKE 10 ML (1 G TOTAL) BY MOUTH 3 (THREE) TIMES A DAY BEFORE MEALS. active Not Available Not Available No t Available FreeStyle Lancets 28 gauge USE TO TEST 3 TIMES A DAY active Not Available Not Available No t Available prednisone 20 mg tablet Take 2 tablets by oral route. 2024 active Not Available Not Available Not Avai lable chlorthalido ne 25 mg tablet TAKE 1 TABLET BY MOUTH EVERY DAY active Not Available Not Available No t Available tramadol 50 mg tablet TAKE 1 TO 2 TABLETS BY MOUTH TWICE A DAY NEEDED active Not Available Not Available No t Available pantoprazole 20 mg tablet,delay ed release TAKE 1 TABLET BY MOUTH DAILY ON AN EMPTY STOMACH AT LEAST 30 MINUTES PRIOR TO EATING active Not Available Not Available No t Available hydrocortiso ne 2.5 % topical cream with perineal applicator APPLY RECTALLY TWICE A DAY NEEDED FOR HEMORRHOIDS active Not Available Not Available Not Available alprazolam 0.5 mg tablet TAKE 1 TABLET BY MOUTH THREE TIMES A DAY NEEDED active Not Available Not Available No t Available famotidine 20 mg tablet TAKE 1 TABLET BY MOUTH 2 TIMES A DAY FOR 15 DAYS. active Not Available Not Available No t Available bisacodyl 10 mg rectal suppository UNWRAP & INSERT 1 SUPPOSITORY RECTALLY ONCE DAILY NEEDED FOR CONSTIPATIO N active Not Available Not Available No t Available esomeprazole magnesium 40 mg capsule,vianca yed release TAKE 1 CAPSULE BY MOUTH EVERY DAY active Not Available Not Available No t Available docusate sodium 100 mg capsule TAKE 1 CAPSULE BY MOUTH TWICE A DAY NEEDED FOR CONSTIPATIO N. TAKE WITH SENNA active Not Available Not Available N ot Available omeprazole 20 mg capsule,vianca yed release TAKE 1 CAPSULE BY MOUTH 1 TIME EACH DAY. DO NOT CRUSH OR CHEW. active Not Available Not Available No t Available magnesium citrate oral solution DRINK 150 ML ORALLY DAILY NEEDED FOR CONSTIPATIO N active Not Available Not Available No t Available codeine 10 mg-guaifenes in 100 mg/5 mL oral liquid TAKE 5 ML BY MOUTH EVERY 4-6 HOURS NEEDED active Not Available Not Available No t Available levothyroxin e 200 mcg tablet TAKE 1 TABLET BY MOUTH EVERY DAY active Not Available Not Available No t Available norethindron e acetate 5 mg tablet TAKE 1 TABLET BY MOUTH 3 TIMES A DAY X5 DAYS, 1 TAB 2 TIMES A DAY X7 DAYS, THEN 1 TAB DAILY X10 DAYS active Not Available Not Available No t Available epinephrine 0.3 mg/0.3 mL injection, auto-injecto r INJECT 1 SYRINGE INTRAMUSCUL BUZZ AT ONSET OF ALLERGIC REACTION FROM BEE STING MAY REPEAT IF NEEDED active Not Available Not Available No t Available albuterol sulfate HFA 90 mcg/actuatio n aerosol inhaler INHALE 2 PUFFS INTO THE LUNGS EVERY 4 TO 6 HOURS NEEDED active Not Available Not Available No t Available metformin ER 500 mg tablet,exten ded release 24 hr TAKE 1 TABLET BY MOUTH EVERY DAY active Not Available Not Available No t Available amoxicillin 875 mg-potassium clavulanate 125 mg tablet TAKE 1 TABLET BY MOUTH TWICE A DAY active Not Available Not Available No t Available oxycodone 5 mg tablet TAKE 1-2 TABLETS BY MOUTH THREE TIMES A DAY NEEDED active Not Available Not Available No t Available valsartan 160 mg tablet TAKE 1 TABLET BY MOUTH TWICE A DAY active Not Available Not Available No t Available Laxative (bisacodyl) 5 mg tablet,delay ed release TAKE 2 TABLETS BY MOUTH AT BEDTIME FOR 30 DAYS active Not Available Not Available No t Available Alcohol Prep Pads USE 1 PREP PAD 1 ON THE SKIN TWICE A DAY active Not Available Not Available Not Available glycerin (adult) rectal suppository INSERT 1 SUPPOSITORY IN THE RECTUM DAILY NEEDED NEEDED FOR CONSTIPATIO N active Not Available Not Available No t Available lactulose 10 gram/15 mL oral solution TAKE 15 ML BY MOUTH TWICE A DAY NEEDED FOR CONSTIPATIO N active Not Available Not Available No t Available pregabalin 75 mg capsule TAKE 1 CAPSULE BY MOUTH TWICE A DAY active Not Available Not Available No t Available lubiprostone 24 mcg capsule TAKE 1 CAPSULE BY MOUTH DAILY DAILY FOR CONSTIPATIO N active Not Available Not Available No t Available budesonide-f ormoterol HFA 160 mcg-4.5 mcg/actuatio n aerosol inhaler TAKE 2 PUFFS BY MOUTH TWICE A DAY active Not Available Not Available No t Available FreeStyle Lite Meter kit USE TO TEST BLOOD GLUCOSE 3 TIMES A DAY active Not Available Not Available Not Available FreeStyle Lite Strips USE TO TEST BLOOD GLUCOSE 3 TIMES A DAY active Not Available Not Available Not Available Savella 12.5 mg tablet TAKE 1 TABLET BY MOUTH EVERY DAY active Not Available Not Available No t Available Purelax 17 gram/dose oral powder MIX 17 GRAMS IN BEVERAGE & DRINK ONCE DAILY active Not Available Not Available No t Available Linzess 290 mcg capsule TAKE 1 TABLET BY MOUTH EVERY MORNING active Not Available Not Available No t Available Trulance 3 mg tablet TAKE 1 TABLET BY MOUTH EVERY DAY active Not Available Not Available No t Available Readi-Cat 2 2 % (w/v) oral suspension DRINK 1ST BOTTLE 6 HOURS PRIOR TO SURGERY AND SECOND BOTTLE 90 MINUTES PRIOR TO SURGERY. active Not Available Not Available No t Available Incassia 0.35 mg tablet TAKE 2 TABLETS BY MOUTH TWICE PER DAY UNTIL BLEEDING STOPS. THEN 1 TABLET TWICE PER DAY active Not Available Not Available No t Available Ozempic 1 mg/dose (4 mg/3 mL) subcutaneous pen injector INJECT 1 MG BELOW THE SKIN WEEKLY active Not Available Not Available Not Available Ibsrela 50 mg tablet TAKE 1 TABLET BY MOUTH 2 TIMES A DAY MUST ADMINISTER IMMEDIATELY BEFORE BREAKFAST AND DINNER active Not Available Not Available N ot Available Ozempic 2 mg/dose (8 mg/3 mL) subcutaneous pen injector INJECT 0.75 ML (2MG) UNDER SKIN ONCE WEEKLY active Not Available Not Available Not Available Ozempic 0.25 mg or 0.5 mg (2 mg/3 mL) subcutaneous pen injector INJECT 0.5MG BELOW THE SKIN WEEKLY active Not Available Not Available No t Available Vitals Date Recorded Heart rate Oxygen saturation Oxygen saturation in Arterial blood by Pulse oximetry Body height Respiratory rate Body temperature Body weight Systolic blood pressure Diastolic blood pressure Provider Name and Address Organization Details Last Updated DateTime 94 /min 98 % 98 % 162.56 cm 17 /min 98.4 [degF] 967551. 16 g 104 mm[Hg] 64 mm[Hg] Not Available [facility] - production 5 21:38:12 Social History None recorded. Functional Status None recorded. Mental Status None recorded. Family History Nothing Reported. Medical History No medical history recorded. Gynecological HistoryNo gynecological history recorded. Obstetrics History GPAL:G 0 P 0 0 0 0 Past Encounters Encounter ID Performer Location Encounter Start Date Encounter Closed Date Diagnosis/Indication Diagnosis SNOMED-CT Code Diagnosis ICD10 Code Diagnosis Note [id number] Delilah Cabrera MD [facility] - [facility] [address] [place] [phone] 09/28/2024 21:27:32 09/29/2024 10:13:41 Wheezing 97044608 R06.2 As noted, we were called to see this patient regarding concerns of wheezing. Evaluation in the field was performed by my director global development colleague, as noted above, I provided real-time direction and supervisio n for this visit. 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 She has no other systemic symptoms (fevers, chills). She is using her albuterol nebulizer with resolution of her symptoms.S he has not been using her symbicort regularly and has a PCP visit in the morning. She is no acute distress on exam with good oxygenatio n and slight wheezing on auscultati on of lungs. Impression :Acute asthma exacerbati on Plan:Agree with albuterol nebulizer, will provide 40mg prednisone now. Further taper per PCP tomorrow. Encourage regular symbicort use. Dispositio n: We discussed the diagnostic uncertaint y of home visits and the risk associated with this. In this case, the patient and I felt this to be an acceptable and reasonable amount of risk given the benefit of avoiding an ED visit. We discussed the need to seek care urgently/e mergently in the setting of any new or worsening serious symptoms, particular ly changes to consciousn ess, chest pain, dyspnea. Health Concerns Section Related Observation LastModified by Organization Detai ls LastModified Time None Recorded Concern Status LastModified by Organization Details LastModified Time None Recorded Payers Encounter Date Sequence Insurance Name Policy Number Policy Krishnamurthy Covered Member ID Krishnamurthy Member ID Guarantor Name 09/28/2024 1 [facility] - DOS ON OR AFTER 2022 - DUAL ELIGIBLE - [employer] OPT[employer] AND ONE CARE (MEDICARE REPLACEMENT/ADV ANTAGE - HMO) Sandy Drake [id number] Sandy Tatyana Vidal Notes Date Note Type Note Provider Name and Address Organization Details Recorded Time 09/28/2024 text/html CRC Nurse Triage Notes (Katie Contreras - RN): Reason For Request: Pt's DEVELOPMENT SPEC reporting wheezing breathing in and out, upper back pain, chest pain & dizziness Denies: Increased work of breathing/labored ? with or without fever Unable to speak in full sentences without distress Discoloration of skin -cyanosis Needs to sleep sitting up, can? t catch breath Shortness of breath in setting of confusion Chief Complaints: Back pain, Chest pain, Dizziness PMH: COPD/Asthma, Sleep Apnea, Hypertension, Diabetes Mellitus Type 2, Fibromyalgia, Hypothyroidism PMH Reviewed at 09/28/2024 - : Allergies Reviewed at 09/28/2024 - : Comments: Patients DEVELOPMENT SPEC calling in to place a referral, then patient came on the phone. Patient who did aqua aerobics this morning and began wheezing. She believed it was asthma related, called her doctor for prednisone, but they want to see her in the office tomorrow, however, patient feels worse now. Patient is experiencing right sided back and chest pain, worse with inspiration and expiration. Patient unsure if her lungs hurt for respiratory reasons or it is her anxiety. Patient states she has a crackling cough , shortness of breath and dizziness. She denies any left sided pain, no nausea/vomiting, no blurry vision. Patient currently doing a neb treatment. She would like to be evaluated. Delilah Cabrera MD [address] [facility],[address], [place], [phone], [facility] 10/12/2024 15:24:04 OBGyn Episode No OBEpisode recorded.
--- OUTSIDE RECORDS SUMMARY | 2024-10-24 09:36 | XMS_ITS | Clinical Summary ---
Author Organization [facility] Address [address] [place] [address] Phone Care Team Providers Care Ux Architect Name Role Phone Venice Sifuentes Primary Care Provider Allergies Active Allergy Reactions Criticality Noted Date Comments Acetaminophen 07/08/2024 Bee Venom Protein (Honey Bee) 2023 Morphine 03/20/2021 Medications losartan (COZAAR) 25 mg tablet Take 25 mg by mouth daily. Active traMADoL (ULTRAM) 50 mg tablet Take 50 mg by mouth every 6 hours as needed. Active albuterol HFA (PROAIR HFA ; PROVENTIL HFA ; VENTOLIN HFA) 90 mcg/actuation inhaler Take 1 Puff by mouth daily. Active carvediloL (COREG) 25 mg tablet Take 1 tablet (25 mg total) by mouth 1 (one) time each day. 04/13/2020 Active chlorthalidone (HYGROTON) 25 mg tablet Take 1 tablet (25 mg total) by mouth 1 (one) time each day. 05/02/2019 Active ALPRAZolam (XANAX) 0.5 mg tablet Take 1 tablet (0.5 mg total) by mouth as needed. Max Daily Amount: 0.5 mg Active Active Problems Problem Noted Date Diagnosed Date Morbid obesity with BMI of 45.0-49.9, adult 1211/2023 Thumb injury, sequela 10/26/2023 Palpitations 03/22/2021 Overview (07/27/2024): Last Assessment & Plan: Patient continues with palpitations that occur sporadically. 48-hour Holter monitor only showed sinus tachycardia with a corresponded with doing laundry. Is possible that her symptoms are driven by her anxiety. For completeness, will obtain a 30- day monitor. If this is unremarkable, will defer care back to her PCP team. Hypertension 07/05/2019 Overview (07/27/2024): Last Assessment & Plan: Blood pressure robust in office. She does appear somewhat nervous. Given her somewhat abnormal pheo work-up, will refer back to endocrine though her CAT scan of her abdomen did not show any adrenal masses. Continue her current treatment plan with beta-dane, diuretic, ARB. Historically she has also been on amlodipine and clonidine, and if blood pressure remains elevated, may need to reinstitute 1 of those medications Anxiety 07/05/2019 Depression 07/05/2019 Marijuana dependence 07/05/2019 Asthma, severe persistent 07/05/2019 Encounters Date Type Department Care Team Description 07/26/2024 Telephone Gastroenterology - [place] [address] [facility] [address] [facility] [address] [place] [address] Omari Carlos MD Appointment from Last 3 Months Immunizations Name Administration Dates Next Due PPD Test 02/25/2001,02/22/2001 Surgical History Surgery Date Site/Laterality Comments ANKLE SURGERY 2022 Right PROCEDURE: HISTORICAL ANKLE SURGERY Medical History Medical History Date Comments Anxiety 07/05/2019 DX:Anxiety Asthma, severe persistent (CMS/HCC) 07/05/2019 DX:Asthma, severe persistent Depression 07/05/2019 DX:Depression Hypertension 07/05/2019 DX:Hypertension Marijuana dependence (CMS/HCC) 07/05/2019 D X:Marijuana dependence (HCC) Morbid obesity with BMI of 4 5.0-49.9, adult (CMS/HCC) 07/05/2019 DX:Morbid obesity with BMI o f 45.0-49.9, adult ([facility]) Tobacco use 07/05/2019 DX:Tobacco use; COMMENT: Has quit smoking since Endometriosis 2018 DX:Endometriosis Social History Tobacco Use Types Packs/Day Years Used Date Smoking Tobacco: Former Cigarettes Q uit: 08/24/2018 Smokeless Tobacco: Never Alcohol Use Standard Drinks/Week Comments Never 0 (1 standard drink = 0.6 oz pur e alcohol) Comments Unknown Sex and Gender Information Value Date Recorded Sex Assigned at Not on file Legal Sex Female 10:01 PM EST Gender Identity Not on file Sexual Orientation Not on file Obstetrics History Last Filed Vital Signs Vital Sign Reading Time Taken Comments Blood Pressure 132/64 07/08/2024 1:59 PM EST Pulse 76 07/08/2024 1:59 PM EST Temperature 36.8 ??C (98.2 ??F) 07/08/2024 1:59 PM ES T Respiratory Rate 16 07/08/2024 11:03 AM EST Oxygen Saturation 99% 07/08/2024 1:59 PM EST Inhaled Oxygen Concentration - - Weight 115 kg (253 lb) 07/08/2024 11:03 AM EST Height 162.6 cm (5' 4 ) 07/08/2024 11:03 AM EST Body Mass Index 43.43 07/08/2024 11:03 AM EST Plan of Treatment Health Maintenance Due Date Last Done Comments Breast Cancer Screening 1981 DTaP,Tdap,and Td Vaccines (1 - Tdap) 2000 Hepatitis B Vaccines (1 of 3 - 19+ 3-dose series) 2000 Pneumococcal Vaccine: Pediatrics (0 to 5 Years) and At-Risk Patients (6 to 64 Years) (1 of 2 - PCV) 2000 Cervical Cancer Screening: P ap Smear 2002 Cholesterol Screening (Lipid Panel) 07/26/2022 Depression Screening 07/26/2022 HIV Screening 07/26/2022 Medicare Annual Wellness Visit 07/26/2022 Social Influencers of Health Screening 07/26/2022 COVID-19 Vaccine ( - 2023-2 5 season) 2024 Influenza Vaccine (#1) 2024 Hypertension/CHF/CAD Annual BMP Blood Test 07/08/2025 07/08/2024, 03/10/2005 Hepatitis C Screening Completed 10/31/2002 HIB Vaccines Aged Out No longer eligi ble based on patient's age to complete this topic HPV Vaccines Aged Out No longer eligi ble based on patient's age to complete this topic Hepatitis A Vaccines Aged Out No long er eligible based on patient's age to complete this topic IPV Vaccines Aged Out No longer eligi ble based on patient's age to complete this topic MMR Vaccines Aged Out No longer eligi ble based on patient's age to complete this topic Meningococcal ACWY Vaccine Aged Out N o longer eligible based on patient's age to complete this topic Meningococcal B Vacine Aged Out No lo nger eligible based on patient's age to complete this topic RSV Immunization Patients Under 20 months Aged Out No longer eligible b ased on patient's age to complete this topic Varicella Vaccines Aged Out No longer eligible based on patient's age to complete this topic Procedures Procedure Name Priority Date/Time Associated Diagnosis Comments COMPREHENSIVE METABOLIC PANEL STAT 07/08/2024 11:34 AM EST HEPATITIS C SCREENING Routine 10/31/2002 from Last 3 Months or Most Recently Relevant to Health Maintenance Results * (ABNORMAL) Comprehensive metabolic panel (07/08/2024 11:34 AM EST) Sodium 138 133 - 145 mmol/L LAB CHEMISTRY METHOD 07/08/2024 12:20 PM [facility] Potassium 3.9 3.5 - 5.5 mmol/L LAB CHEMISTRY METHOD 07/08/2024 12:20 PM [facility] Chloride 106 96 - 110 mmol/L LAB CHEMISTRY METHOD 07/08/2024 12:20 PM [facility] CO2 24 21 - 32 mmol/L LAB CHEMISTRY METHOD 07/08/2024 12:20 PM [facility] Anion Gap 8 3 - 11 LAB CHEMISTRY METHOD 07/08/2024 12:20 PM [facility] Glucose 113(H) 70 - 100 mg/dL LAB CHEMISTRY METHOD 07/08/2024 12:20 PM [facility] BUN 14 5 - 25 mg/dL LAB CHEMISTRY METHOD 07/08/2024 12:20 PM [facility] Creatinine 0.87 0.50 - 1.10 mg/dL LAB CHEMISTRY METHOD 07/08/2024 12:20 PM [facility] eGFR 85 >=60 mL/min/1. 73m2 LAB CHEMISTRY METHOD 07/08/2024 12:20 PM [facility] Comment:Calculation based on the??Chronic Kidney Disease Epidemiology Collaboration (CKD-EPI) equation refit??without adjustment for race. BUN/Creatinine Ratio 16.1 LAB CHEMISTRY METHOD 07/08/2024 12:20 PM [facility] Calcium 10.0 8.5 - 10.5 mg/dL LAB CHEMISTRY METHOD 07/08/2024 12:20 PM [facility] AST (SGOT) 19 10 - 42 unit/L LAB CHEMISTRY METHOD 07/08/2024 12:20 PM [facility] ALT (SGPT) 33 10 - 60 unit/L LAB CHEMISTRY METHOD 07/08/2024 12:20 PM [facility] Alkaline Phosphatase 71 42 - 121 unit/L LAB CHEMISTRY METHOD 07/08/2024 12:20 PM [facility] Total Protein 7.4 6.0 - 8.0 g/dL LAB CHEMISTRY METHOD 07/08/2024 12:20 PM [facility] Albumin 3.8 3.2 - 5.0 g/dL LAB CHEMISTRY METHOD 07/08/2024 12:20 PM [facility] Total Bilirubin 0.4 0.0 - 1.4 mg/dL LAB CHEMISTRY METHOD 07/08/2024 12:20 PM [facility] Blood Venous blood specimen / Unknown Venipuncture / Unknown 07/08/2024 11:34 AM EST 07/08/2024 11:46 AM EST us Roay WILDER LAB BLOOD ORDERABLES Final Resul t [facility] [address] [place] [address], * Hepatitis C Screening (10/31/2002) Pathologist [facility] Hepatitis C Screening abstracted Historical Provider HEALTH MAINTENANCE Final Result from Last 3 Months or Most Recently Relevant to Health Maintenance Insurance [employer] MEDICARE Member Subscriber Plan / Payer (Ef fective 2023-Present) Name:Sandy Drake Relation to Subscriber:Self Name:Sandy Drake Payer ID:[id number] Group ID:[id number] Type:Not on file Address: [address] [facility] [place] [address] Advance Directives Documents on File Type Date Recorded Patient Rpg Programmer Expl anation Health Care Decision (hx) 01/22/2023 AD KNOWLES DIRECTIVE Health Care Decision (hx) 01/22/2023 AD KNOWLES DIRECTIVE Health Care Decision (hx) 01/22/2023 AD KNOWLES DIRECTIVE Health Care Decision (hx) 01/22/2023 AD KNOWLES DIRECTIVE Health Care Decision (hx) 01/22/2023 AD KNOWLES DIRECTIVE Health Care Decision (hx) 01/22/2023 AD KNOWLES DIRECTIVE Health Care Decision (hx) 01/22/2023 AD KNOWLES DIRECTIVE Care Teams Ux Architect Relationship Specialty Start Date End Date Venice Sifuentes PA [address] [place] [phone] PCP - General Physician Operations Support Manager 07/26/24
--- OUTSIDE RECORDS SUMMARY | 2024-10-24 09:36 | XMS_ITS ---
Author Organization [facility] Address Unknown Allergies, Adverse Reactions, Alerts Substance Reaction Status Noted Date Resolved Date Morphine active 01/21/2023 Acetaminophen active 01/21/2023 Problems Problem Status Start Date End Date ENCOUNTER FOR OTHER ORTHOPED IC AFTERCARE (Primary) (Z47.89 - ICD-10-CM) ACTIVE 01/21/2023 UNSPECIFIED FRACTURE OF RIGH T WRIST AND HAND, SUBSEQUENT ENCOUNTER FOR FRACTURE WITH ROUTINE HEALING (S62.91XD - ICD-10-CM) ACTIVE 01/21/2023 UNSPECIFIED FALL, SUBSEQUENT ENCOUNTER (W19.XXXD - ICD-10-CM) ACTIVE 01/21/2023 UNSPECIFIED PHYSEAL FRACTURE OF LOWER END OF RIGHT FIBULA, SUBSEQUENT ENCOUNTER FOR FRACTURE WITH ROUTINE HEALING (S89.301D - ICD-10-CM) ACTIVE 01/21/2023 UNSPECIFIED ASTHMA, UNCOMPLICATED (J45.909 - ICD-10-CM ) ACTIVE 01/21/2023 MORBID (SEVERE) OBESITY DUE TO EXCESS CALORIES (E66.01 - ICD-10-CM) ACTIVE 01/21/2023 BIPOLAR DISORDER, UNSPECIFIED (F31.9 - ICD-10-CM) ACTI VE 01/21/2023 OTHER LACK OF COORDINATION (R27.8 - ICD-10-CM) ACTIVE 01/21/2023 POST-TRAUMATIC STRESS DISORD ER, CHRONIC (F43.12 - ICD-10-CM) ACTIVE 01/21/2023 UNSPECIFIED PROTEIN-CALORIE MALNUTRITION (E46 - ICD-10 -CM) ACTIVE 01/21/2023 GASTRO-ESOPHAGEAL REFLUX DIS EASE WITHOUT ESOPHAGITIS (K21.9 - ICD-10-CM) ACTIVE 01/21/2023 ESSENTIAL (PRIMARY) HYPERTENSION (I10 - ICD-10-CM) ACT ANN 01/21/2023 Results * WRIST AP AND LAT Performed by: [employer] Component Value Range Date WRIST AP AND LAT WRIST AP and LAT, [facility] NoteFINDINGS: There is no acute fracture or dislocation. The joint spaces are unremarkable. The carpal bones are normally aligned. The distal radius and ulna are intact. Mild to moderate soft tissue swelling is seen.CONCLUSION: Mild to moderate soft tissue swelling without acute underlying osseous abnormality. No significant degenerative changes.ELECTRONICALLY SIGNED BY PAMELA AYALA M.D. 03/04/2023 11:15:37 PM EDT.Reason for Study: M25.531 PAIN IN RIGHT WRISTPrincipal Result Oxyacetylene Welder: PAMELA AYALA ([id number])Professor Of Radiology: DELMI TAYLOR (DSEXTON)Swimming Pool Cleaner Professor Of Radiology: JIMI 03/04/2023 11:16 pm EDT Encounters Encounter Performer Performer Role Encounter Diagnoses Location Date Discharge - Discharged to home or self care - [facility] - Private home/apt. with home health services [facility] 3 04:00 pm EDT - 3 12:00 pm EDT Social History
--- OUTSIDE RECORDS SUMMARY | 2024-10-24 09:36 | XMS_ITS ---
Author Organization [employer] Address [address] [place] [address] Care Team Providers Care Store Standards Associate Name Role Phone BRITTANY ROGERS Unavailable [phone] REASON FOR VISIT ENDOMETRIOSIS Encounters Encounter Location Date Provider Diagnosis [facility] [employer] [facility] [address] [facility] [address] [place] [address] 06/30/2024 BRITTANY ROGERS Plan Of Treatment No Information Progress Notes * DONAVONMoneKAINB: 1 (44 yo F)Acc No.[id number]:06/30/2024 Progress Note Patient:?JOTOMÁSMone CHRISTIN Provider:?BRITTANY ROGERS MD :1980???Age:44 Y???Sex:Female D ate:06/30/2024 Address:[address] [place] [address] [address], [id number] Subjective: * Chief Complaints: * ???1. ENDOMETRIOSIS. * Medical History:? Objective: * Vitals:? Assessment: Plan: * Treatment: * Images: Billing Information: * Visit Code:? * Procedure Codes:? * Electronic signature of BRITTANY ROGERS MD on 10/24/2024 at 09:35 AM EST Sign off status: Pending * Provider:?BRITTANY ROGERS MD Date:?2023 Generated for Brandie connell/Tomer/eTshawsmitting on:?10/24/2024 09:35 AM EST
--- OUTSIDE RECORDS SUMMARY | 2024-10-24 09:36 | XMS_ITS | Data Portability ---
Author Organization [facility] [employer] [facility] [place] [facility] [employer] Address [address] [place] [address] Care Team Providers Care Mental Health Program Manager Name Role Phone HIM [facility] OTHER APURVA SÁNCHEZLANAMone Primary Care Provider Assessment No assessment recorded. Plan of Treatment Reminders Order Date Submit Date Provider Last Modified By Organization Details Last Modified Time Details Appointments None recorded. Lab None recorded. Referral None recorded. Procedures None recorded. Surgeries None recorded. Imaging None recorded. Medication Orders pred[facility]one 20 mg tablet [id number] [address] [facility] [place], [address], 21:36:17 Patient TargetsNo targets recorded. Patient InstructionsNo instructions recorded. Reason for Referral None Reported. Medical Equipment None Reported. Allergies Allergen ID Allergen Name Allergen Category Reaction Reaction Severity Criticality Documentation Date Start Date Code Code System Note Provider Name and Address Organization Details Recorded Time 85841 acetamino phen medicatio n Not available Not available Not available 09/28/2024 161 RxNorm Not Available [facility] - production 21:08:42 58531 morphine medicatio n Not available Not available [...] and Address Organization Details Last Updated DateTime 5 94 /min 98 % 98 % 162.56 cm 17 /min 98.4 [degF] 578030. 16 g 104 mm[Hg] 64 mm[Hg] Not [...] SNOMED-CT Code Diagnosis ICD10 Code Diagnosis Note [id number] Dleilah Cabrera MD Main - [facility] [address] [place] [phone] 09/28/2024 21:27:32 09/29/2024 10:13:41 Wheezing [id number] R06.2 As noted, we were called to see this patient regarding concerns of wheezing. Evaluation in the field was performed by my green promotions specialist colleague, as noted above, I provided real-time direction and supervisio n for this visit. The evaluation revealed 44 yo with asthma/cop winder d who has had wheezing and cough [...] by Organization Details LastModified Time None Recorded Advance Directives Directive None Recorded Payers Encounter Date Sequence Insurance Name Policy Number Policy Krishnamurthy Covered Member ID Krishnamurthy Member ID Guarantor Name 09/28/2024 1 [facility] - DOS ON OR AFTER 2022 - DUAL ELIGIBLE - CUSTODIAL OPTIONS AND ONE CARE (MEDICARE REPLACEMENT/ADV ANTAGE - HMO) Sandy Drake [id number] Sandy Drake Notes Date Note Type Note Provider Name and Address Organization Details Recorded Time 09/28/2024 text/html CRC Nurse Triage Notes (Katie Contreras - RN): Reason For Request: 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 Delilah Cabrera MD [address] [facility], [place], [address], [employer] 10/12/2024 15:24:04 OBGyn Episode No OBEpisode recorded.
--- OUTSIDE RECORDS SUMMARY | 2024-10-24 09:36 | XMS_ITS | Patient Health Record ---
Author Organization [facility] Address [address] [facility] [address] [place] [address] Care Team Providers Care Corn Husker Name Role Phone BRITTANY ROGERS Unavailable [phone] Reason For Referral No Information Encounters Encounter Location Date Provider Diagnosis [facility] [address] [facility] [address] [place] [address] 06/30/2024 BRITTANY ROGERS Plan Of Treatment No Information Insurance Providers Payer Name Payer Address Payer Phone Subscriber Number Group Number Insured Name Patient Relationship to Insured Coverage Start Date Coverage End Date [facility] [address] [place] [address] CHRISTIN SAVAGE Self - patient is the insured
== END 2024-10-24 08:59 | disposition home or self-care (01) ==
LOC: HO.XRAY 08:58
PROVIDERS: PCP Internal Medicine; Visit Provider Nurse Practitioner Family
DX: K21.9 Gastro-esophageal reflux disease without esophagitis (principal)
CPT/HCPCS: 74240

== ENCOUNTER → 2024-10-24 08:59 | Outpatient (BNV) | payer OTHER, SELFPAY | PROVIDERS: PCP Internal Medicine; Visit Provider Radiology Diagnostic Radiology | DX: K21.9 Gastro-esophageal reflux disease without esophagitis (principal) | CPT/HCPCS: 74240 ==

== ENCOUNTER 2025-01-19 13:39 | Outpatient (REF) | payer OTHER, SELFPAY | END 2025-01-19 13:40 | disposition home or self-care (01) | LOC: HO.LNP 13:39 | PROVIDERS: Visit Provider Nurse Practitioner | DX: R10.9 Unspecified abdominal pain (principal) | CPT/HCPCS: 87338 ==

== ENCOUNTER 2025-05-23 10:58 | Outpatient (AMB) | payer OTHER, SELFPAY ==
--- OUTSIDE RECORDS SUMMARY | 2024-06-30 05:10 | XMS_ITS ---
Author Organization [facility] Address [address] [place] [address] Care Team Providers Care Labor Economist Name Role Phone BRITTANY ROGERS Unavailable [phone] REASON FOR VISIT ENDOMETRIOSIS Encounters Encounter Location Date Provider Diagnosis [facility] [employer] [facility] [address] [facility] [address] [place] [address] 06/30/2024 BRITTANY ROGERS Plan Of Treatment No Information Progress Notes * SHAY SAVAGEOBEDB: 1 (44 yo F)Acc No.[id number]:06/30/2024 Progress Note Patient: Rickie LUNA CHRISTIN Provider: Rickie ROGERS MD :1980 A ge:44 Y S ex:Female Date:06/30/2024 Address:[address] [place] [address], [id number] Subjective: * Chief Complaints: * 1 . ENDOMETRIOSIS. * Medical History: Objective: * Vitals: Assessment: Plan: * Treatment: * Images: Billing Information: * Visit Code: * Procedure Codes: * Electronic signature of BRITTANY ROGERS MD on 05/23/2025 at 12:28 PM EDT Sign off status: Pending * Provider: Rickie ROGERS MD Date: 08/30/2023 Generated for Printi ng/Faneenag/eTransmitting on: 0 05/23/2025 12:28 PM EDT
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
--- OUTSIDE RECORDS SUMMARY | 2025-05-23 12:28 | XMS_ITS | Clinical Summary ---
Author Organization [facility] Address [address] [place] [address] Phone Care Team Providers Care Phonograph Needle Tip Maker Name Role Phone Venice Sifuentes Primary Care Provider [phone] Allergies Active Allergy Reactions Criticality Noted Date [...] needed. Max Daily Amount: 0.5 mg Active medroxyPROGESTE Anton (PROVERA) 5 mg tablet Take 2 tablets (10 mg total) by mouth 2 (two) times a day for 5 doses. 10 each 02/09/2025 Active Active Problems Problem Noted Date Diagnosed Date Morbid obesity with BMI of 4 5.0-49.9, adult (CMS/HCC V24, CMS/HCC V28) 07/27/2024 Thumb injury, sequela 10/26/2023 Palpitations 03/22/2021 Overview [...] medications Anxiety 07/05/2019 Depression 07/05/2019 Marijuana dependence ([facility] V24, [facility] V28) 07/05/2019 Asthma, severe persistent ([facility] V28) 07/05/20 19 Immunizations Immunization Administration Dates Next Due PPD Test 02/25/2001,02/22/2001 Surgical History Surgery Date Site/Laterality Comments ANKLE SURGERY 2022 Right PROCEDURE: HISTORICAL ANKLE SURGERY Medical History Medical History Date Comments Anxiety 07/05/2019 DX:Anxiety Asthma, severe persistent ([facility] V28) 07/05/20 19 DX:Asthma, severe persistent Depression 07/05/2019 DX:Depression Hypertension 07/05/2019 DX:Hypertension Marijuana dependence ([facility]/ [facility] V24, [facility] V28) 07/05/2019 DX:Marijuana dependence (HCC ) Morbid obesity with BMI of 4 5.0-49.9, adult ([facility] V24, [facility] V28) 07/05/2019 DX:Morbid obesity wit h BMI of 45.0-49.9, adult ([facility]) Tobacco use 07/05/2019 DX:Tobacco use; COMMENT: [...] Sign Reading Time Taken Comments Blood Pressure 158/88 02/09/2025 7:22 PM EDT Pulse 74 02/09/2025 7:22 PM EDT Temperature 36.6 C (97.9 F) 02/09/2025 7:22 PM EDT Respiratory Rate 20 02/09/2025 7:22 PM EDT Oxygen Saturation 98% 02/09/2025 7:22 PM EDT Inhaled Oxygen Concentration - - Weight 99.8 kg (220 lb) 02/09/2025 1:43 PM EDT Height 162.6 cm (5' 4 ) 02/09/2025 1:43 PM EDT Body Mass Index 37.76 02/09/2025 1:43 PM EDT Plan of Treatment Health Maintenance Due Date Last Done Comments Breast Cancer Screening 1981 DTaP,Tdap,and Td Vaccines (1 - Tdap) 2000 Hepatitis A Vaccines (1 of 2 - Risk 2-dose series) 2000 Hepatitis B Vaccines (1 of 3 - 19+ 3-dose series) 2000 Pneumococcal Vaccine: Pediatrics (0 to 5 Years) and At-Risk Patients (6 to 49 Years) (1 of 2 - PCV) 2000 Cervical Cancer Screening: P ap Smear 2002 Cholesterol Screening (Lipid Panel) 07/26/2022 HIV Screening 07/26/2022 Medicare Annual Wellness Visit 07/26/2022 Social Influencers of Health Screening 07/26/2022 Depression Screening 08/24/2024 COVID-19 Vaccine ( - 2023-2 5 season) 2025 Influenza Vaccine (#1) 2025 Hypertension/CHF/CAD Annual BMP Blood Test 02/09/2026 02/09/2025, 07/08/2024, 03/10/2005 Hepatitis C Screening Completed 10/31/2002 [...] age to complete this topic Meningococcal B Vaccine Aged Out No l onger eligible based on patient's age to complete this topic RSV Immunization Patients Under 20 months Aged Out No longer eligible b ased on patient's age to complete this topic Varicella Vaccines Aged Out No longer eligible based on patient's age to complete this topic Procedures Procedure Name Priority Date/Time Associated Diagnosis Comments COMPREHENSIVE METABOLIC PANEL STAT 02/09/2025 1:46 PM EDT HEPATITIS C SCREENING Routine 10/31/2002 from Last 3 Months or Most Recently Relevant to Health Maintenance Results * (ABNORMAL) Comprehensive metabolic panel (02/09/2025 1:46 PM EDT) Sodium 141 133 - 145 mmol/L LAB CHEMISTRY METHOD 02/09/2025 2:30 PM [facility] Potassium 3.8 3.5 - 5.5 mmol/L LAB CHEMISTRY METHOD 02/09/2025 2:30 PM [facility] Chloride 112(H) 96 - 110 mmol/L LAB CHEMISTRY METHOD 02/09/2025 2:30 PM [facility] CO2 22 21 - 32 mmol/L LAB CHEMISTRY METHOD 02/09/2025 2:30 PM [facility] Anion Gap 7 3 - 11 LAB CHEMISTRY METHOD 02/09/2025 2:30 PM [facility] Glucose 97 70 - 100 mg/dL LAB CHEMISTRY METHOD 02/09/2025 2:30 PM [facility] BUN 11 5 - 25 mg/dL LAB CHEMISTRY METHOD 02/09/2025 2:30 PM [facility] Creatinine 0.63 0.50 - 1.10 mg/dL LAB CHEMISTRY METHOD 02/09/2025 2:30 PM EDT [facility] eGFR 113 >=60 mL/min/1. 73m2 LAB CHEMISTRY METHOD 02/09/2025 2:30 PM EDT [facility] Comment:Calculation based on the Chronic Kidney Disease Epidemiology Collaboration (CKD-EPI) equation refit without adjustment for race. BUN/Creatinine Ratio 17.5 LAB CHEMISTRY METHOD 02/09/2025 2:30 PM EDT [facility] Calcium 8.7 8.5 - 10.5 mg/dL LAB CHEMISTRY METHOD 02/09/2025 2:30 PM T [facility] AST (SGOT) 10 10 - 42 unit/L LAB CHEMISTRY METHOD 02/09/2025 2:30 PM [facility] ALT (SGPT) 15 10 - 60 unit/L LAB CHEMISTRY METHOD 02/09/2025 2:30 PM EDT [facility] Alkaline Phosphatase 58 42 - 121 unit/L LAB CHEMISTRY METHOD 02/09/2025 2:30 PM EDT [facility] Total Protein 6.1 6.0 - 8.0 g/dL LAB CHEMISTRY METHOD 02/09/2025 2:30 PM [facility] Albumin 3.0(L) 3.2 - 5.0 g/dL LAB CHEMISTRY METHOD 02/09/2025 2:30 PM EDT [facility] Total Bilirubin 0.3 0.0 - 1.4 mg/dL LAB CHEMISTRY METHOD 02/09/2025 2:30 PM T [facility] Blood Venous blood specimen / Unknown Venipuncture / Unknown 02/09/2025 1:46 PM EDT 02/09/2025 1:56 PM EDT us Krzysztof B [facility] LAB BLOOD ORDERABLES Final Resu lt [facility] [address] [place] [address], * Hepatitis C Screening (10/31/2002) Hepatitis C Screening abstracted us Historical Provider HEALTH MAINTENANCE Final Result from Last 3 Months or Most Recently Relevant to Health Maintenance Insurance [employer] Member Subscriber Plan / Payer (Ef fective 2023-Present) Name:SANDY DRAKE Relation to Subscriber:Self Name:Sandy Drake Payer ID:[id number] Group ID:[id number] Type:Not on file Address: [place] [address] [id number] Advance Directives Documents on File Type Date Recorded Patient Industrial Hygenist Expl anation Health Care Decision (hx) 01/22/2023 AD KNOWLES DIRECTIVE Health Care Decision (hx) 01/22/2023 AD KNOWLES DIRECTIVE Health Care Decision (hx) 01/22/2023 AD KNOWLES DIRECTIVE Health Care Decision (hx) 01/22/2023 AD KNOWLES DIRECTIVE Health Care Decision (hx) 01/22/2023 AD KNOWLES DIRECTIVE Health Care Decision (hx) 01/22/2023 AD KNOWLES DIRECTIVE Health Care Decision (hx) 01/22/2023 AD KNOWLES DIRECTIVE Care Teams Phonograph Needle Tip Maker Relationship Specialty Start Date End Date Venice Sifuentes PA [address] [place] [address] [place] [phone] PCP - General Physician Assistant Tennis Coach 07/26/24
--- OUTSIDE RECORDS SUMMARY | 2025-05-23 12:28 | XMS_ITS | Clinical Summary ---
Author Organization [facility] Address [address] [phone] Phone Care Team Providers Care Cigarette Stamper Name Role Phone Pcp, Unknown Primary Care Provider Unavailabl e Allergies Active Allergy Reactions Criticality Noted Date Comments Acetaminophen 07/17/2024 Allergen Qkg-Zyluw-Ccfeb Bee 024 Bee Venom Protein (Honey Bee) 2023 Morphine 01/21/2023 Medications medroxyPROGESTER one (PROVERA) 10 MG tablet Take 1 tablet by mouth every 6 hours until the bleeding stops. 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 60 tablet 07/17/20 24 Active traMADoL (ULTRAM) 50 mg tablet TAKE 1 TO 2 TABLETS BY MOUTH TWICE A DAY NEEDED 07/01/20 24 Active valsartan (DIOVAN) 160 MG tablet Take 160 mg by mouth 2 (two) times a day. Active levothyroxine (SYNTHROID, LEVOTHROID) 175 MCG tablet Take 1 tablet by mouth every morning. 06/03/20 24 Active glycerin, adult, Supp INSERT 1 SUPPOSITORY IN THE RECTUM DAILY NEEDED NEEDED FOR CONSTIPATION 05/09/20 24 Active lactulose bulk (CONSTULOSE) 10 gram/15 mL solution TAKE 15 ML BY MOUTH TWICE A DAY NEEDED FOR CONSTIPATION 05/09/20 24 Active SAVELLA 12.5 mg Tab 07/14/20 24 Active lubiprostone (AMITIZA) 24 MCG capsule TAKE 1 CAPSULE BY MOUTH DAILY DAILY FOR CONSTIPATION 05/30/20 24 Active docusate sodium (COLACE) 100 MG capsule TAKE 1 CAPSULE BY MOUTH TWICE A DAY NEEDED FOR CONSTIPATION. TAKE WITH SENNA 05/06/20 24 Active carvedilol (COREG) 25 MG tablet Take 1 tablet by mouth 2 (two) times a day. 06/03/20 Active budesonide-formo terol 160-4.5 mcg/actuation inhaler Inhale 2 puffs into the lungs 2 (two) times a day. 06/26/20 Active bisacodyl (DULCOLAX) 10 mg suppository INSERT 1 SUPPOSITORY RECTALLY DAILY NEEDED FOR CONSTIPATION 05/12/20 Active LAXATIVE, BISACODYL, 5 mg EC tablet TAKE 2 TABLETS BY MOUTH AT BEDTIME FOR 30 DAYS 06/14/20 Active ALPRAZolam (XANAX) 0.5 MG tablet Take 0.5 mg by mouth 3 (three) times a day as needed. 06/20/20 Active albuterol 2.5 mg /3 mL (0.083 %) nebulizer solution INHALE 1 VIAL VIA NEBULIZER FOUR TIMES A DAY NEEDED FOR ASTHMA 06/13/20 Active albuterol 90 mcg/actuation inhaler INHALE 2 PUFFS INTO THE LUNGS EVERY 4 TO 6 HOURS NEEDED 07/11/20 Active blood-glucose sensor (Goodie Goodie AppCOM G7 SENSOR) DeviIndications: Type 2 diabetes mellitus with hyperglycemia, without long-term current use of insulin Use 1 device every 10 days 9 each 2 04/26/20 25 Active norethindrone (AYGESTIN) 5 mg tablet Take 1 tablet (5 mg total) by mouth daily. 90 tablet 3 05/01/20 25 Active metroNIDAZOLE (FLAGYL) 500 MG tablet Take 1 tablet (500 mg total) by mouth 2 (two) times a day. 14 tablet 05/01/20 25 Active OZEMPIC 2 mg/dose (8 mg/3 mL) subcutaneous injection pen INJECT 2 MG BELOW THE SKIN WEEKLY 06/24/20 24 025 Discontin ued(No longer taking) norethindrone (AYGESTIN) 5 mg tabletIndication s:Abnormal uterine bleeding (AUB) TAKE 1 TABLET BY MOUTH 3 TIMES A DAY X5 DAYS, 1 TAB 2 TIMES A DAY X7 DAYS, THEN 1 TAB DAILY X10 DAYS 39 tablet 09/02/19 25 025 Discontin ued(No longer taking) semaglutide (OZEMPIC) 0.25 mg or 0.5 mg (2 mg/3 mL) subcutaneous injection penIndications:T ype 2 diabetes mellitus with hyperglycemia, without long-term current use of insulin Inject 0.25 mg under the skin every 7 days. 3 mL 3 04/12/20 25 025 Discontin ued(No longer taking) Active Problems No known active problems Encounters Date Type Department Care Team Description 05/22/[address] [address] Jose Alejandro Moore, APRYL dexcom iissue 05/19/[address] [address] Jose Alejandro Moore, APRYL Follow-up 05/17/2025 Telephone [facility] Endocrinology [address] [place] [address] Jose Alejandro Moore, APRYL Medication Prior Authorization 05/09/2025 Telephone [facility] Gynecology [address], 4th [address], [address] [place] [address] Rossy Briceño CNP Triage (Keyanna pt, asking if she needs to come in for retesting to see if the infection is cleared) 05/01/2025 8:30 AM EDT Office Visit [facility]imally Invasive Gynecologic Surgery [address], [address] Floor, [address] [place] [address] Rossy Briceño CNP Premenopausal menorrhagia (Primary Dx); Healthcare maintenance; Vaginal itching; Unprotected sex; Screening for human immunodeficiency virus; Need for hepatitis B screening test; test negative; Trichomonas infection 04/27/[address] [address] Neda Norton [place] Medication Prior Authorization 04/25/[address] [address] Jose Alejandro Moore NP Medication Question; Medication Refill; Labs 04/12/2025 10:16 AM EDT - 04/12/2025 11:59 PM EDT Hospital Encounter [facility] - Phlebotomy - [address] [address] Jose Alejandro Moore NP Discharge Disposition: Home or Self Care 04/12/2025 9:00 AM EDT Office Visit [facility]- Diabetes - [address] [address] Jose Alejandro Moore NP Type 2 diabetes mellitus with hyperglycemia, without long-term current use of insulin (Primary Dx) 02/21/2025 Transcribe Orders [facility] Gynecology [address] [place] [address], 4th Floor, [address] [place] [address] Referring, Not Required from Last 3 Months Social History Tobacco Use Types Packs/Day Years Used Date Smoking Tobacco: Never Assessed Education Answer Date Recorded Are you interested in more education? Not on hai e 07/17/2024 Are you concerned about learning? Not on file 07/17/2024 No 07/17/2024 No 07/17/2024 Digital Access Answer Date Recorded No 07/17/2024 No 07/17/2024 Reliable internet access at home? Not on file 07/17/2024 Device with a working camera? Not on file Intimate Partner Violence Answer Date R ecorded Are you denied basic needs s uch as food, clothing, or medical care? No 07/17/2024 In the past 12 months have y ou been in a relationship with a person who hurts, threatens, or tries to control you? No 07/17/2024 Are you denied basic needs s uch as food, clothing, or medical care? No 07/17/2024 In the past 12 months have y ou been in a relationship with a person who hurts, threatens, or tries to control you? No 07/17/2024 Comments Unknown Sex and Gender Information Value Date Recorded Sex Assigned at Female 07/17/2024 1:21 PM EST Legal Sex Female 12:46 PM EST Gender Identity Female 07/17/2024 1:21 PM EST Sexual Orientation Don't know 07/17/2024 1: 21 PM EST Last Filed Vital Signs Vital Sign Reading Time Taken Comments Blood Pressure 156/106 05/01/2025 8:43 AM EDT Pulse 88 05/01/2025 8:43 AM EDT Temperature 36.7 C (98.1 F) 07/17/2024 4:26 PM EST Respiratory Rate 13 07/17/2024 3:38 PM EST Oxygen Saturation 98% 04/12/2025 8:47 AM EDT Inhaled Oxygen Concentration - - Weight 95.3 kg (210 lb) 05/01/2025 8:43 AM EDT Height 158.8 cm (5' 2.5 ) 05/01/2025 8:43 AM EDT Body Mass Index 37.8 05/01/2025 8:43 AM EDT Plan of Treatment Upcoming Encounters Date Type Department Care Team (Late st Contact Info) Description 05/25/2025 4:20 PM EDT Office Visit [facility] Endocrine, Diabetes, and Hypertension [address] [facility] [address] [place] [address] Sameera Rey MD [address] [place] [address] [email or web address] 05/30/2025 10:30 AM EDT Office Visit [facility] Gynecology [address], [address], [address] [place] [address] Rossy Briceño, ALLA [address] [address] [place] [address] [email or web address] 06/19/2025 9:00 AM EDT Office Visit [facility] [address] [facility], [address] [place] [address] Veronica Bird, COSTUME CUTTER [address] [place] [address] 07/19/2025 10:00 AM EST Telemedicine [facility]- Diabetes - [place] [address] [place] [address] Jose Alejandro Moore, TONGUE AND GROOVE MACHINE FEEDER [address] [place] [address] [email or web address] 08/02/2025 11:20 AM EST Procedure visit [facility] Gyne[facility] [address], 4[address], [address] [place] [address] Rossy Briceño, ALLA [address] [facility] [address] [address] [email or web address] Health Maintenance Due Date Last Done Comments Adult Td,Tdap Booster 1981 TSH LEVEL 1981 DEPRESSION SCREENING 1993 SMOKING Hx and SMOKELESS TOB ACCO SCREENING 1994 HEPATITIS C SCREENING 1999 PNEUMOCOCCAL VACCINES (0-49 years) (1 of 2 - PCV) 2000 MAMMOGRAM 2021 INFLUENZA VACCINE (#1) 2025 DIABETIC EYE EXAM 04/12/2025 COVID-19 VACCINE (1 - 2023-2 5 season) 2025 CREATININE LEVEL 07/17/2025 07/17/2024 POTASSIUM LEVEL 07/17/2025 07/17/2024 HEMOGLOBIN A1C 10/13/2025 04/12/2025 BLOOD PRESSURE 10/29/2025 05/01/2025 LIPID PANEL 04/12/2026 04/12/2025 PAP SMEAR 05/01/2028 05/01/2025 HIV ONE-TIME SCREENING (18-6 5 YEARS) Completed 05/01/2025 HEPATITIS A VACCINES Aged Out No long er eligible based on patient's age to complete this topic HIB VACCINES Aged Out No longer eligi ble based on patient's age to complete this topic MENINGOCOCCAL VACCINES (ACWY) Aged Out No longer eligible based on patient's age to complete this topic MENINGOCOCCAL VACCINES (B) Aged Out N o longer eligible based on patient's age to complete this topic Medical Devices Not on file Procedures Procedure Name Priority Date/Time Associated Diagnosis Comments POCT SALINE WET PREP Routine 05/01/2025 10:40 AM EDT Vaginal itching POCT EVELINE WET PREP Routine 05/01/2025 10: 39 AM EDT Vaginal itching POCT VAGINAL PH FOR VAGINOSIS/VAGINITIS Routine 05/01/2025 10:05 AM EDT Vaginal itching TRICHOMONAS NUCLEIC ACID DETECTION Routine 05/01/2025 9:46 AM EDT FUNGAL CULTURE Routine 05/01/2025 9:46 AM EDT Vaginal itching CHLAMYDIA TRACHOMATIS AND NEISSERIA GONORRHOEAE NUCLEIC ACID DETECTION Routine 05/01/2025 9:46 AM EDT Vaginal itching POCT URINE HCG Routine 05/01/2025 9:44 AM EDT Premenopausal menorrhagia SYPHILIS ANTIBODY SCREEN ASSAY Routine 05/01/2025 9:43 AM EDT Unprotected sex HIV-1/2 ANTIGEN/ANTIBODY Routine 05/01/2025 9:43 AM EDT Screening for human immunodeficiency virus HEPATITIS B SURFACE ANTIGEN Routine 05/01/2025 9:43 AM EDT Need for hepatitis B screening test PAP TEST Routine 05/01/2025 12:00 AM EDT MICROALBUMIN/CREATIN INE RATIO, RANDOM URINE Routine 04/12/2025 10:42 AM EDT Type 2 diabetes mellitus with hyperglycemia, without long-term current use of insulin C-PEPTIDE Routine 04/12/2025 10:25 AM EDT Type 2 diabetes mellitus with hyperglycemia, without long-term current use of insulin GAD65 ANTIBODY, BLOOD Routine 04/12/2025 10:25 AM EDT Type 2 diabetes mellitus with hyperglycemia, without long-term current use of insulin GLUCOSE Routine 04/12/2025 10:25 AM EDT Type 2 diabetes mellitus with hyperglycemia, without long-term current use of insulin INSULIN ANTIBODY Routine 04/12/2025 10:2 5 AM EDT Type 2 diabetes mellitus with hyperglycemia, without long-term current use of insulin ISLET ANTIGEN 2 ANTIBODY Routine 04/12/2025 10:25 AM EDT Type 2 diabetes mellitus with hyperglycemia, without long-term current use of insulin ISLET CELL ANTIBODY Routine 04/12/2025 1 0:25 AM EDT Type 2 diabetes mellitus with hyperglycemia, without long-term current use of insulin ZN TRANSPORTER 8 AB Routine 04/12/2025 1 0:25 AM EDT Type 2 diabetes mellitus with hyperglycemia, without long-term current use of insulin FRUCTOSAMINE Routine 04/12/2025 10:25 AM EDT Type 2 diabetes mellitus with hyperglycemia, without long-term current use of insulin LIPID PANEL Routine 04/12/2025 10:25 AM EDT Type 2 diabetes mellitus with hyperglycemia, without long-term current use of insulin LFTS (HEPATIC PANEL) Routine 04/12/2025 10:25 AM EDT Type 2 diabetes mellitus with hyperglycemia, without long-term current use of insulin POCT GLUCOSE Routine 04/12/2025 8:54 AM EDT POCT HEMOGLOBIN A1C Routine 04/12/2025 7 :48 AM EDT BASIC METABOLIC PANEL STAT 07/17/2024 1:37 PM EST from Last 3 Months or Most Recently Relevant to Health Maintenance Results * (ABNORMAL) POCT Wet Prep (05/01/2025 10:40 AM EDT) WBC - POCT Moderate(A ) Absent, Few RBC - POCT Absent Absent, Few Bacteria - POCT Many(A) Absent, Few Yeast - POCT Absent Absent Epithelial - Clue Cells - POCT Absent Absent Epithelial - Squamous Cells - POCT Trichomonas - POCT Present(A) Absent Other - POCT Other 05/01/2025 10:[address] [facility] [place] POINT OF CARE TEST ORDERABLES Final Result * POCT EVELINE Wet Prep (05/01/2025 10:39 AM EDT) Pathologist [facility] Yeast - POCT Absent Absent Whiff Test - POCT Negative Negative Other 05/01/2025 10:[address] [facility] [place] POINT OF CARE TEST ORDERABLES Final Result * (ABNORMAL) POCT Vaginal PH for Vaginosis/Vaginitis (05/01/2025 10:05 AM EDT) Pathologist [facility] Vaginal pH 6.0(A) 0 - 4.5 Interpretation Body Fluid (Vaginal) 05/01/2025 10:[address] [facility] [place] POINT OF CARE TEST ORDERABLES Final Result * Chlamydia Trachomatis and Neisseria Gonorrhoeae Nucleic Acid Detection (05/01/2025 9:46 AM EDT) Pathologist [facility] C.TRACHOMATIS, AMP Chlamydia trachomatis (CT) DNA NOT DETECTED Chlamydia trachomatis (CT) DNA NOT DETECTED [facility] Comment: This test is not recommended for evaluation of suspected sexual abuse or for other medico-legal indications This assay should not be used to determine therapeutic success as DNA may persist after appropriate antimicrobial therapy. This test has not been evaluated in patients younger than 14 years of age. Penile and Urethral specimen are not approved specimen types, interpret results with caution. Specimen type (C. Trachomatis DNA) VAGINAL [facility] N.Gonorrhoeae, AMP Neisseria Gonorrhoeae (NG) DNA NOT DETECTED Neisseria Gonorrhoeae (NG) DNA NOT DETECTED [facility] Comment: This test is not recommended for evaluation of suspected sexual abuse or for other medico-legal indications This assay should not be used to determine therapeutic success as DNA may persist after appropriate antimicrobial therapy. This test has not been evaluated in patients younger than 14 years of age. Penile and Urethral specimen are not approved specimen types, interpret results with caution. Specimen type VAGINAL [facility] Other (Vaginal) 05/01/2025 9 :46 AM EDT 05/01/2025 2:30 PM EDT [facility] COSTUME CUTTER NON CULTURE MICROBIOLOGY Helene l Result Performing Organization Address [facility] Co de Phone Number [address] [address] * (ABNORMAL) Trichomonas nucleic acid detection (05/01/2025 9:46 AM EDT) SPECIMEN TYPE VAGINAL [facility] TRICHOMONAS AMP Trichomonas vaginalis DNA DETECTED(A) Trichomonas vaginalis DNA NOT DETECTED [facility] Comment: This assay is not recommended for evaluation of suspected sexual abuse and for other medico-legal indications. It should also not be used to determine therapeutic success as DNA may persist despite successful antimicrobial therapy. This assay has not been evaluated in patients younger than 18 years of age. 05/01/2025 9:46 AM EDT 05/01/2025 2:34 PM EDT [facility] COSTUME CUTTER NON CULTURE MICROBIOLOGY Helene l Result Performing Organization Address City/[facility]/ZIP Co de Phone Number [address] [address] * Fungal culture (05/01/2025 9:46 AM EDT) Special Requests No Special Requests 05/01/2025 9:46 AM EDT [facility] Fungal Culture Only NO FUNGUS OR YEAST ISOLATED AFTER 7 DAYS 05/08/2025 9:12 AM EDT [facility] Other (Vaginal) 05/01/2025 9 :46 AM EDT 05/01/2025 12:22 PM EDT Rossy Briceño CNP MICROBIOLOGY - GENERAL ORDERA BLES Final Result [address] [address] * Poct Urine HCG (05/01/2025 9:44 AM EDT) Pathologist [facility] HCG, urine Negative, Internal QCs acceptable Negative Other 05/01/2025 9:44 AM EDT Rossy Briceño [facility] POINT OF CARE TEST ORDERABLES Final Result * HIV-1/2 antigen/antibody (05/01/2025 9:43 AM EDT) [facility] HIV 1/2 AB/AG Non-Reac tive Non-Reac tive [facility] Comment: A Non-Reactive result does not rule out HIV infection, especially in the setting of acute or early infection. If indicated, based on patient's clinical and epidemiologic exposure history, the patient should have HIV RNA testing performed and repeat HIV testing in 4-8 weeks. Antiretroviral drugs taken for treatment or prophylaxis may limit the ability of diagnostic tests to detect HIV infection. Results were obtained using a 4th generation combination assay [HIV-1/2 Ag/Ab] by chemiluminescent microparticle immunoassay (CMIA). The assay detects antibodies to HIV-1/HIV-2 and/or HIV-1 antigen [P24], if present in the patient's blood. Blood 05/01/2025 9:43 AM EDT 05/01/2025 12:28 PM EDT Rossy Briceño COSTUME CUTTER LAB BLOOD ORDERABLES Final Re sult [address] [address] * Syphilis antibody screen (05/01/2025 9:43 AM EDT) [facility] Syphilis Antibody Screen Non-React isela Non-React isela [facility] Comment: INTERPRETATION: Negative for syphilis antibodies. NOTE: This specimen was screened for syphilis using a specific immunoassay for the detection of IgG and IgM Treponema pallidum antibodies. This test has replaced the Non-Treponemal RPR as the initial screening antibody test for syphilis at [facility], because it is more sensitive and specific. Blood 05/01/2025 9:43 AM EDT 05/01/2025 12:14 PM EDT Rossy Briceño CNP LAB BLOOD ORDERABLES Final Re sult Performing Organization Address [facility] de Phone Number [address] [phone] * Hepatitis B surface antigen (05/01/2025 9:43 AM EDT) HBV SURFACE ANTIGEN Negative Negative [facility] Blood 05/01/2025 9:43 AM EDT 05/01/2025 12:28 PM EDT Rossy Briceño CNP LAB BLOOD ORDERABLES Final Re sult Performing Organization Address [facility] de Phone Number [address] [phone] * Pap Test (05/01/2025 12:00 AM EDT) 05/01/2025 05/01/2025 2:0 8 PM EDT Narrative SEE NARRATIVE - 05/16/2025 3:53 [place] [address] MAGNETIC TAPE COMPOSER OPERATOR Cytology Report Patient Name: CHRISTIN DRAKE : 1980 (Age: 44) Sex: F Institution: [facility] Location: [facility] Date of Collection: 05/01/2025 Date of Reported: 05/16/2025 15:53 Results to: Rossy Briceño CNP FINAL DIAGNOSIS A. CERVICAL, LIQUID BASED SPECIMEN: SPECIMEN ADEQUACY: Satisfactory for evaluation. INTERPRETATION: NEGATIVE FOR INTRAEPITHELIAL LESION OR MALIGNANCY. ADDITIONAL INFORMATION: Trichomonas vaginalis. This specimen was pre-screened using the ThinPrep Imaging System. Electronically Signed Out By: Peter Brown, SCT(ASCP)MB Cervical cytology is a screening test primarily for squamous cancers and precursors and has associated false-negative and false-positive results. New technologies such as liquid-based preparations may decrease but will not eliminate all false-negative results. Regular sampling and follow-up of unexplained clinical signs and symptoms are recommended to minimize false negative results. PROCEDURES/ADDENDA HPV Testing (Requested) Ordered Date: 05/01/2025 A. CERVICAL, LIQUID BASED SPECIMEN: High-risk HPV Panel w/ extended genotyping NEG HPV 16-NEG HPV 18-NEG HPV 45-NEG HPV 33/58-NEG HPV 31-NEG HPV 56/59/66-NEG HPV 51-NEG HPV 52-NEG HPV 35/39/68-NEG Performed by real-time polymerase chain reaction (PCR) at [facility], [address] [place] [address] using the FDA-approved Synoste O[employer] Onclarity HPV Assay with extended genotyping. Uses of the assay in scenarios other than those approved by the FDA should be considered off-label use. The accuracy and precision of this test for all other off-label specimen sources has been verified in the Cytopathology Laboratory of the [facility] and has not been cleared or approved by the U.S. Food and Drug Administration. Clinical correlation is advised. The assay assesses the E6/E7 DNA target and utilizes human beta globin as an internal control. Cytology and HPV testing are screening assays and should not be used as the sole means of detecting cancer. False-positives and false-negatives can occur. CLINICAL HISTORY Date of Last Menstrual Period: Contraceptive History: Hormonal SPECIMEN SOURCE A: CERVICAL, LIQUID BASED SPECIMEN Rossy Briceño [facility] CYTOLOGY ORDERABLES Final Res ult SEE NARRATIVE * (ABNORMAL) Microalbumin/creatinine ratio, random urine (04/12/2025 10:42 AM EDT) UR CREATININE 106.6 mg/dL [facility] Comment: No reference values apply. Interpret with other clinical data. MALB/CRE 104.1(H) 0.0 - 30.0 mg/Alb/g Cre [facility] URINE MICROALBUMIN 11.1(H) 0.0 - 2.0 mg/dL [facility] Urine (Urine) 04/12/2025 10: 42 AM EDT 04/12/2025 10:46 AM EDT Jose Alejandro Moore TONGUE AND GROOVE MACHINE FEEDER URINE ORDERABLES Final Re sult Performing Organization Address [facility] Co de Phone Number [facility] [address] [place] [address] * Zn transporter 8 antibody (04/12/2025 10:25 AM EDT) Zinc T8 Ab (U/mL) <15.0 <15.0 U/mL [facility] MED [facility] PAT+ Comment: (NOTE) ADDITIONAL INFORMATION This test has been modified from the duralumin mechanic's instructions. Its performance characteristics were determined by [facility] in a manner consistent with CLIA requirements. This test has not been cleared or approved by the U.S. Food and Drug Administration. Blood 04/12/2025 10:2 5 AM EDT 04/12/2025 10:32 AM EDT Jose Alejandro Moore NP LAB BLOOD ORDERABLES Helene l Result Performing Organization Address [facility] de Phone Number [facility] MED [facility] PAT+ [address] [place] [address] * ISLET CELL ANTIBODY (04/12/2025 10:25 AM EDT) ISLET CELL ANTIBODY <1:4 <1:4 [facility] Comment: (NOTE) INTERPRETIVE INFORMATION: Islet Cell Ab, IgG Islet cell antibodies (ICAs) are associated with type 1 diabetes (TID), an autoimmune endocrine disorder. ICAs may be present years before the onset of clinical symptoms. To calculate Juvenile Diabetes Foundation (JDF) units: multiply the titer x 5 (1:8 8 x 5 = 40 JDF Units). This test was developed and its performance characteristics determined by [facility]. It has not been cleared or approved by the US Food and Drug Administration. This test was performed in a CLIA certified laboratory and is intended for clinical purposes. Performed By: [address] [address] Hvac R Instructor: Gerber Brown MD, PhD CLIA Number: [id number] Blood 04/12/2025 10:2 5 AM EDT 04/12/2025 10:32 AM EDT Jose Alejandro Moore LAB BLOOD ORDERABLES Helene l Result Performing Organization Address [facility] Co de Phone Number [address] [address] * Islet antigen 2 (IA2) antibody (04/12/2025 10:25 AM EDT) Pathologist [facility] IA-2 Autoantibodies <7.5 U/mL [facility] Comment: (NOTE) Reference Range: <7.5 Negative > or = 7.5 Positive Test Performed by: [facility] [address] [place] [address] Blood 04/12/2025 10:2 5 AM EDT 04/12/2025 10:32 AM EDT Jose Alejandro Moore NP LAB BLOOD ORDERABLES Helene l Result Performing Organization Address [facility] Co de Phone Number [facility] * GAD65 antibody, blood (04/12/2025 10:25 AM EDT) GAD65 ANTIBODY 0.00 <=0.02 nmol/L [facility] PAT+ Comment: (NOTE) ADDITIONAL INFORMATION This test was developed and its performance characteristics determined by [facility] in a manner consistent with CLIA requirements. This test has not been cleared or approved by the U.S. Food and Drug Administration. Blood 04/12/2025 10:2 5 AM EDT 04/12/2025 10:32 AM EDT Result [facility] Jose Alejandro Moore NP LAB BLOOD ORDERABLES Helene l Result [facility] DPT OF LAB MED AND PAT+ [address] [place] [address] * LFTs (hepatic panel) (04/12/2025 10:25 AM EDT) Pathologist [facility] TOTAL PROTEIN 7.3 6.4 - 8.3 g/dL [facility] ALBUMIN 4.2 3.5 - 5.2 g/dL [facility] GLOBULIN 3.1 2.2 - 4.2 g/dL [facility] AST 12 10 - 50 U/L [facility] ALT 12 10 - 50 U/L [facility] ALKALINE PHOSPHATASE 70 35 - 130 U/L [facility] TOTAL BILIRUBIN 0.3 0.0 - 1.0 mg/dL [facility] DIRECT BILIRUBIN 0.1 0.0 - 0.3 mg/dL [facility] Blood 04/12/2025 10:2 5 AM EDT 04/12/2025 10:32 AM EDT Result [facility] Jose Alejandro Moore NP LAB BLOOD ORDERABLES Helene l Result Performing Organization Address City/[facility] Co de Phone Number [facility] [address] [place] [address] * Insulin antibody (04/12/2025 10:25 AM EDT) Pathologist [facility] Insulin Antibodies <5.0 uU/mL [facility] Comment: (NOTE) This test is also known as insulin autoantibody or IAA. This test was developed and its performance characteristics determined by [facility]. It has not been cleared or approved by the Food and Drug Administration. Reference Range: <5.0 Negative > or = 5.0 Positive Test Performed by: [facility] [address] [place] [address] Blood 04/12/2025 10:2 5 AM EDT 04/12/2025 10:32 AM EDT Result [facility] Jose Alejandro Moore NP LAB BLOOD ORDERABLES Helene l Result [facility] * Fructosamine (04/12/2025 10:25 AM EDT) FRUCTOSAMINE 219 200 - 285 mcmol/L [facility] DPT OF LAB MED AND PAT+ Blood 04/12/2025 10:2 5 AM EDT 04/12/2025 10:32 AM EDT Jose Alejandro Moore NP LAB BLOOD ORDERABLES Helene l Result Performing Organization Address City/[facility]/ZIP Co de Phone Number [facility] DPT OF LAB MED AND PAT+ [address] [place] [address] * C-peptide (04/12/2025 10:25 AM EDT) C-PEPTIDE 3.0 1.1 - 4.4 ng/mL [facility] Comment: (NOTE) ADDITIONAL INFORMATION Reference interval applies to fasting patients. Blood 04/12/2025 10:2 5 AM EDT 04/12/2025 10:32 AM EDT Result [facility] Jose Alejandro Moore NP LAB BLOOD ORDERABLES Helene l Result Performing Organization Address City/[facility] Co de Phone Number [facility] [address] [place] [address] * Glucose (04/12/2025 10:25 AM EDT) GLUCOSE 83 70 - 100 mg/dL [facility] Blood 04/12/2025 10:2 5 AM EDT 04/12/2025 10:32 AM EDT Jose Alejandro Moore NP LAB BLOOD ORDERABLES Helene l Result [facility] [address] [place] [address] * Lipid panel (04/12/2025 10:25 AM EDT) CHOLESTEROL 138 <200 mg/dL [facility] TRIGLYCERIDES 68 35 - 150 mg/dL [facility] HDL 47 40 - 80 mg/dL [facility] CALCULATED LDL 77 50 - 129 mg/dL [facility] VLDL 14 <31 mg/dL [facility] CARDIAC RISK RATIO 2.9 0.0 - 4.0 [facility] Blood 04/12/2025 10:2 5 AM EDT 04/12/2025 10:32 AM EDT Jose Alejandro Moore NP LAB BLOOD ORDERABLES Helene l Result Performing Organization Address [facility]/ZIP Co de Phone Number [facility] [address] [place] [address] * (ABNORMAL) POCT Glucose (04/12/2025 8:54 AM EDT) Pathologist [facility] Glucose, POCT 102(H) 70 - 100 mg/dL [facility] 04/12/2025 8:54 AM EDT 04/12/2025 8:59 AM EDT JoseA lejandro Moore NP POINT OF CARE TEST ORDERA BLES Final Result Performing Organization Address City/[facility]/ZIP Co de Phone Number [facility] [address] [place] [address], [facility] [phone] * POCT Hemoglobin A1c (04/12/2025 7:48 AM EDT) HGB A1C 5.4 4.2 - 5.6 % [facility] Comment:HbA1c levels 5.7-6.4 % represent pre-diabetes, indicating impaired glucose control and an increased risk of developing diabetes. The diagnostic HbA1c level for diabetes is 6.5% or greater. HbA1c levels <4.2% may indicate a hemoglobinopathy or anemia, and an alternative method is recommended to monitor glucose control. 04/12/2025 7:48 AM EDT 04/12/2025 3:01 PM EDT us Jose Alejandro Moore NP POINT OF CARE TEST ORDERA BLES Final Result Performing Organization Address City/[facility]/ZIP Co de Phone Number [facility] [address] [place] [address], [facility] [phone] * Basic metabolic panel (07/17/2024 1:37 PM EST) SODIUM 136 133 - 146 mmol/L [facility] CHLORIDE 99 96 - 108 mmol/L [facility] POTASSIUM 3.3 3.3 - 5.1 mmol/L [facility] CO2 26 21 - 35 mmol/L [facility] BUN 16 6 - 19 mg/dL [facility] CREATININE 0.70 0.5 - 1.5 mg/dL [facility] GLUCOSE 97 70 - 99 mg/dL [facility] CALCIUM 9.1 8.4 - 10.3 mg/dL [facility] EGFR 110 >59 mL/min/1.7 3m2 [facility] Comment:Estimated glomerular filtration rate calculated using the CKD-EPI refit equation. ANION GAP 14 10 - 20 mmol/L [facility] Blood 07/17/2024 1:37 PM EST 07/17/2024 1:52 PM EST us Jah Boggs MD LAB BLOOD ORDERABLES Final Resu lt [facility] [address] [place] [address] from Last 3 Months or Most Recently Relevant to Health Maintenance Insurance [facility] [place] [id number] Care Teams Cigarette Stamper Relationship Specialty Start Date End Date Pcp, Unknown PCP - General 07/17/24 Additional Source Comments The information contained in this document represents components of the legal health record. It is not the complete legal health record.[facility]
--- OUTSIDE RECORDS SUMMARY | 2025-05-23 12:28 | XMS_ITS | Encounter Summary ---
Author Organization Located [facility] Address [address] [facility] [address] [place] [address] Phone Care Team Providers Care Vp Transportation Name Role Phone Pcp, Unknown Primary Care Provider Unavailabl e Reason for Visit * Reason Onset Date Comments Follow-up 05/19/2025 Encounter Details Date Type Department Care Team (Late st Contact Info) Description 05/19/[address] [address] Jose Alejandro Moore, APRYL [address] [place] [address] [email or web address] Follow-up Social History Tobacco Use Types Packs/Day Years [...] Don't know 07/17/2024 1: 21 PM EST documented as of this encounter Progress Notes * Krystal Hicks LPN - 05/23/2025 9:00 AM EDT Per Provider Appointment has been transitioned to Virtual Visit : 07/19/2025 10:00 AM VIRTUAL ESTABLISHED [facility] DIABETES MED WTD Jose Alejandro Moore NP Appointment Notes: 3 month, OK for VV per RP (05/22/25) * Rubio Henderson - 05/19/2025 2:26 PM EDT Patient of Jose Alejandro Moore NP Endocrinology Patient called requesting provider callback to discuss issues she is having with transportation to upcoming appointment. # [phone] Thank you. Jerome documented in this encounter Plan of Treatment Upcoming Encounters Date Type Department Care Team (Late st Contact Info) Description 05/25/2025 4:20 PM EDT Office Visit [facility] Endocrine, Diabetes, and Hypertension [address] [place] [address] [address] [place] [address] Sameera Rey MD [address] [place] [phone] [email or web address] 05/30/2025 10:30 AM EDT [facility] [address] [place] [address], 4th Floor, [address] [place] [address] Rossy Briceño, ALLA [address] [facility]- - [address] [place] [address] [email or web address] 06/19/2025 9:00 AM EDT Office Visit [facility] Colorectal Surgery [address] [facility], [address] [place] [address] Veronica Bird, WARD AIDE [address] [place] [address] 07/19/2025 10:00 AM EST Telemedicine [facility]- Diabetes [address] [address] Jose Alejandro Moore, APRYL [address] [place] [address] [email or web address] 08/02/2025 11:20 AM EST Procedure visit [facility] Gynecology [address] [facility], 4th Floor, [address] [place] [address] Rossy Briceño, ALLA 32 [facility] [address] [place] [address] [email or web address] documented as of this encounter Visit Diagnoses Not on filedocumented in this encounter Care Teams Vp Transportation Relationship Specialty Start Date End Date Pcp, Unknown PCP - General 07/17/24 documented as of this encounter Additional Source Comments The information contained in this document represents components of the legal health record. It is not the complete legal health record.[facility]
--- OUTSIDE RECORDS SUMMARY | 2025-05-23 12:28 | XMS_ITS | Continuity of Care Document ---
Author Name Justo Erwin Address [address] [place] [address] Organization Unknown Address [address] [place] [address] Medications No known medications Problems No known problems
--- OUTSIDE RECORDS SUMMARY | 2025-05-23 12:28 | XMS_ITS | Encounter Summary ---
Author Organization [facility] Address [address] [facility] [address] [place] [address] Encounters * CPT with Justo Erwin at [facility] on 2025-02-14 Patient reports a cough and wheezing for past few days. She reports a history of asthma, bronchitisand COPD and adherence with her MDI and nebulizers. She has not been able to get into to see her doctor. She would like a visit to assess her sx and test her for COVID. Rippler was able to hear cough and wheezing over phone. { reasonForRequest : breathing problems , patientReports : &quot ;, denies :[], chiefComplaints : Breathing Problems, Cough, High Blood Pres sure , pmh : COPD/Asthma, Sleep Apnea, Hypertension, Diabetes Mellitus Type 2, F ibromyalgia, Hypothyroidism , allergies : Acetaminophen, Morphine , ot herAllergies :null, painAssessment : , visitOutcome : &quot ;, additionalComments : HPI reviewed } This 44-year-old female with a history including but not limited to COPD, sleep apnea, HTN, DM typeII, fibromyalgia, hypothyroidism requested a visit today address two days of cough and FLORES. States that cough is not yet become productive feels like there's something stuck in her throat when she iscoughing. Patient states he usually gets bronchitis twice in the winter time and twice summertime. States she normally does well with prednisone taper. Denies any chest pain, severe shortness of breath, headaches, dizziness, fevers, nausea, vomiting, diarrhea. Patient uses Symbicort daily and nebulized albuterol BID. Allergy to acetaminophen and morphine Patient presents awake and alert, in no acute distress and speaking full sentences. Her vital signsare reasonably stable and she is afebrile. FSB. Nonfocal neurological exam. Normal gait. Normal oropharynx exam. Diffuse expiratory wheezing. Abdomen is soft, nontender, nondistended. No lower ex tremity edema. Rapid COVID include testing are both negative. I treated with a duoneb resolved the wheezing, now has rhonchi. I also treated with prednisone 60 mg and doxycycline 100 mg. We discussed the diagnostic uncertainty of home visits and the risk associated with this. In this case, the patient and I felt this to be an acceptable and reasonable amount of risk given the benefitof avoiding an ED visit. I provided education on the patient's prescriptions as well as additional OTC/supported care therapy. I recommend she increase her nebulized albuterol QID, follow-up with herPCP and/or supervisor paint monitor her blood glucose levels daily. I instructed her to present to theemergency department for any new or worsening severe symptoms such as chest pain, severe shortness of breath, high fever, altered mental status. The patient was given the opportunity to ask questionsand is agreeable to this plan. IV_(FLUIDS_AND/OR_MEDICATION), MEDICATION_IM, ORAL_MEDICATION, EKG, POC_FLU_STREP, COVID_TEST, ORTHOSTATIC_VITAL_SIGNS Written by Justo Erwin on 2025-02-14
--- OUTSIDE RECORDS SUMMARY | 2025-05-23 12:28 | XMS_ITS | Encounter Summary ---
Author Organization [facility] Address [address] [facility] [address] [place] [address] Phone Care Team Providers Care Feed Mill Supervisor Name Role Phone Pcp, Unknown Primary Care Provider Unavailabl e Reason for Visit * Reason Onset Date Comments Medication Prior Authorization 05/17/2025 Encounter Details Date Type Department Care Team (Late st Contact Info) Description 05/17/2025 Telephone [facility] Endocrinology [address] [place] [address] Jose Alejandro Moore, APRYL [address] [place] [address] [email or web address] Medication Prior Authorization Social History Tobacco Use Types Packs/Day Years [...] as of this encounter Progress Notes * Joyce Shukla LPN - 05/22/2025 10:48 AM EDT [place] does not support documentation for this CGM order. The visit note does not give any recommendations about whether the order or plan of care is medically necessary or appropriate. Patients must be on insulin or with a documented history of problematic hypoglycemia require continuous glucose monitoring. * Olive Jennings - 05/17/2025 8:40 AM EDT Patient called for a Pa. RX-Dexcom 67 RX INS-[employer] RX ID-[id number] RX PCN-MEDDADV RX [id number] RX [id number] Jose Alejandro Moore NPI-[id number] Thank You Olive Barrera Medication Industrial Production Manager Department of Medicine Access Center documented in this encounter Plan of Treatment Upcoming Encounters Date Type Department Care Team (Late st Contact Info) Description 05/25/2025 4:20 PM EDT Office Visit [facility] Endocrine, Diabetes, and Hypertension [address] [place] [address] 2[address] [place] [address] Sameera Rey MD [address] [place] [address] [email or web address] 05/30/2025 10:30 AM EDT Office Visit [facility] Gynecology [address] [place] [address], 4th Floor, [address] [place] [address] Rossy Briceño, MOTOR VEHICLE LIGHT ASSEMBLER [address] [facility]- - [address] [place] [address] [email or web address] 06/19/2025 9:00 AM EDT Office Visit [facility] Colorectal Surgery [address] [facility], [address] [place] [address] Veronica Bird, MOTOR VEHICLE LIGHT ASSEMBLER [address] [place] [address] 07/19/2025 10:00 AM EST Telemedicine [facility]- Diabetes - [address] [address] Jose Alejandro Moore, ADVERTISING SALES CONSULTANT [address] [place] [address] [email or web address] 08/02/2025 11:20 AM EST Procedure visit [facility] [address] [facility], 4th Floor, [address] [place] [address] Rossy Briceño, MOTOR VEHICLE LIGHT ASSEMBLER 32 [facility] - [address] [place] [address] [email or web address] documented as of this encounter Visit Diagnoses Not on filedocumented in this encounter Care Teams Feed Mill Supervisor Relationship Specialty Start Date End Date Pcp, Unknown PCP - General 07/17/24 documented as of this encounter Additional Source Comments The information contained in this document represents components of the legal health record. It is not the complete legal health record.[facility]
--- OUTSIDE RECORDS SUMMARY | 2025-05-23 12:29 | XMS_ITS | Patient Health Record ---
Author Organization [facility] Address [address] [facility] [facility] [address] [place] [address] Care Team Providers Care Cardiac Nurse Practitioner Name Role Phone BRITTANY ROGERS Unavailable [phone] Reason For Referral No Information Encounters Encounter Location Date Provider Diagnosis [facility] [address] [place] [address] 06/30/2024 BRITTANY ROGERS Plan Of Treatment No Information Insurance Providers Payer Name Payer Address Payer Phone Subscriber Number Group Number Insured Name Patient Relationship to Insured Coverage Start Date Coverage End Date [facility] [address] [place] [address] CHRISTIN SAVAGE Self - patient is the insured
--- OUTSIDE RECORDS SUMMARY | 2025-05-23 12:29 | XMS_ITS | Encounter Summary ---
Author Organization [facility] Address [address] [facility] [address] [place] [address] Phone Care Team Providers Care Radiation Oncology Therapist Name Role Phone Pcp, Unknown Primary Care Provider Unavailabl e Reason for Visit * Reason Onset Date Comments dexcom iissue 05/22/2025 Encounter Details Date Type Department Care Team (Late st Contact Info) Description 05/22/[address] [address] Jose Alejandro Moore, APRYL [address] [place] [address] [email or web address] Social History Tobacco Use Types Packs/Day Years [...] as of this encounter Progress Notes * Keesah Morrison - 05/22/2025 10:27 AM EDT Provider name: Jose Alejandro Moore NP Reason for Call/Symptoms Pt call the office stating she was returning call from office that stated they were reacing out to help with DEXCOM, theres no encounter or notes in chart Date of last office visit with above provider: 04/12/2025 Date of next scheduled office visit with above provider: 07/19/2025 Confirm best contact number Best Call Back #: [phone] documented in this encounter Plan of Treatment Upcoming Encounters Date Type Department Care Team (Late st Contact Info) Description 05/25/2025 4:20 PM EDT Office Visit [facility] Endocrine, Diabetes, and Hypertension [address] [place] [address] Sameera Rey MD [address] [place] [address] [email or web address] 05/30/2025 10:30 AM EDT Office Visit [facility] Gyne[facility] [address] [facility], 4th Floor, [address] [place] [address] Rossy Briceño CNP [address] [facility] [address] [place] [address] [email or web address] 06/19/2025 9:00 AM EDT Office Visit [facility] Colorectal Surgery [address] [facility], [address] [place] [address] Veronica Bird, FLUX TUBE ATTENDANT [address] [place] [address] 07/19/2025 10:00 AM EST Telemedicine [facility]- Diabetes [address] [address] Jose Alejandro Moore, APRYL [address] [place] [address] [email or web address] 08/02/2025 11:20 AM EST Procedure visit [facility] [address] [facility], 4th Floor, [address] [place] [address] Rossy Briceño, FLUX TUBE ATTENDANT 32 [facility]04[address]4E [address] [place] [address] [email or web address] documented as of this encounter Visit Diagnoses Not on filedocumented in this encounter Care Teams Radiation Oncology Therapist Relationship Specialty Start Date End Date Pcp, Unknown PCP - General 07/17/24 documented as of this encounter Additional Source Comments The information contained in this document represents components of the legal health record. It is not the complete legal health record.[facility]
== END 2025-05-23 11:32 | disposition home or self-care (01) ==
LOC: HO.HSM 10:58
PROVIDERS: PCP Internal Medicine; Referring Provider Internal Medicine; Visit Provider Psychiatry & Neurology Neurology
DX: G43.909 Migraine, unspecified, not intractable, without status migrainosus (principal); M79.7 Fibromyalgia; S09.90XA Unspecified injury of head, initial encounter
CPT/HCPCS: 99214

== ENCOUNTER → 2025-05-23 10:58 | Outpatient (BNVA) | payer OTHER, SELFPAY | PROVIDERS: PCP Internal Medicine; Referring Provider Internal Medicine; Visit Provider Psychiatry & Neurology Neurology | DX: M79.7 Fibromyalgia (principal); G43.909 Migraine, unspecified, not intractable, without status migrainosus; Z87.820 Personal history of traumatic brain injury | CPT/HCPCS: 99212 ==

== ENCOUNTER 2025-06-10 08:08 | Outpatient (REF) | payer OTHER, SELFPAY ==
--- OUTSIDE RECORDS SUMMARY | 2024-06-30 05:10 | XMS_ITS ---
Author Organization [facility] Address [address] [place] [address] Care Team Providers Care Process Validation Engineer Name Role Phone BRITTANY ROGERS Unavailable [phone] REASON FOR VISIT ENDOMETRIOSIS Encounters Encounter Location Date Provider Diagnosis [facility] [address] [facility] [address] [place] [address] 06/30/2024 BRITTANY ROGERS Plan Of Treatment No Information Progress Notes * SHAY SAVAGEOBEDB: 1 (44 yo F)Acc No.[id number]:06/30/2024 Progress Note Patient: GINNY FLORESITHA Provider: Rickie ROGERS MD :1980 A ge:44 Y S ex:Female Date:06/30/2024 Address:[address] [place] [address], [id number] Subjective: * Chief Complaints: * 1 . ENDOMETRIOSIS. * Medical History: Objective: * Vitals: Assessment: Plan: * Treatment: * Images: Billing Information: * Visit Code: * Procedure Codes: * Electronic signature of BRITTANY ROGERS MD on 06/10/2025 at 08:10 AM EDT Sign off status: Pending * Provider: Rickie ROGERS MD Date: 08/30/2023 Generated for Michellei becki/Tomer/eTransmitting on: 08:10 AM EDT
--- NOTE | ~2025-06-10 | CT_ITS ---
CLINICAL HISTORY: S09.90XA - Unspecified injury of head, initial encounter CT head without contrast Comparison: CT/REG/SR - BRAIN WO IV CONTRAST [id number] - 01/31/20 10:53 EDT Findings: No intra-axial mass, midline shift, hydrocephalus, or acute hemorrhage. Motion artifact present. No significant atrophy-like change or white matter disease. The visualized paranasal sinuses and mastoid air cells are normal. The orbits are unremarkable. There is no acute fracture. IMPRESSION: 1. No acute intracranial findings. This document has been electronically signed by: Ernesto Baker MD on 06/13/2025 02:44:17
--- OUTSIDE RECORDS SUMMARY | 2025-06-10 08:10 | XMS_ITS | Encounter Summary ---
Author Organization [facility] Address [address] [facility] [address] [place] [address] Phone Care Team Providers Care Informatics Coordinator Name Role Phone Pcp, Unknown Primary Care Provider Venice Tompkins Primary Care Provider [phone] Reason for Visit * Reason Onset Date Comments Medication Prior Authorization 05/17/2025 Encounter Details Date Type Department Care Team (Late st Contact Info) Description 05/17/2025 Telephone [facility] [address] [place] [address] Jose Alejandro Moore NP [address] [place] [address] [email or web address] Medication Prior Authorization Social History Tobacco Use [...] of this encounter Progress Notes * Joyce Shukal LPN - 05/22/2025 10:48 AM EDT [place] does not support documentation for this CGM [...] Pa. RX-Dexcom 67 RX [employer] RX ID-[id number] RX PCN-MEDDADV RX [id number] RX [id number] Jose Alejandro Moore NPI-[id number] Thank You Olive Barrera Medication Plate Keeper Department of Medicine Access Center documented in this encounter Plan of Treatment Upcoming Encounters Date Type Department Care Team (Late st Contact Info) Description 06/19/2025 9:00 AM EDT Office Visit [facility] [address] [facility], [address] [place] [address] Veronica Bird CNP [address] [place] [address] 06/19/2025 1:40 PM EDT Office [facility] Endocrine, Diabetes, and Hypertension [address] [facility] 2nd [place] [address] Thalia Romano MD, PhD [address] [place] [address] [email or web address] 07/19/2025 10:00 AM EST Telemedicine [facility]- Diabetes - [address] [address] Jose Alejandro Moore, APRYL [address] [place] [address] [email or web address] 08/02/2025 11:20 AM EST Procedure visit [facility] [address] [facility], 4th Floor, [address] [place] [address] Rossy Briceño, ALLA 32 [facility] [address] [email or web address] documented as of this encounter Visit Diagnoses Not on filedocumented in this encounter Care Teams Informatics Coordinator Relationship Specialty Start Date End Date Pcp, Unknown PCP - General 07/17/24 05/25/25 Venice Sifuentes PA [address] [facility] 1 [place] [address] PCP - General Physician Shop Teacher 05/26/25 documented as of this encounter Additional Source Comments The information contained in this document represents components of the legal health record. It is not the complete legal health record.[facility]
--- OUTSIDE RECORDS SUMMARY | 2025-06-10 08:10 | XMS_ITS | Clinical Summary ---
Author Organization [facility] Address [address] [place] [address] Phone Care Team Providers Care Artist'S Manager Name Role Phone Venice Sifuentes Primary Care [...] medications Anxiety 07/05/2019 Depression 07/05/2019 Marijuana dependence ([facility] V24, [facility] V28) 07/05/2019 Asthma, severe persistent ([facility] V28) 07/05/20 19 Immunizations Immunization Administration Dates Next Due PPD Test 02/25/2001,02/22/2001 Surgical History Surgery Date Site/Laterality Comments ANKLE SURGERY 2022 Right PROCEDURE: HISTORICAL ANKLE SURGERY Medical History Medical History Date Comments Anxiety 07/05/2019 DX:Anxiety Asthma, severe persistent ([facility] V28) 07/05/20 19 DX:Asthma, severe persistent Depression 07/05/2019 DX:Depression Hypertension 07/05/2019 DX:Hypertension Marijuana dependence ([facility]/ C V24, [facility] V28) 07/05/2019 DX:Marijuana dependence (HCC ) Morbid obesity with BMI of 4 5.0-49.9, adult ([facility] V24, [facility] V28) 07/05/2019 DX:Morbid obesity wit h BMI of 45.0-49.9, adult ([facility]) Tobacco use 07/05/2019 DX:Tobacco use; COMMENT: [...] Cervical Cancer Screening: P ap Smear 2002 HPV Vaccines (1 - 3-dose SCD M series) 2008 Cholesterol Screening (Lipid Panel) 07/26/2022 HIV Screening 07/26/2022 Medicare Annual Wellness Visit 07/26/2022 Social Influencers of Health Screening 07/26/2022 Depression Screening 08/24/2024 COVID-19 Vaccine (1 - 2023-2 5 season) 2025 Influenza Vaccine (#1) 2025 Hypertension/CHF/CAD Annual BMP Blood Test 02/09/2026 02/09/2025, 07/08/2024, 03/10/2005 RSV Immunization Adult Patients (1 - 1-dose 75+ series) 2056 Hepatitis C Screening Completed 10/31/2002 HIB Vaccines [...] mmol/L LAB CHEMISTRY METHOD 02/09/2025 2:30 PM [facility] Potassium 3.8 3.5 - 5.5 mmol/L LAB CHEMISTRY METHOD 02/09/2025 2:30 PM [facility] Chloride 112(H) 96 - 110 mmol/L LAB CHEMISTRY METHOD 02/09/2025 2:30 PM [facility] CO2 22 21 - 32 mmol/L LAB CHEMISTRY METHOD 02/09/2025 2:30 PM [facility] Anion Gap 7 3 - 11 LAB CHEMISTRY METHOD 02/09/2025 2:30 PM [facility] Glucose 97 70 - 100 mg/dL LAB CHEMISTRY METHOD 02/09/2025 2:30 PM [facility] BUN 11 5 - 25 mg/dL LAB CHEMISTRY METHOD 02/09/2025 2:30 PM [facility] Creatinine 0.63 0.50 - 1.10 mg/dL LAB CHEMISTRY METHOD 02/09/2025 2:30 PM [facility] eGFR 113 >=60 mL/min/1. 73m2 LAB CHEMISTRY METHOD 02/09/2025 2:30 PM [facility] Comment:Calculation based on the Chronic Kidney Disease Epidemiology Collaboration (CKD-EPI) equation refit without adjustment for race. BUN/Creatinine Ratio 17.5 LAB CHEMISTRY METHOD 02/09/2025 2:30 PM [facility] Calcium 8.7 8.5 - 10.5 mg/dL LAB CHEMISTRY METHOD 02/09/2025 2:30 PM [facility] AST (SGOT) 10 10 - 42 unit/L LAB CHEMISTRY METHOD 02/09/2025 2:30 PM [facility] ALT (SGPT) 15 10 - 60 unit/L LAB CHEMISTRY METHOD 02/09/2025 2:30 PM [facility] Alkaline Phosphatase 58 42 - 121 unit/L LAB CHEMISTRY METHOD 02/09/2025 2:30 PM [facility] Total Protein 6.1 6.0 - 8.0 g/dL LAB CHEMISTRY METHOD 02/09/2025 2:30 PM [facility] Albumin 3.0(L) 3.2 - 5.0 g/dL LAB CHEMISTRY METHOD 02/09/2025 2:30 PM [facility] Total Bilirubin 0.3 0.0 - 1.4 mg/dL LAB CHEMISTRY METHOD 02/09/2025 2:30 PM [facility] Blood Venous blood specimen / Unknown Venipuncture / Unknown 02/09/2025 1:46 PM EDT 02/09/2025 1:56 PM EDT Krzysztof Christy MD LAB BLOOD ORDERABLES Final Resu lt [facility] [address] [place] [address], * Hepatitis C Screening (10/31/2002) Hepatitis C Screening abstracted us Historical Provider HEALTH MAINTENANCE Final Result from Last 3 Months or Most Recently Relevant to Health Maintenance Insurance [employer] Member Subscriber Plan / Payer (Ef fective 2023-Present) Name:SANDY DRAKE Relation to Subscriber:Self Name:Sandy Drake Payer ID:[id number] Group ID:[id number] Type:Not on file Address: [place] [address] [place] [place] [phone] Advance Directives Documents on File Type Date Recorded Patient Firestopper Technician Expl anation Health Care Decision (hx) 01/22/2023 AD KNOWLES DIRECTIVE Health Care Decision (hx) 01/22/2023 AD KNOWLES DIRECTIVE Health Care Decision (hx) 01/22/2023 AD KNOWLES DIRECTIVE Health Care Decision (hx) 01/22/2023 AD KNOWLES DIRECTIVE Health Care Decision (hx) 01/22/2023 AD KNOWLES DIRECTIVE Health Care Decision (hx) 01/22/2023 AD KNOWLES DIRECTIVE Health Care Decision (hx) 01/22/2023 AD KNOWLES DIRECTIVE Care Teams Artist'S Manager Relationship Specialty Start Date End Date Venice Sifuentes PA [address] [place] [phone] PCP - General Physician Practice Or Student Teacher 07/26/24
--- OUTSIDE RECORDS SUMMARY | 2025-06-10 08:11 | XMS_ITS | Clinical Summary ---
Author Organization [facility] Address [address] [facility] [address] [place] [address] Phone Care Team Providers Care Power Generation Turbine Room Operator Name Role Phone Venice Sifuentes Primary Care Provider Allergies Active Allergy Reactions Criticality Noted Date Comments Acetaminophen 07/17/2024 Allergen Mvj-Autdu-Obyvx Bee 024 Bee Venom Protein (Honey Bee) 2023 Morphine 01/21/2023 Medications medroxyPROGESTE Anton (PROVERA) 10 MG tablet Take 1 tablet by mouth every 6 hours until the bleeding stops. Then take 1 tablet daily until you see your car repairman. 60 tablet 4 Active traMADoL (ULTRAM) 50 mg tablet TAKE 1 TO 2 TABLETS BY MOUTH TWICE A DAY NEEDED 4 Active valsartan (DIOVAN) 160 MG tablet Take 160 mg by mouth 2 (two) times a day. Active levothyroxine (SYNTHROID, LEVOTHROID) 175 MCG tablet Take 1 tablet by mouth every morning. 4 Active glycerin, adult, Supp INSERT 1 SUPPOSITORY IN THE RECTUM DAILY NEEDED NEEDED FOR CONSTIPATION 4 Active lactulose bulk (CONSTULOSE) 10 gram/15 mL solution TAKE 15 ML BY MOUTH TWICE A DAY NEEDED FOR CONSTIPATION 4 Active SAVELLA 12.5 mg Tab 4 Active lubiprostone (AMITIZA) 24 MCG capsule TAKE 1 CAPSULE BY MOUTH DAILY DAILY FOR CONSTIPATION 4 Active docusate sodium (COLACE) 100 MG capsule TAKE 1 CAPSULE BY MOUTH TWICE A DAY NEEDED FOR CONSTIPATION. TAKE WITH SENNA 4 Active carvedilol (COREG) 25 MG tablet Take 1 tablet by mouth 2 (two) times a day. 4 Active budesonide-form oterol 160-4.5 mcg/actuation inhaler Inhale 2 puffs into the lungs 2 (two) times a day. 4 Active bisacodyl (DULCOLAX) 10 mg suppository INSERT 1 SUPPOSITORY RECTALLY DAILY NEEDED FOR CONSTIPATION 4 Active LAXATIVE, BISACODYL, 5 mg EC tablet TAKE 2 TABLETS BY MOUTH AT BEDTIME FOR 30 DAYS 4 Active ALPRAZolam (XANAX) 0.5 MG tablet Take 0.5 mg by mouth 3 (three) times a day as needed. 4 Active albuterol 2.5 mg /3 mL (0.083 %) nebulizer solution INHALE 1 VIAL VIA NEBULIZER FOUR TIMES A DAY NEEDED FOR ASTHMA 4 Active albuterol 90 mcg/actuation inhaler INHALE 2 PUFFS INTO THE LUNGS EVERY 4 TO 6 HOURS NEEDED 4 Active blood-glucose sensor (Camera360 G7 SENSOR) DeviIndications :Type 2 diabetes mellitus with hyperglycemia, without long-term current use of insulin Use 1 device every 10 days 9 each 2 5 Active norethindrone (AYGESTIN) 5 mg tablet Take 1 tablet (5 mg total) by mouth daily. 90 tablet 3 5 Active metroNIDAZOLE (FLAGYL) 500 MG tablet Take 1 tablet (500 mg total) by mouth 2 (two) times a day. 14 tablet 5 Active Active Problems No known active problems Encounters Date Type Department Care Team Description 05/25/2025 Telephone [facility] Endocrine, Diabetes, and Hypertension [address] [address] Gracy Forrester [place] 05/25/2025 Telephone [facility] Endocrine, Diabetes, and Hypertension [address] [address] Gracy Forrester [place] 05/25/2025 Telephone [facility] Endocrine, Diabetes, and Hypertension [address] [address] Gracy Forrester [place] 05/22/2025 Telephone [facility]- Diabetes [address] [address] Jose Alejandro Moore, APRYL dexcom iissue 05/19/[address] [address] Jose Alejandro Moore, APRYL Follow-up 05/17/2025 Telephone [facility] Endocrinology [address] [place] [address] Jose Alejandro Moore, APRYL Medication Prior Authorization 05/09/2025 Telephone [facility] Gynecology [address] [facility], 4th Floor, [address] [place] [address] Rossy Briceño CNP Triage (Keyanna pt, asking if she needs to come in for retesting to see if the infection is cleared) 05/01/2025 8:30 AM EDT Office Visit Minimally Invasive Gynecologic Surgery [address] [facility], 4th Floor, [address] [place] [address] Rossy Briceño CNP Premenopausal menorrhagia (Primary Dx); Healthcare maintenance; Vaginal itching; Unprotected sex; Screening for human immunodeficiency virus; Need for hepatitis B screening test; test negative; Trichomonas infection 04/27/2025 Telephone [facility] Diabetes [address] [address] Neda Norton [place] Medication Prior Authorization 04/25/2025 Telephone [facility]- Diabetes [address] [address] Jose Alejandro Moore NP Medication Question; Medication Refill; Labs 04/12/2025 10:16 AM EDT - 04/12/2025 11:59 PM EDT Hospital Encounter [facility] - Phlebotomy - [address] [address] Jose Alejandro Moore NP Discharge Disposition: Home or Self Care 04/12/2025 9:00 AM EDT Office Visit [facility]- Diabetes - [place] [address] [place] [address] Jose Alejandro Moore NP Type 2 diabetes mellitus with hyperglycemia, without long-term current use of insulin (Primary Dx) from Last 3 Months Social History Tobacco [...] [facility] [address] [facility], [address] [place] [address] Veronica Bird, RECRUITING ASSISTANT [address] [place] [address] [email or web address] 06/19/2025 1:40 PM EDT Office Visit [facility] Endocrine, Diabetes, and Hypertension [address] [facility] 2nd [place] [address] Thalia Romano MD, PhD [address] [place] [address] [email or web address] 07/19/2025 10:00 AM EST Telemedicine [facility] Diabetes - [address] [address] Jose Alejandro Moore, APRYL [address] [place] [address] [email or web address] 08/02/2025 11:20 AM EST Procedure visit [facility] Gynecology [address] [facility], 4th Floor, [address] [place] [address] Rossy Briceño, ALLA [address] [facility] [place] [address] [email or web address] Health Maintenance Due Date Last Done Comments Adult Td,Tdap Booster 1981 TSH LEVEL 1981 DEPRESSION SCREENING 1993 SMOKING Hx and SMOKELESS TOB ACCO SCREENING 1994 HEPATITIS C SCREENING 1999 PNEUMOCOCCAL VACCINES (0-49 years) (1 of 2 - PCV) 2000 MAMMOGRAM 2021 INFLUENZA VACCINE (#1) 2025 DIABETIC EYE EXAM 04/12/2025 COVID-19 VACCINE (1 - 2024-2 6 season) 2025 CREATININE LEVEL 07/17/2025 07/17/2024 POTASSIUM [...] POCT Other 05/01/2025 10:4 0 AM EDT us Rossy Briceño CNP POINT OF CARE TEST ORDERABLES Final Result * POCT EVELINE Wet Prep (05/01/2025 10:39 AM EDT) Yeast - POCT Absent Absent Whiff Test - POCT Negative Negative Other 05/01/2025 10:3 9 AM EDT Rossy Briceño [facility] POINT OF CARE TEST ORDERABLES Final Result * (ABNORMAL) POCT Vaginal PH for Vaginosis/Vaginitis (05/01/2025 10:05 AM EDT) Vaginal pH 6.0(A) 0 - 4.5 Interpretation Body Fluid (Vaginal) 05/01/2025 10:05 AM EDT [facility] POINT OF CARE TEST ORDERABLES Final Result * Chlamydia Trachomatis and Neisseria Gonorrhoeae Nucleic Acid Detection (05/01/2025 9:46 AM EDT) C.TRACHOMATIS, AMP Chlamydia trachomatis (CT) DNA NOT DETECTED Chlamydia trachomatis (CT) DNA NOT DETECTED [facility] Comment: This test is not recommended [...] caution. Specimen type (C. Trachomatis DNA) VAGINAL [facility] N.Gonorrhoeae, AMP Neisseria Gonorrhoeae (NG) DNA NOT DETECTED Neisseria Gonorrhoeae (NG) DNA NOT DETECTED [facility] Comment: This test is not recommended [...] interpret results with caution. Specimen type [facility]AL [facility] Other (Vaginal) 05/01/2025 9 :46 AM EDT 05/01/2025 2:30 PM EDT Rossy Briceño [facility] NON CULTURE MICROBIOLOGY Helene l Result [facility] [address] [place] [address] * (ABNORMAL) Trichomonas nucleic acid detection (05/01/2025 9:46 AM EDT) SPECIMEN TYPE [facility] TRICHOMONAS AMP Trichomonas vaginalis DNA DETECTED(A) Trichomonas vaginalis DNA NOT DETECTED [facility] Comment: This assay is not recommended for evaluation of suspected sexual abuse and for other medico-legal indications. It should also not be used to determine therapeutic success as DNA may persist despite successful antimicrobial therapy. This assay has not been evaluated in patients younger than 18 years of age. 05/01/2025 9:46 AM EDT 05/01/2025 2:34 PM EDT Rossy Briceño CNP NON CULTURE MICROBIOLOGY Helene l Result Performing Organization Address City/[facility]/ZIP Co de Phone Number [place] [phone] * Fungal culture (05/01/2025 9:46 AM EDT) Pathologist [facility] Special Requests No Special Requests 05/01/2025 9:46 AM EDT [facility] Fungal Culture Only NO FUNGUS OR YEAST ISOLATED AFTER 7 DAYS 05/08/2025 9:12 AM EDT [facility] Other (Vaginal) 05/01/2025 9 :46 AM EDT 05/01/2025 12:22 PM EDT us Rossy Briceño CNP MICROBIOLOGY - GENERAL ORDERA BLES Final Result Performing Organization Address [facility]/ZIP Co de Phone Number [address] [address] * Poct Urine HCG (05/01/2025 9:44 AM EDT) HCG, urine Negative, Internal QCs acceptable Negative Other 05/01/2025 9:44 AM EDT us Rossy Briceño CNP POINT OF CARE TEST ORDERABLES Final Result * HIV-1/2 antigen/antibody (05/01/2025 9:43 AM EDT) Pathologist [facility] HIV 1/2 AB/AG Non-Reac tive Non-Reac tive [facility] Comment: A Non-Reactive result does not [...] 9:43 AM EDT 05/01/2025 12:28 PM EDT [facility] LAB BLOOD ORDERABLES Final Re sult Performing Organization Address [facility] Co de Phone Number [address] [address] * Syphilis antibody screen (05/01/2025 9:43 AM EDT) [facility] Syphilis Antibody Screen Non-React isela Non-React isela [facility] Comment: INTERPRETATION: Negative for syphilis antibodies. NOTE: This specimen was screened for syphilis using a specific immunoassay for the detection of IgG and IgM Treponema pallidum antibodies. This test has replaced the Non-Treponemal RPR as the initial screening antibody test for syphilis at [facility], because it is more sensitive and specific. Blood 05/01/2025 9:43 AM EDT 05/01/2025 12:14 PM EDT [facility] LAB BLOOD ORDERABLES Final Re sult Performing Organization Address [facility] de Phone Number [address] [address] * Hepatitis B surface antigen (05/01/2025 9:43 AM EDT) [facility] HBV SURFACE ANTIGEN Negative Negative [facility] Blood 05/01/2025 9:43 AM EDT 05/01/2025 12:28 PM EDT us Rossy Briceño CNP LAB BLOOD ORDERABLES Final Re sult [address] [address] * Pap Test (05/01/2025 12:00 AM EDT) 05/01/2025 05/01/2025 2:0 8 PM EDT Narrative SEE NARRATIVE - 05/16/2025 3:53 [place] [address] ANGLE DOZER OPERATOR Cytology Report Patient Name: CHRISTIN DRAKE : 1980 (Age: 44) Sex: F Institution: [facility] Location: [facility] Date of Collection: 05/01/2025 Date of Reported: 05/16/2025 15:53 Results to: Rossy Briceño CNP FINAL DIAGNOSIS A. CERVICAL, LIQUID BASED SPECIMEN: SPECIMEN ADEQUACY: Satisfactory for evaluation. INTERPRETATION: NEGATIVE FOR INTRAEPITHELIAL LESION OR MALIGNANCY. ADDITIONAL INFORMATION: Trichomonas vaginalis. This specimen was pre-screened using the ThinPrep Imaging System. Electronically Signed Out By: ALEXANDER Colin(ASCP)MEDARDO Cervical cytology is a screening test primarily [...] by real-time polymerase chain reaction (PCR) at [facility], [address] [place] [address] using the FDA-approved BD Onclarity HPV Assay with extended genotyping. Uses of the assay in scenarios other than those approved by the FDA should be considered off-label use. The accuracy and precision of this test for all other off-label specimen sources has been verified in the Cytopathology Laboratory of the [facility] and has not been cleared or [...] A: CERVICAL, LIQUID BASED SPECIMEN Rossy Briceño RECRUITING ASSISTANT CYTOLOGY ORDERABLES Final Res ult Performing Organization Address [facility] Co de Phone Number SEE NARRATIVE * (ABNORMAL) Microalbumin/creatinine ratio, random urine (04/12/2025 10:42 AM EDT) UR CREATININE 106.6 mg/dL [facility] Comment: No reference values apply. Interpret with other clinical data. MALB/CRE 104.1(H) 0.0 - 30.0 mg/Alb/g Cre [facility] URINE MICROALBUMIN 11.1(H) 0.0 - 2.0 mg/dL [facility] Urine (Urine) 04/12/2025 10: 42 AM EDT 04/12/2025 10:46 AM EDT Jose Alejandro Moore COMMUNITY SERVICE OFFICER COORDINATOR URINE ORDERABLES Final Re sult Performing Organization Address [facility] Co de Phone Number [facility] [address] [place] [address] * Zn transporter 8 antibody (04/12/2025 10:25 AM EDT) Zinc T8 Ab (U/mL) <15.0 <15.0 U/mL [facility] DPT OF LAB MED AND PAT+ Comment: (NOTE) ADDITIONAL INFORMATION This test has been modified from the steam tender's instructions. Its performance characteristics were determined by [facility] in a manner consistent with CLIA requirements. This test has not been cleared or approved by the U.S. Food and Drug Administration. Blood 04/12/2025 10:2 5 AM EDT 04/12/2025 10:32 AM EDT Jose Alejandro Moore NP LAB BLOOD ORDERABLES Helene l Result Performing Organization Address City[facility]/ZIP Co de Phone Number [facility] DPT OF LAB MED AND PAT+ [address] [place] [address] * ISLET CELL ANTIBODY (04/12/2025 10:25 AM EDT) Pathologist [facility] ISLET CELL ANTIBODY <1:4 <1:4 [facility] Comment: (NOTE) INTERPRETIVE INFORMATION: Islet Cell Ab, [...] developed and its performance characteristics determined by [facility]. It has not been cleared or approved by the US Food and Drug Administration. This test was performed in a CLIA certified laboratory and is intended for clinical purposes. Performed By: [facility] [address] [place] [address] Microfilm Operator: Gerber Brown MD, PhD CLIA Number: [id number] Blood 04/12/2025 10:2 5 AM EDT 04/12/2025 10:32 AM EDT Jose Alejandro Moore NP LAB BLOOD ORDERABLES Ehlene l Result Performing Organization Address [facility] Co de Phone Number [facility] [address] [phone] * Islet antigen 2 (IA2) antibody (04/12/2025 10:25 AM EDT) IA-2 Autoantibodies <7.5 U/mL [facility] Comment: (NOTE) Reference Range: <7.5 Negative > or = 7.5 Positive Test Performed by: [facility] [address] [place] [address] Blood 04/12/2025 10:2 5 AM EDT 04/12/2025 10:32 AM EDT Jose Alejandro Moore NP LAB BLOOD ORDERABLES Helene l Result Performing Organization Address [facility] Co de Phone Number [facility] * GAD65 antibody, blood (04/12/2025 10:25 AM EDT) GAD65 ANTIBODY 0.00 <=0.02 nmol/L [facility] DPT OF LAB MED AND PAT+ Comment: (NOTE) ADDITIONAL INFORMATION This test was developed and its performance characteristics determined by [facility] in a manner consistent with CLIA requirements. This test has not been cleared or approved by the U.S. Food and Drug Administration. Blood 04/12/2025 10:2 5 AM EDT 04/12/2025 10:32 AM EDT Jose Alejandro Moore NP LAB BLOOD ORDERABLES Helene l Result Performing Organization Address [facility] Co de Phone Number [facility] DPT OF LAB MED AND PAT+ [address] [place] [address] * LFTs (hepatic panel) (04/12/2025 10:25 AM EDT) TOTAL PROTEIN 7.3 6.4 - 8.3 g/dL [facility] ALBUMIN 4.2 3.5 - 5.2 g/dL [facility] GLOBULIN 3.1 2.2 - 4.2 g/dL [facility] AST 12 10 - 50 U/L [facility] ALT 12 10 - 50 U/L [facility] ALKALINE PHOSPHATASE 70 35 - 130 U/L [facility] TOTAL BILIRUBIN 0.3 0.0 - 1.0 mg/dL [facility] DIRECT BILIRUBIN 0.1 0.0 - 0.3 mg/dL [facility] Blood 04/12/2025 10:2 5 AM EDT 04/12/2025 10:32 AM EDT Jose Alejandro Moore NP LAB BLOOD ORDERABLES Helene l Result [facility] [address] [place] [address] * Insulin antibody (04/12/2025 10:25 AM EDT) Insulin Antibodies <5.0 uU/mL [facility] Comment: (NOTE) This test is also known as insulin autoantibody or IAA. This test was developed and its performance characteristics determined by [facility]. It has not been cleared or approved by the Food and Drug Administration. Reference Range: <5.0 Negative > or = 5.0 Positive Test Performed by: [facility] [address] [place] [address] Blood 04/12/2025 10:2 5 AM EDT 04/12/2025 10:32 AM EDT Jose Alejandro Moore NP LAB BLOOD ORDERABLES Helene l Result Performing Organization Address [facility] Co de Phone Number [facility] * Fructosamine (04/12/2025 10:25 AM EDT) FRUCTOSAMINE 219 200 - 285 mcmol/L [facility] DPT OF LAB MED AND PAT+ Blood 04/12/2025 10:2 5 AM EDT 04/12/2025 10:32 AM EDT Jose Alejandro Moore NP LAB BLOOD ORDERABLES Helene l Result [facility] DPT OF LAB MED AND PAT+ [address] [place] [address] * C-peptide (04/12/2025 10:25 AM EDT) C-PEPTIDE 3.0 1.1 - 4.4 ng/mL [facility] Comment: (NOTE) ADDITIONAL INFORMATION Reference interval applies to fasting patients. Blood 04/12/2025 10:2 5 AM EDT 04/12/2025 10:32 AM EDT Jose Alejandro Moore NP LAB BLOOD ORDERABLES Helene l Result [facility] [address] [place] [address] * Glucose (04/12/2025 10:25 AM EDT) Pathologist [facility] GLUCOSE 83 70 - 100 mg/dL [facility] Blood 04/12/2025 10:2 5 AM EDT 04/12/2025 10:32 AM EDT Jose Alejandro Moore NP LAB BLOOD ORDERABLES Helene l Result Performing Organization Address [facility] Co de Phone Number [facility] [address] [place] [address] * Lipid panel (04/12/2025 10:25 AM EDT) CHOLESTEROL 138 <200 mg/dL [facility] TRIGLYCERIDES 68 35 - 150 mg/dL [facility] HDL 47 40 - 80 mg/dL [facility] CALCULATED LDL 77 50 - 129 mg/dL [facility] VLDL 14 <31 mg/dL [facility] CARDIAC RISK RATIO 2.9 0.0 - 4.0 [facility] Blood 04/12/2025 10:2 5 AM EDT 04/12/2025 10:32 AM EDT Jose Alejandro Moore NP LAB BLOOD ORDERABLES Helene l Result Performing Organization Address [facility] Co de Phone Number [facility] [address] [place] [address] * (ABNORMAL) POCT Glucose (04/12/2025 8:54 AM EDT) Pathologist [facility] Glucose, POCT 102(H) 70 - 100 mg/dL [facility] 04/12/2025 8:54 AM EDT 04/12/2025 8:59 AM EDT Jose Alejandro Moore NP POINT OF CARE TEST ORDERA BLES Final Result Performing Organization Address [facility] Co de Phone Number [facility] [address] [place] [address], [facility] [phone] * POCT Hemoglobin A1c (04/12/2025 7:48 AM EDT) [facility] HGB A1C 5.4 4.2 - 5.6 % [facility] Comment:HbA1c levels 5.7-6.4 % represent pre-diabetes, indicating impaired glucose control and an increased risk of developing diabetes. The diagnostic HbA1c level for diabetes is 6.5% or greater. HbA1c levels <4.2% may indicate a hemoglobinopathy or anemia, and an alternative method is recommended to monitor glucose control. 04/12/2025 7:48 AM EDT 04/12/2025 3:01 PM EDT Jose Alejandro Moore NP POINT OF CARE TEST ORDERA BLES Final Result [facility] [address] [place] [address], [facility] [phone] * Basic metabolic panel (07/17/2024 1:37 PM EST) [facility] SODIUM 136 133 - 146 mmol/L [facility] CHLORIDE 99 96 - 108 mmol/L [facility] POTASSIUM 3.3 3.3 - 5.1 mmol/L [facility] CO2 26 21 - 35 mmol/L [facility] BUN 16 6 - 19 mg/dL [facility] CREATININE 0.70 0.5 - 1.5 mg/dL [facility] GLUCOSE 97 70 - 99 mg/dL [facility] CALCIUM 9.1 8.4 - 10.3 mg/dL [facility] EGFR 110 >59 mL/min/1.7 3m2 [facility] Comment:Estimated glomerular filtration rate calculated using the CKD-EPI refit equation. ANION GAP 14 10 - 20 mmol/L [facility] Blood 07/17/2024 1:37 PM EST 07/17/2024 1:52 PM EST us Jah Boggs MD LAB BLOOD ORDERABLES Final Resu lt [facility] [address] [place] [address] from Last 3 Months or Most Recently Relevant to Health Maintenance [place] [address] [place] [address] [employer] MEDICARE REPLACEMENT [address] [facility] [address] ONE CARE MEDICARE REPLACEMENT [facility] ONE CARE MEDICARE REPLACEMENT Care Teams Power Generation Turbine Room Operator Relationship Specialty Start Date End Date Venice Sifuentes PA [address] [place] [address] [address] [place] [address] PCP - General Physician Marketing And Development Coordinator 05/26/25 Additional Source Comments The information contained in this document represents components of the legal health record. It is not the complete legal health record.[facility]
--- OUTSIDE RECORDS SUMMARY | 2025-06-10 08:11 | XMS_ITS | Patient Health Record ---
Author Organization [facility] Address [address] [place] [address] Care Team Providers Care Financial Sales Associate Name Role Phone BRITTANY ROGERS Unavailable [phone] Reason For Referral No Information Encounters Encounter Location Date Provider Diagnosis [facility] [address] [place] [address] 06/30/2024 BRITTANY ROGERS Plan Of Treatment No Information Insurance Providers Payer Name Payer Address Payer Phone Subscriber Number Group Number Insured Name Patient Relationship to Insured Coverage Start Date Coverage End Date [facility] [address] [place] [address] CHRISTIN SAVAGE Self - patient is the insured
== END 2025-06-10 08:09 | disposition home or self-care (01) ==
LOC: HO.CT 08:08
PROVIDERS: PCP Internal Medicine; Visit Provider Psychiatry & Neurology Neurology
DX: S09.90XA Unspecified injury of head, initial encounter (principal)
CPT/HCPCS: 70450

== ENCOUNTER → 2025-06-10 08:10 | Outpatient (BNV) | payer OTHER, SELFPAY | PROVIDERS: PCP Internal Medicine; Visit Provider Radiology Diagnostic Radiology | DX: S09.90XA Unspecified injury of head, initial encounter (principal) | CPT/HCPCS: 70450 ==